=== PATIENT | male | born 1970 | race African-American/Black ===

== ENCOUNTER 2023-08-12 11:30 | Inpatient (IN) | payer OTHER, SELFPAY ==
[2023-08-12] VITALS (11 sets, daily range): BP systolic 123–162; BP diastolic 72–94; BMI 29.3; BMI 28.7
[2023-08-12] MEDS: TYLENOL 1000 MG PO (05:54)
[2023-08-12 06:21] LABS: % Basophils 0.3 % (0-2); % Immature Granulocytes 0.6 % (0-0.5); % Lymphocytes 13.3 % (20.5-51.1); % Monocytes 12.2 % (1.7-9.3); % Neutrophils 72.6 % (42.2-75.2); Absolute Eosinophils 0.1 10^3/uL (0-0.7); Absolute Immature Granulocytes 0.1 10^3/uL (0-0.05); Absolute Lymphocytes 1.6 10^3/uL (1.2-3.4); Absolute Monocytes 1.4 10^3/uL (0.1-0.6); Absolute Neutrophils 8.6 10^3/uL (1.4-6.5); Hematocrit 29.9 % (39.0-52.0); Hemoglobin 10.3 g/dL (13.0-18.0); Mean Corp Hgb Conc. 34.4 g/dL (33.0-37.0); Mean Corpuscular Hgb 31.3 pg (27.0-31.0); Mean Corpuscular Volume 90.9 fL (80.0-94.0); Mean Platelet Volume 8.6 fL (7.4-10.4); Nucleated Red Blood Cells % 0 % (-); Platelet Count 284 10^3/uL (130-400); Red Blood Cell Count 3.29 10^6/uL (4.70-6.10); Red Cell Dist. Width 12.9 % (11.5-14.5); White Blood Cell Count 11.8 10^3/uL (4.8-10.8)
--- NOTE | 2023-08-12 06:31 | ED.GENMED ---
History of Present Illness
General
Chief Complaint: Breathing Problem
Source: patient
Time Seen by Provider: 08/12/23 06:16
Travel History
Have you had any contact with someone who has COVID-19?: No
Do you have any symptoms of coronavirus? Fever > 100 degrees, chills, cough, shortness of breath, sore throat, loss of taste or smell, muscle aches, or headache?: Yes
Symptoms:: fever
History of Present Illness
History of Present Illness:
52-year-old male presents emergency room complaining of sore throat, body aches, fever, chills, cough. Patient has felt this way for the past week. Came to the emergency room today because he is not getting any better. Patient has a history of
lung cancer for which she did receive treatment and states that 'it is in the past'. No nausea or vomiting.
Past History
Past History
ED Past Medical History: Cancer (Lung), HTN and Hypercholesterolemia
ED Past Surgical History: None
Social History
Tobacco: Former smoker
Alcohol: None
Drug: None
Personal:
Living: with family
Employment: Disabled
Family History
Family History: Other (non contributory)
Phy Exam
Physical Exam
Physical Exam:
General: Awake, Alert, Oriented X3. Appears somewhat ill
Vitals: Febrile, tachycardic
Head: Atraumatic
Eyes: Pupils equal, EOMI
Throat: Airway intact, no exudates
Neck: Trachea midline
Lungs: Rhonchi right lower lung
Heart: Regular rate, no murmurs
Abd: Soft, Nontender, No pulsatile mass
Neuro: Nonfocal
Skin: Warm, dry, no rash
Extremities: pulses equal b/l, no edema
Scores
Heart Failure Risk
Heart Failure Risk Score: Not Applicable
Course
Orders/Labs/Results
Orders:
Orders
06/09/24 05:44
Electrocardiogram (*1) Urgent
Reason for Study: Other
Other Reason for Exam: Possible Sepsis
Cardiac Monitoring- Treatment ONCE
EKG- Treatment ONCE
IV Insert/Care/Rem.- Treatment PRN
CR Chest - 2 Views Urgent
Comment:
Reason For Exam: suspected infection
O2 Therapy [RESP] Urgent
Titrate/Wean O2 to maintain O2 sat greater than (%): 93
Special Instructions: TO MAINTAIN CONTINUOUS O2 SATS > OR = 93%
Pulse Ox/cont/shift [RESP] Urgent
Quantity: 1
Special Instructions: CONTINUOUS
08/12/23 05:51
Acetaminophen [Tylenol] 1,000 mg .ROUTE .STK-MED ONE
08/12/23 05:53
Acetaminophen [Tylenol] 1,000 mg PO NOW STA
08/12/23 Breakfast
Cholesterol Lowering
At Your Request: Full Participation
Cholesterol Lowering: Sodium, 2 Gram
08/12/23 06:08
COVID-19 Antigen Urgent
Source: Nasal Swab
Complete Blood Count/With Diff Urgent
Lactic Acid Q4H
Comment: ON ICE, CANCEL 2ND ORDER IF FIRST LACTIC ACID LEVEL <2
Troponin I Urgent
Influenza A+B Rapid Molecular Urgent
MASHA Source: Nasal Swab
Specimen Description:
08/12/23 06:09
Comprehensive Metabolic Panel Urgent
Blood Culture Q30M
MASHA Source: Blood/Venous
Specimen Description:
Comment: FROM 2 SEPARATE SITES
Blood Culture Q30M
MASHA Source: Blood/Venous
Specimen Description:
Comment: FROM 2 SEPARATE SITES
08/12/23 06:27
0.9% Sodium Chloride 1000 ml [Nss] 1,000 ml IV BOLUS
08/12/23 06:33
Ipratropium/Albuterol Sulfate [Duoneb] 3 ml INH R NOW STA
08/12/23 08:03
Ketorolac [Toradol] 15 mg IV NOW STA
08/12/23 08:17
CT Chest Pe Study Urgent
Comment:
Reason For Exam: pleuritic pain, sob
08/12/23 09:22
Azithromycin 500 mg/250 ml [Zithromax Infusion] 500 mg in 250 ml IV NOW
CefTRIAXone [Rocephin] 1,000 mg IV NOW STA
08/12/23 11:05
Admit/Transfer Patient As Directed
Co-Sign Provider:
Level of Care: Inpatient admission
Assign to:: Telemetry
Physician / Group: sebas connor
Diagnosis: Suspect pneumonia,CT chest with malignancy
Reason for Telemetry: Arrhythmia
Date to Stop Telemetry: 08/15/23
Time to Stop Telemetry: 11:00
Reason for Hospitalization: Suspect pneumonia,CT chest with malignancy
Expected length of stay greater than two midnights?: Yes
ELOS- Estimated Length of Stay in days: 3
I certify the patient meets the requirements for IP care: Yes
08/12/23 11:07
Code Status As Directed
Resuscitation Status: Full Code
08/12/23 11:13
Legionella Urinary Antigen Urgent
MASHA Source: Urine
Specimen Description:
Strep pneumoniae Antigen Urgent
MASHA Source: Urine
Specimen Description:
08/12/23 11:16
ONCOLOGY CONSULT Routine
Consulting Provider: Russell Morgan
Was physician already notified: Yes
08/12/23 11:18
PULMONARY CONSULT Routine
Consulting Provider: Juan Juárez
Was physician already notified: Yes
08/12/23 11:[address] Non Medication Order As Directed
Physician Order: Notify MD when med rec done
08/12/23 12:00
Guaifenesin [Mucinex] 1,200 mg PO Q12
08/12/23 13:10
Acetaminophen [Tylenol] 650 mg PO Q4HPRN PRN
Bisacodyl [Dulcolax] 10 mg RECTAL J55OTST PRN
Docusate W/Senna [Senokot-S] 1 tablet PO BIDPRN PRN
Polyethylene Glycol Powder [Miralax] 17 grams PO DAILYPRN PRN
08/12/23 13:10
Activity As Directed
Activity Level: As Tolerated
Intake/ Output As Directed
Frequency: Per unit guidelines
Vital Signs As Directed
Frequency: Per unit guidelines
Weight As Directed
Frequency: Daily
Pulse Ox/spot Check [RESP] Routine
Quantity: 1
DX Deep Vein Thrombosis Video Routine
08/12/23 13:55
Procalcitonin Urgent
PCT Algorithmm Indication: Respiratory
08/12/23 18:00
Enoxaparin Sodium [Lovenox] 40 mg SC QPM
08/13/23 06:00
Complete Blood Count/With Diff IN AM
Comprehensive Metabolic Panel IN AM
08/13/23 09:00
Azithromycin 500 mg/250 ml [Zithromax Infusion] 500 mg in 250 ml IV Q24H
CefTRIAXone [Rocephin] 1,000 mg IV Q24H
08/14/23 06:00
Complete Blood Count/With Diff IN AM
Comprehensive Metabolic Panel IN AM
08/15/23 06:00
Complete Blood Count/With Diff IN AM
Comprehensive Metabolic Panel IN AM
08/15/23 11:00
DC Protocol for Telemetry ONCE
Abnormal Lab Results
08/12/23 08/12/23
06:08 06:09
WBC 11.8 H 10^3/uL
(4.8-10.8)
RBC 3.29 L 10^6/uL
(4.70-6.10)
Hgb 10.3 L g/dL
(13.0-18.0)
Hct 29.9 L %
(39.0-52.0)
MCH 31.3 H pg
(27.0-31.0)
Abs Immat Gran (auto) 0.1 H 10^3/uL
(0-0.05)
Absolute Neuts (auto) 8.6 H 10^3/uL
(1.4-6.5)
Absolute Monos (auto) 1.4 H 10^3/uL
(0.1-0.6)
Immature Gran % 0.6 H %
(0-0.5)
Lymphocytes % 13.3 L %
(20.5-51.1)
Monocytes % 12.2 H %
(1.7-9.3)
Glucose 155 H mg/dl
(70-99)
ALT 55 H U/L
(0-50)
08/12/23 06:08
08/12/23 06:09
Vital Signs
Initial and Last Documented VS:
Initial Vital Signs
Temp Pulse Resp BP Pulse Ox
101.7 F H 128 22 162/90 94
08/12/23 05:36 08/12/23 05:36 08/12/23 05:36 08/12/23 05:36 08/12/23 05:36
Last Documented Vital Signs
Temp Pulse Resp BP Pulse Ox
99 F 108 18 144/85 96
08/12/23 13:09 08/12/23 13:09 08/12/23 13:08/12/23 13:08/12/23 13:09
MDM/Problems Addressed
Differential Diagnosis Includes:
Pneumonia, pulmonary embolism, viral illness, pneumonitis, progression of lung cancer
MDM/Problems Addressed:
Patient presents with fever, chills, malaise. Chest x-ray shows increased density in the area of his previous lung cancer. CT angiogram was performed to exclude PE or other sources of pain. CT shows changes suggestive of pneumonia versus
recurrence of the lung cancer. Patient's been ill for a week, is lethargic and looks unwell. Will start IV antibiotics for community-acquired pneumonia and hospitalize for further evaluation
*Radiology
Radiology exam reviewed: radiology read reviewed
*Pulse Oximetry
Patient hypoxic: no
*Critical Care Note
Total Time (30-74mins, 75-104mins- exclusive of procedures): Not Applicable
ED Attending Note
-
Portions of this chart may have been created with voice recognition software.� Occasional wrong word or��sound alike� substitutions may have occurred due to the inherent limitations of voice recognition software.
Discharge Plan
Departure
Patient Disposition: Admit
Date of Disposition: 08/12/23
Time of Disposition: 09:32
Admit to: Med/Surg
Presentation/result/management discussed w/ accepting MD/DO: Hospitalist
Condition: Fair
Discharge Problem:
Fever, Pneumonia
Interventions
Interventions:
*Risk Screen - Suicide Last Done: 08/12/23 08:25
*General Assessment Last Done: 08/12/23 12:45
*Neglect/Abuse Screening Last Done: 08/12/23 08:25
ED- Fall Risk Assessment Last Done: 08/12/23 12:45
*ED COVID-19 Vaccine History Last Done: 08/12/23 08:25
*Nursing Disposition Last Done: 08/12/23 12:45
ED- Cardiac Assessment Last Done: 08/12/23 06:26
ED- Pulmonary Assessment Last Done: 08/12/23 06:26
Discharge Date and Time
Discharge Date/Time: 08/12/23 12:45
[2023-08-12 06:37] LABS: ALT (SGPT) 55 U/L (0-50); AST (SGOT) 50 U/L (17-59); Albumin 3.9 g/dl (3.5-5.0); Alkaline Phosphatase 122 U/L (38-126); Blood Urea Nitrogen 20 mg/dl (9-20); Calcium 9.7 mg/dl (8.4-10.2); Carbon Dioxide 23 mmol/L (22-30); Chloride 103 mmol/L (98-107); Estimated Creatinine Clearance 107 ml/min; Glucose 155 mg/dl (70-99); Potassium 4.4 mmol/L (3.5-5.1); Sodium 136 mmol/L (135-145); Total Bilirubin 1.1 mg/dl (0.2-1.3); eGFR > 60.00
[2023-08-12 06:37] LABS: Lactic Acid 0.8 mmol/L (0.7-2.0)
[2023-08-12] MEDS: DUONEB 3 ML INH ×2 (06:43→19:46)
[2023-08-12] MEDS: NSS 1000 IV (06:44)
[2023-08-12 06:48] LABS: Troponin I < 0.012 ng/ml
[2023-08-12 06:49] LABS: COVID-19 Antigen Negative (Negative)
[2023-08-12] MEDS: TORADOL 15 MG IV (08:06)
[2023-08-12] MEDS: ZITHROMAX INFUSION 250 IV (09:32)
[2023-08-12] MEDS: ROCEPHIN 1000 MG IV (09:32)
--- NOTE | 2023-08-12 11:17 | HPS.HSE ---
Family Physician
-
Family Physician: Alexys Philippe MD
Chief Complaint
-
Fever
History of Present Illness
52-year-old male with past medical history of squamous cell carcinoma of the lung, hypertension, hyperlipidemia came to the hospital with fever, chills, cough and sore throat. Patient is has been going on for about past week. He has fever in the
ED. Currently denies any chest pain, shortness of breath. Denies any abdominal pain. Denies any sick contacts. Denies any recent travel. Denies any nausea, vomiting, diarrhea, constipation.
Medical History
Past Medical History
Past Medical History: Reports Cancer (Lung), HTN and Hypercholesterolemia
Past Surgical History: Reports None
Social History
Tobacco: Former Smoker
Alcohol: None
Drug: Marijuana
Family History
Family History: Not pertinent
Allergies / Home Medications
Allergies reflects when Allergies were last updated in [facility].
Home Medications with original date entered in [facility]
Allergy/Medication List:
Allergies
Allergy/AdvReac Type Severity Reaction Status Date / Time
No Known Allergies Allergy Verified 08/12/23 05:34
Home Medications
atorvastatin 40 mg tablet (Lipitor) 40 mg PO DAILY 08/12/23
diphenhydramine 25 mg-acetaminophen 500 mg tablet (Tylenol PM Extra Strength) 1 tab PO HSPRN PRN sleep 08/12/23
ferrous sulfate 325 mg (65 mg iron) tablet 325 mg PO DAILY 08/12/23
hydrochlorothiazide 12.5 mg tablet 12.5 mg PO DAILY 08/12/23
losartan 50 mg tablet 50 mg PO DAILY 08/12/23
oxycodone-acetaminophen 10 mg-325 mg tablet 1 tab PO Q4HPRN PRN severe pain 08/12/23
tizanidine 2 mg tablet 2 mg PO HSPRN PRN spasms 08/12/23
Review of Systems
-
History Source: Patient
A 12 point ROS was completed and negative except as noted: Yes
Respiratory: Reports Cough
Physical Exam
Vital Signs
Vital Signs
Temp Pulse Resp BP Pulse Ox
98.7 F 98 34 128/86 98
08/12/23 08:18 08/12/23 11:01 08/12/23 11:01 08/12/23 11:01 08/12/23 11:01
Physical Exam
General: Well Nourished and No Apparent Distress
Respiratory: Clear and Non Labored Respirations; No Wheezes
Cardiac: S1/S2 and Regular Rhythm
GI: Soft, Non Tender and Non Distended
Genito-urinary: Deferred by me
Musculoskeletal: No Edema
Neuro: Awake, Alert and Oriented
Psych: Calm and Intact Judgment/Insight
Laboratory Results
-
08/12/23 06:08
08/12/23 06:09
Laboratory Results
Lactic Acid Cancelled 08/12/23 09:45
Total Bilirubin 1.1 mg/dl (0.2-1.3) 08/12/23 06:09
AST 50 U/L (17-59) 08/12/23 06:09
ALT 55 U/L (0-50) H 08/12/23 06:09
Alkaline Phosphatase 122 U/L (38-126) 08/12/23 06:09
Troponin I < 0.012 ng/ml 08/12/23 06:08
Data Reviewed
-
Diagnostic Radiology: Report Reviewed by me, Discussed with Patient and Discussed with Family
CT Scan: Report Reviewed by me, Discussed with Patient and Discussed with Family
Lab Data: Labs Reviewed by me, Discussed with Patient and Discussed with Family
Impression/Plan
-
Sepsis (fever, tachycardia,tachypnea) suspect secondary to pneumonia
Check Pro-Ike
Continue with rocephin,azithromycin
CT chest with large recurrent lung cancer and perihilar right lung involving the right upper, middle and lower lobe with encasement of the proximal bronchi and pulmonary arteries. Oncology consulted. Patient follows up with Dr. Morrow.
Per patient and family he has come pleated his cancer treatment twice around 6 years ago. Appears to have gotten radiation and chemo
Consult pulmonary
duonebs prn
Currently not on any treatment.
History of hypertension
Continue HCTZ, losartan
Hyperlipidemia
DVT prophylaxis
Lovenox
Full code
I spent a total of 77 minutes with the patient or on the floor. More than 50% of this time involved counseling and coordination of care.
[2023-08-12] MEDS: TYLENOL 325 MG PO ×2 (13:41→17:47)
[2023-08-12] MEDS: MUCINEX 1200 MG PO (13:41)
[2023-08-12] MEDS: ROXICODONE 10 MG PO ×3 (13:42→21:53)
[2023-08-12 14:38] LABS: Procalcitonin 0.51 ng/ml (0.0-0.25)
--- NOTE | 2023-08-12 15:33 | PTCARENOTE ---
Received pt from ED.Pt awake, alert and oriented x3. Pt c/o pain in back ( chronic) and headache medicated per orders. Pt VSS, 96% on RA. Pt Sinus Tach on tele. Pt oriented to room, call duvall within reach, plan of care ongoing.
--- NOTE | 2023-08-12 15:41 | CON.PUL ---
Consultation
Consultation Request
Date/Time Consultation Requested: 08/12/20231117
Date/Time Consultation Performed: 08/12/2023 - 1520
Requesting Provider: Dr. Acosta
Performing Provider: Dr. Juárez
Reason for Consultation: Abnormal chest CT
Medical History
-
Chief Complaint: Fever
History of Present Illness:
52-year-old male with a past medical history of right-sided small cell lung cancer (managed by [facility]) s/p chemo-XRT (completed in 2018) who presents with coughing and chills. Patient had a fever of 101.7 �F in triage, with BP 162/90, saturating
94% on room air, tachypneic to 22 breaths/min and tachycardic to 128 bpm. Labs showed leukocytosis to 11.8, anemia to 10.3, slightly elevated ALT of 55, negative troponin of <0.012, slightly elevated procalcitonin of 0.51 and a negative COVID
antigen. Blood cultures were collected. CXR obtained showing a large dense spiculated opacity in the right hilum similar in size but increased in density since August 2021. CTA of the chest was done showing a right perihilar dense consolidation
encasing the pulmonary artery as well as encasing/narrowing the proximal right middle lobe bronchus and right lower lobe bronchus. There are linear bands of scarring seen extending peripherally from the consolidation towards the pleural surface.
There is also been interval enlargement of a 6 mm right lower lobe pulmonary nodule (previously measured 4mm on CTA chest from 2017). Pulmonary service now consulted for additional management/recommendations.
I saw the patient this afternoon with at bedside, Radha. He was resting comfortably on room air. He still has a cough and is receiving a nebulizer treatment when I was interviewing him. He says that he has a history of right-sided lung cancer
and finished his chemo and radiation therapy in 2018. Of note, he had radiation of both his lung and his brain. He has a documented history of small cell lung cancer as per prior documentation here in [facility] from 2017. He says that he gets CT
scans annually but usually gets them done at [facility] or [facility]. He believes his last CT chest was a few months ago. He has albuterol at home but he rarely uses it. She does not carry diagnosis of asthma
or COPD. He says that his cough when he first came in was initially yellow, but then it turned green. He does not have any bloody phlegm. No recent travel, no recent sick contacts that he can identify and no recent antibiotics taken. He
currently denies chest pain, headache, abdominal pain, fevers or chills.
PMHx: Hx of R-perihilar SCLC, hypertension, hypercholesterolemia and former tobacco use disorder, history of pulmonary embolism
PSHx: Left rotator cuff surgery, Chemo-Port
Past Medical History
Past Medical History: Other (Above as per HPI)
Past Surgical History: Other (Above as per HPI)
Social History
Tobacco: Former Smoker
Alcohol: None
Drug: Marijuana
Family History
Family History: Hypertension
Allergies / Home Medications
Allergies
Allergy/AdvReac Type Severity Reaction Status Date / Time
No Known Allergies Allergy Verified 08/12/23 05:34
Home Medications
�Medication �Instructions �Recorded �Confirmed �Last Taken �Type
atorvastatin 40 mg tablet (Lipitor) 40 mg PO DAILY 08/12/23 08/12/23 08/11/23 History
diphenhydramine 25 1 tab PO HSPRN PRN sleep 08/12/23 08/12/23 Unknown History
mg-acetaminophen 500 mg tablet
(Tylenol PM Extra Strength)
ferrous sulfate 325 mg (65 mg 325 mg PO DAILY 08/12/23 08/12/23 Unknown History
iron) tablet
hydrochlorothiazide 12.5 mg tablet 12.5 mg PO DAILY 08/12/23 08/12/23 08/11/23 History
losartan 50 mg tablet 50 mg PO DAILY 08/12/23 08/12/23 08/11/23 History
oxycodone-acetaminophen 10 mg-325 1 tab PO Q4HPRN PRN severe pain 08/12/23 08/12/23 Unknown History
mg tablet
tizanidine 2 mg tablet 2 mg PO HSPRN PRN spasms 08/12/23 08/12/23 Unknown History
Review of Systems
-
History Source: Patient
All other systems: Negative unless noted
Vitals / Labs / Diagnostic Testing
Vital Signs
Temp Pulse Resp BP Pulse Ox
98.7 F 95 22 136/81 97
08/12/23 15:54 08/12/23 15:54 08/12/23 15:54 08/12/23 15:54 08/12/23 15:54
Lab Data
08/12/23 06:08
08/12/23 06:09
Microbiology
08/12/23 15:07 Urine Legionella Urinary Antigen - Final
Negative for Legionella pneumophila Serogroup 1 antigen.
A negative result does not rule out the possiblity of
Legionella infection due to other serogroups or species of
Legionella. Clinical correlation is recommended.
08/12/23 15:07 Urine Streptococcus pneumoniae Antigen (M - Final
Negative for Streptococcus pneumoniae antigen.
A negative result does not exclude infection with
Streptococcus pneumoniae. Clinical correlation is
recommended.
08/12/23 06:08 Nasal Swab Influenza Types A & B (BRINDA) - Final
Negative for Influenza A & B, NAAT
Negative results must be combined with clinical observations
and patient history.
Nucleic Acid Amplification test (NAAT)performed on the
[employer] platform.
Diagnostic Testing:
Physical Exam
-
HEENT: Normocephalic and Anicteric
Cardiovascular: Peripheral Edema (negative)
Respiratory: Wheeze (Bilaterally upon expiration), Rales (Right hemithorax), Rhonchi (negative) and Accessory Resp Muscle Use (negative)
GI: Soft, Non Distended, Non Tender and Normal Bowel Sounds
Neurology: AO x 3 and Tremors (negative)
Skin: Warm and Dry
General: Comfortable, Fever (negative) and Chills (negative)
Assessment
-
Assessment: 52-year-old male with a past medical history of lung cancer (managed by [facility]) who presents with coughing and chills. Patient had a fever of 101.7 �F in triage, with BP 162/90, saturating 94% on room air, tachypneic to 22 breaths/min
and tachycardic to 128 bpm. Labs showed leukocytosis to 11.8, anemia to 10.3, slightly elevated ALT of 55, negative troponin of <0.012, slightly elevated procalcitonin of 0.51 and a negative COVID antigen. Blood cultures were collected. CXR
obtained showing a large dense spiculated opacity in the right hilum similar in size but increased in density since August 2021. CTA of the chest was done showing a right perihilar dense consolidation encasing the pulmonary artery as well as
encasing/narrowing the proximal right middle lobe bronchus and right lower lobe bronchus. There are linear bands of scarring seen extending peripherally from the consolidation towards the pleural surface. There is also been interval enlargement of
a 6 mm right lower lobe pulmonary nodule (previously measured 4mm on CTA chest from 2017). Pulmonary service now consulted for additional management/recommendations.
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
Impression:
#Right perihilar mass measuring 14.2 x 7.2 x 7.2 cm suspicious for recurrent lung cancer, however he says he has had multiple CT chest imaging done either at [facility] or [facility]
-This right perihilar mass is encasing the proximal right middle lobe bronchus/right lower lobe bronchus as well as the right main pulmonary artery
#History of right-sided perihilar small cell lung cancer s/p chemo/radiation (completed in 2017) with postradiation changes seen on CT chest from January 27, 2017; Hx of whole brain radiation
#Leukocytosis
#Anemia
#Former tobacco use disorder
# History of eosinophilia (seen on prior CBC from 10/2016) - perhaps this is due to undiagnosed asthma as he has albuterol at home that he sometimes needs to use several times a year when ill
Plan:
- This right-sided perihilar consolidation is highly concerning for recurrent lung cancer, however need to compare to recent imaging that he has had - need to obtain medical records of recent CT chest imaging done both at [facility] and
[facility].
- Once Oncology sees the patient, they will also be able to compare this current CT chest to their priro CT chest imaging, and we will see if there is any acute changes
- The patient clinically has signs and symptoms of pneumonia with SOB, purulent sputum production, weakness, fever and consolidation on CT chest
- If this is a recurrent lung cancer, then there could be a large component of postobstructive pneumonia as well; low likelihood this is solely a pneumonia
- Recommend to continue with antibiotics and give 7 days of beta-lactam and 5 days of azithromycin
- If this R-hilar consolidative mass is acutely different and concerning when compared to former chest imaging done at outside hospitals, then there are two options that we can do:
- We can give antibiotics and repeat CT chest without contrast in about 4-6 weeks, and if right-sided mass persists then he should obtain bronchoscopy with biopsy.
- Other option is to assume that his right perihilar mass is likely due to recurrent malignancy, and we can set up a bronchoscopy for this patient while he is inpatient
- I do not see any mediastinal LN for biopsy; difficult to assess if he has a right hilar LN, but I am sure there is right hilar lymphadenopathy considering the size of this lesion - this can be assessed during EBUS
- Pulmonary services available if bronchoscopy with biopsy is recommended by oncology
- Considering the patient is diffusely wheezing in both lung sauer with a history of eosinophilia (albeit back in 2017), I will start him on standing DuoNebs QID and give short course of prednisone x 5 days. He has albuterol at home, and I
questions if he has a history of asthma, perhaps undiagnosed as the pt denies having ever been told he has lung disease besides lung cancer. He should obtain full PFTs as an outpatient.
- Maintain SpO2 >90-94% with supplemental O2 as needed
- Incentive spirometer encouraged
- Replete electrolytes with K>4, Mg>2
- Maintain euglycemia with goal BG >100 and <180
- prn nebulized bronchodilators
- DVT ppx
Pulmonary service will continue to follow along.
Total time spent today was 55 minutes for this encounter. Time includes reviewing laboratory test/imaging results, reviewing pertinent medical records, obtaining and reviewing medical history, performing an appropriate exam, ordering medications,
tests and procedures. Time also includes documentation of this encounter, coordinating patient care and communicating with other healthcare professionals. Total time does not include separately billed tests performed on this date of service.
Data:
CTA Chest 08-12-2023:
1. LARGE 14 cm RECURRENT LUNG CANCER in the PERIHILAR RIGHT LUNG involving the right upper, middle, and lower lobes with encasement of the proximal bronchi and pulmonary arteries. Progressive radiation pneumonitis or pneumonia are considered much
less likely etiologies for the extensive perihilar consolidation.
2. Small pulmonary metastases in the right lower lobe which have increased in size.
3. Mild scarring throughout the peripheral right lung.
4. Severe scarring in the upper pole of the left kidney.
[2023-08-12] MEDS: LOVENOX 40 MG SC (17:49)
[2023-08-12] MEDS: DELTASONE 50 MG PO (21:53)
[2023-08-12] MEDS: BENADRYL 25 MG PO (22:15)
[2023-08-12] MEDS: TYLENOL 500 MG PO (22:15)
[2023-08-13] VITALS (7 sets, daily range): BP systolic 122–151; BP diastolic 81–104; BMI 28.7
[2023-08-13] MEDS: MUCINEX 1200 MG PO ×3 (00:15→19:53)
[2023-08-13] MEDS: TYLENOL 325 MG PO ×3 (05:23→18:35)
[2023-08-13] MEDS: ROXICODONE 10 MG PO ×4 (05:23→22:57)
[2023-08-13 06:35] LABS: % Basophils 0.1 % (0-2); % Eosinophils 0.1 % (0-6); % Immature Granulocytes 0.9 % (0-0.5); % Lymphocytes 10.5 % (20.5-51.1); % Monocytes 2.1 % (1.7-9.3); % Neutrophils 86.3 % (42.2-75.2); Absolute Immature Granulocytes 0.1 10^3/uL (0-0.05); Absolute Monocytes 0.2 10^3/uL (0.1-0.6); Absolute Neutrophils 7.9 10^3/uL (1.4-6.5); Hematocrit 32.2 % (39.0-52.0); Hemoglobin 10.5 g/dL (13.0-18.0); Mean Corp Hgb Conc. 32.6 g/dL (33.0-37.0); Mean Corpuscular Hgb 30.8 pg (27.0-31.0); Mean Corpuscular Volume 94.4 fL (80.0-94.0); Mean Platelet Volume 9.4 fL (7.4-10.4); Nucleated Red Blood Cells % 0 % (-); Platelet Count 315 10^3/uL (130-400); Red Blood Cell Count 3.41 10^6/uL (4.70-6.10); Red Cell Dist. Width 12.7 % (11.5-14.5); White Blood Cell Count 9.1 10^3/uL (4.8-10.8)
[2023-08-13 06:46] LABS: ALT (SGPT) 53 U/L (0-50); AST (SGOT) 41 U/L (17-59); Alkaline Phosphatase 128 U/L (38-126); Blood Urea Nitrogen 17 mg/dl (9-20); Calcium 10.3 mg/dl (8.4-10.2); Carbon Dioxide 22 mmol/L (22-30); Chloride 105 mmol/L (98-107); Estimated Creatinine Clearance 120 ml/min; Glucose 162 mg/dl (70-99); Potassium 5.2 mmol/L (3.5-5.1); Sodium 138 mmol/L (135-145); Total Bilirubin 0.9 mg/dl (0.2-1.3); Total Protein 7.2 g/dl (6.3-8.2); eGFR > 60.00
[2023-08-13] MEDS: DUONEB 3 ML INH ×4 (07:34→19:33)
[2023-08-13] MEDS: STERILE WATER FOR INJECTION 10 ML IV (08:56)
[2023-08-13] MEDS: DELTASONE 50 MG PO (08:56)
[2023-08-13] MEDS: ORETIC 12.5 MG PO (08:56)
[2023-08-13] MEDS: LIPITOR 40 MG PO (08:56)
[2023-08-13] MEDS: COZAAR 50 MG PO (08:56)
[2023-08-13] MEDS: FEOSOL 325 MG PO (08:56)
[2023-08-13] MEDS: ZITHROMAX INFUSION 250 IV (08:57)
[2023-08-13] MEDS: ROCEPHIN 1000 MG IV (08:57)
--- NOTE | 2023-08-13 09:51 | W.PN.PUL.V3 ---
Today's Communication / Plan
-
Finite course of antibiotics.
Close outpatient follow-up with CT chest in for-6 weeks and consideration towards biopsy at that time
Assessment
-
Assessment: 52-year-old male with a past medical history of lung cancer (managed by [facility]) who presents with coughing and chills. Patient had a fever of 101.7 �F in triage, with BP 162/90, saturating 94% on room air, tachypneic to 22 breaths/min
and tachycardic to 128 bpm. Labs showed leukocytosis to 11.8, anemia to 10.3, slightly elevated ALT of 55, negative troponin of <0.012, slightly elevated procalcitonin of 0.51 and a negative COVID antigen. Blood cultures were collected. CXR
obtained showing a large dense spiculated opacity in the right hilum similar in size but increased in density since August 2021. CTA of the chest was done showing a right perihilar dense consolidation encasing the pulmonary artery as well as
encasing/narrowing the proximal right middle lobe bronchus and right lower lobe bronchus. There are linear bands of scarring seen extending peripherally from the consolidation towards the pleural surface. There is also been interval enlargement of
a 6 mm right lower lobe pulmonary nodule (previously measured 4mm on CTA chest from 2017). Pulmonary service now consulted for additional management/recommendations.
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
Impression:
#Right perihilar mass measuring 14.2 x 7.2 x 7.2 cm suspicious for recurrent lung cancer, however he says he has had multiple CT chest imaging done either at [facility] or [facility]
-This right perihilar mass is encasing the proximal right middle lobe bronchus/right lower lobe bronchus as well as the right main pulmonary artery
#History of right-sided perihilar small cell lung cancer s/p chemo/radiation (completed in 2017) with postradiation changes seen on CT chest from January 27, 2017; Hx of whole brain radiation
#Leukocytosis
#Anemia
#Former tobacco use disorder
# History of eosinophilia (seen on prior CBC from 10/2016) - perhaps this is due to undiagnosed asthma as he has albuterol at home that he sometimes needs to use several times a year when ill
Plan:
Respiratory status relatively stable.
Reviewed oxygen.
Increase activity.
Nebulizers if needed-currently not bronchospastic.
Mucolytic's as needed.
Steroid taper
Radiographs reviewed..
Oncology evaluation noted-right hilar abnormalities likely new and patient might require biopsy.
Check cultures.
Treat for pneumonia.
Close outpatient follow-up with CT chest/eye on in for-6 weeks with consideration towards bronchoscopy at that time if clinically indicated.
DVT prophylaxis.
Nutrition
Early mobilization.
Outpatient pulmonary follow-up
Data:
CTA Chest 08-12-2023:
1. LARGE 14 cm RECURRENT LUNG CANCER in the PERIHILAR RIGHT LUNG involving the right upper, middle, and lower lobes with encasement of the proximal bronchi and pulmonary arteries. Progressive radiation pneumonitis or pneumonia are considered much
less likely etiologies for the extensive perihilar consolidation.
2. Small pulmonary metastases in the right lower lobe which have increased in size.
3. Mild scarring throughout the peripheral right lung.
4. Severe scarring in the upper pole of the left kidney.
Subjective Data
-
Date of Service:
Date of Service: August 13, 2023
Chief Complaint: Pulmonary Follow Up and Dyspnea Follow Up
Subjective:
Minimal nonproductive cough, no chest pain, abdominal pain
Review of Systems
General: Other ( per HPI)
Objective Data
Data Reviewed
Vital Signs / I&O:
Vital Signs
Temp Pulse Resp BP Pulse Ox
98.4 F 83 16 142/87 95
08/13/23 07:00 08/13/23 07:35 08/13/23 07:35 08/13/23 07:00 08/13/23 07:35
Intake and Output
08/12/23 08/13/23 08/14/23
06:59 06:59 06:59
Intake Total 480 / 480
Balance 480 / 480
SaO2: 95
Physical Exam
General: Respiratory Distress (n) and Comfortable
HEENT: Normocephalic, Anicteric and Moist Mucous Membranes
Cardiovascular: Regular Rhythm and Murmur (n)
Respiratory: Wheeze (n), Crackles (n), Rhonchi (n), Non-Labored Respirations and Accessory Resp Muscle Use (n)
GI: Soft, Non Distended and Non Tender
Neurology: Awake and No Motor Deficits
Skin: Warm, Good Color, Cyanosis (n) and Jaundice (n)
Labs/Micro/Reports
Lab Data
08/13/23 05:22
08/13/23 05:22
Microbiology
08/12/23 06:09 Blood/Venous Blood Culture - Preliminary
No Growth in 24 hours- Final report to follow
08/12/23 06:09 Blood/Venous Blood Culture - Preliminary
No Growth in 24 hours- Final report to follow
08/12/23 15:07 Urine Legionella Urinary Antigen - Final
Negative for Legionella pneumophila Serogroup 1 antigen.
A negative result does not rule out the possiblity of
Legionella infection due to other serogroups or species of
Legionella. Clinical correlation is recommended.
08/12/23 15:07 Urine Streptococcus pneumoniae Antigen (M - Final
Negative for Streptococcus pneumoniae antigen.
A negative result does not exclude infection with
Streptococcus pneumoniae. Clinical correlation is
recommended.
08/12/23 06:08 Nasal Swab Influenza Types A & B (BRINDA) - Final
Negative for Influenza A & B, NAAT
Negative results must be combined with clinical observations
and patient history.
Nucleic Acid Amplification test (NAAT)performed on the
[employer] platform.
[2023-08-13] MEDS: LOKELMA 10 GRAM PO (10:59)
--- NOTE | 2023-08-13 11:11 | W.PN.HOSP.TC ---
Today's Communication/Plan
-
monitor vitals
see plan
cw abx
onc to see
pulm following
cw steroids,nebs
Assessment / Plan
Assessment / Plan
General: Well Nourished and No Apparent Distress
Respiratory: Clear and Non Labored Respirations
Cardiac: S1/S2 and Regular Rhythm
GI: Soft, Non Tender and Non Distended
Musculoskeletal: No Edema
Neuro: Awake, Alert and Oriented
Psych: Calm and Intact Judgment/Insight
Sepsis (fever, tachycardia,tachypnea) suspect secondary to pneumonia
Pro-Ike elevated
Continue with rocephin,azithromycin
CT chest with large recurrent lung cancer and perihilar right lung involving the right upper, middle and lower lobe with encasement of the proximal bronchi and pulmonary arteries. Oncology consulted. Patient follows up with Dr. Morrow.
Per patient and family he has come pleated his cancer treatment twice around 6 years ago. Appears to have gotten radiation and chemo
pulmonary following
given wheezing and sob,pulmonary started IV steroids. does have hx of eosinophilia
duonebs prn
Currently not on any treatment.
mild hyperkalmeia
lokelma,monitor
History of hypertension
Continue HCTZ, losartan
mild hypercalcemia
monitor
Hyperlipidemia
DVT prophylaxis
Lovenox
Full code
I spent a total of 52 minutes with the patient or on the floor. More than 50% of this time involved counseling and coordination of care.
Anticipated Discharge: 24 - 48 hours
Subjective/Interval History
-
Date of Service: August 13, 2023
denies pain
Objective Data
-
Labs:
Laboratory Results
08/13/23
05:22
WBC 9.1
Hgb 10.5 L
Hct 32.2 L
Plt Count 315
Sodium 138
Potassium 5.2 H
Chloride 105
Carbon Dioxide 22
BUN 17
Creatinine 0.8
Glucose 162 H
Calcium 10.3 H
Total Bilirubin 0.9
AST 41
ALT 53 H
Alkaline Phosphatase 128 H
Vital Signs:
Vital Signs
Temp Pulse Resp BP Pulse Ox
98.4 F 83 16 142/87 95
08/13/23 07:00 08/13/23 07:35 08/13/23 07:35 08/13/23 07:00 08/13/23 09:51
I&O
08/12/23 08/13/23 08/14/23
06:59 06:59 06:59
Intake Total 480 / 480
Balance 480 / 480
--- NOTE | 2023-08-13 11:58 | CON.ONC ---
Impression
Impression
Abnormal CT scan, suggestive of recurrent/new bronchogenic carcinoma
History of limited stage small cell lung cancer, status posttreatment with cisplatin and SUBWAY GUARD-16, affected area radiation therapy, and prophylactic cranial irradiation
Known radiation fibrosis of the right lung
Plan
Plan
It is difficult to precisely gauge what is going on just on the basis of the written reports, but from what I see, the CT done here is quite different from 1 done 1 year ago at [facility]. I suppose some of this could be infection/inflammation.
However, I am quite concerned that this is carcinoma. It would be very unusual for small cell carcinoma to recur this late, but he is obviously at risk for development of a new cancer as well. I will defer to pulmonary on this. We could consider
bronchoscopy now, or give him 4 to 6 weeks for any acute changes from presumed infection to resolve, and then make a decision about bronchoscopy.
Patient History
History of Present Illness
Consult from Dr. Acosta regarding lung cancer
This 52-year-old man came to the emergency room with fever and cough. He ultimately underwent a CT scan which showed a 14 x 7 x 7 consolidation in the right lung suggestive of malignancy. He did have a CT of the chest in June 2022 which is
reported to have shown a similar abnormality, but only 3.7 x 2.0 cm. He does have a history of small cell lung cancer that was treated with chemotherapy as well as radiation therapy to the right lung. He did have some form of persistent
abnormality consistent with scar tissue and radiation fibrosis. He was actually discharged from our office last year, as he had reached his 5-year gab. He states he has not been smoking cigarettes, but does occasionally smoke some medical
marijuana. He had been heavy smoker prior to this.
Past-Medical/Surgical History
He has otherwise been in good health.
Social history: He does not smoke tobacco at present. 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
Family history is noncontributory.
Patient Medication
�Medication �Instructions �Recorded �Confirmed �Last Taken �Type
atorvastatin 40 mg tablet (Lipitor) 40 mg PO DAILY High Cholesterol 08/12/23 08/12/23 08/11/23 History
diphenhydramine 25 1 tab PO HSPRN PRN sleep 08/12/23 08/12/23 Unknown History
mg-acetaminophen 500 mg tablet
(Tylenol PM Extra Strength)
ferrous sulfate 325 mg (65 mg 325 mg PO DAILY Supplement 08/12/23 08/12/23 Unknown History
iron) tablet
hydrochlorothiazide 12.5 mg tablet 12.5 mg PO DAILY Blood 08/12/23 08/12/23 08/11/23 History
Pressure/edema
losartan 50 mg tablet 50 mg PO DAILY Blood Pressure 08/12/23 08/12/23 08/11/23 History
oxycodone-acetaminophen 10 mg-325 1 tab PO Q4HPRN PRN severe pain 08/12/23 08/12/23 Unknown History
mg tablet
tizanidine 2 mg tablet 2 mg PO HSPRN PRN spasms 08/12/23 08/12/23 Unknown History
Active Medications
Generic Name Dose Route Start Last Admin
Trade Name Freq PRN Reason Stop Dose Admin
Acetaminophen 650 mg 08/12/23 13:10
Acetaminophen 325 Mg Tablet PO 09/09/23 13:09
Q4HPRN PRN
mild pain/SHARMA/temp> 100.4F
Acetaminophen 325 mg 08/12/23 13:33 08/13/23 11:20
Acetaminophen 325 Mg Tablet PO 09/09/23 13:32 325 mg
Q4HPRN PRN Administration
severe pain
Acetaminophen 500 mg 08/12/23 22:00 08/12/23 22:15
Acetaminophen 500 Mg Tablet PO 09/09/23 21:59 500 mg
HSPRN PRN Administration
sleep
Albuterol/Ipratropium 3 ml 08/12/23 13:27 08/12/23 19:46
Ipratropium 0.5/Albuterol 3 Mg (3 Ml Ampul) INH 3 ml
R Q4HPRN PRN Administration
sob or wheezing
Protocol
Albuterol/Ipratropium 3 ml 08/13/23 08:00 08/13/23 11:39
Ipratropium 0.5/Albuterol 3 Mg (3 Ml Ampul) INH 3 ml
R QID WILLIE Administration
Protocol
Atorvastatin Calcium 40 mg 08/13/23 08:00 08/13/23 08:56
Atorvastatin (Lipitor) 40 Mg Tablet PO 09/10/23 07:59 40 mg
DAILY WILLIE Administration
Bisacodyl 10 mg 08/12/23 13:10
Bisacodyl 10 Mg Rectal Suppository RECTAL 09/09/23 13:09
[id number] PRN
constipation
Ceftriaxone Sodium 1,000 mg 08/13/23 09:00 08/13/23 08:57
Ceftriaxone 1000 Mg / 10 Ml Vial IV 1,000 mg
Q24H WILLIE Administration
Diphenhydramine HCl 25 mg 08/12/23 22:00 08/12/23 22:15
Diphenhydramine 25 Mg Capsule PO 09/09/23 21:59 25 mg
HSPRN PRN Administration
sleep
Enoxaparin Sodium 40 mg 08/12/23 18:00 08/12/23 17:49
Enoxaparin Sodium 40 Mg/0.4 Ml Syringe SC 09/09/23 17:59 40 mg
QPM WILLIE Administration
Ferrous Sulfate 325 mg 08/13/23 08:00 08/13/23 08:56
Ferrous Sulfate 325 Mg Tablet PO 09/10/23 07:59 325 mg
DAILY WILLIE Administration
Guaifenesin 1,200 mg 08/12/23 12:00 08/13/23 08:56
Guaifenesin 600 Mg Extended Release Tablet PO 09/09/23 11:59 1,200 mg
Q12 WILLIE Administration
Hydrochlorothiazide 12.5 mg 08/13/23 08:00 08/13/23 08:56
Hydrochlorothiazide 12.5 Mg Tablet PO 09/10/23 07:59 12.5 mg
DAILY WILLIE Administration
Azithromycin 500 mg in 250 mls @ 250 mls/hr 08/13/23 09:00 08/13/23 08:57
Zithromax Infusion IV 250 mls
Q24H WILLIE Administration
Losartan Potassium 50 mg 08/13/23 08:00 08/13/23 08:56
Losartan 50 Mg Tablet PO 09/10/23 07:59 50 mg
DAILY WILLIE Administration
Oxycodone HCl 10 mg 08/12/23 13:32 08/13/23 11:21
Oxycodone 10 Mg Regular Release Tablet PO 08/26/23 13:31 10 mg
Q4HPRN PRN Administration
severe pain
Polyethylene Glycol 17 grams 08/12/23 13:10
Polyethylene Glycol Powder 17 Grams Packet PO 09/09/23 13:09
DAILYPRN PRN
constipation
Prednisone 50 mg 08/13/23 08:00 08/13/23 08:56
Prednisone 50 Mg Tablet PO 08/17/23 07:59 50 mg
DAILY WILLIE Administration
Senna/Docusate Sodium 1 tablet 08/12/23 13:10
Docusate W/Senna (Yaritza-Colace) Tablet PO 09/09/23 13:09
BIDPRN PRN
constipation
Sodium Chloride 0 flush 08/12/23 14:00
Sodium Chloride 0.9% (Flush) Syringe IV 09/09/23 13:59
PER PROTOCOL WILLIE
Sterile Water 10 ml 08/13/23 09:00 08/13/23 08:56
Sterile Water For Injection 10 Ml Vial IV 09/10/23 08:59 10 ml
Q24H WILLIE Administration
Tizanidine HCl 2 mg 08/12/23 13:03
Tizanidine 2 Mg Tablet PO 09/09/23 13:02
HSPRN PRN
spasms
Review of Systems
-
All Other Systems: Reviewed and Negative
Physical Exam
-
Physical examination shows the patient to be in no acute distress.
HEENT exam is unremarkable.
There are no palpable nodes.
Chest reveals scattered wheezes.
The heart is regular with no murmur or gallop.
The abdomen is soft and nontender with no organomegaly or masses.
Extremities are unremarkable.
Neurologic is grossly intact.
Labs
Lab Results
WBC 9.1 10^3/uL (4.8-10.8) 08/13/23 05:22
RBC 3.41 10^6/uL (4.70-6.10) L 08/13/23 05:22
Hgb 10.5 g/dL (13.0-18.0) L 08/13/23 05:22
Hct 32.2 % (39.0-52.0) L 08/13/23 05:22
MCV 94.4 fL (80.0-94.0) H 08/13/23 05:22
MCH 30.8 pg (27.0-31.0) 08/13/23 05:22
MCHC 32.6 g/dL (33.0-37.0) L 08/13/23 05:22
RDW 12.7 % (11.5-14.5) 08/13/23 05:22
Plt Count 315 10^3/uL (130-400) 08/13/23 05:22
MPV 9.4 fL (7.4-10.4) 08/13/23 05:22
Abs Immat Gran (auto) 0.1 10^3/uL (0-0.05) H 08/13/23 05:22
Absolute Neuts (auto) 7.9 10^3/uL (1.4-6.5) H 08/13/23 05:22
Absolute Lymphs (auto) 1.0 10^3/uL (1.2-3.4) L 08/13/23 05:22
Absolute Monos (auto) 0.2 10^3/uL (0.1-0.6) 08/13/23 05:22
Absolute Eos (auto) 0.0 10^3/uL (0-0.7) 08/13/23 05:22
Absolute Basos (auto) 0.0 10^3/uL (0-0.2) 08/13/23 05:22
Immature Gran % 0.9 % (0-0.5) H 08/13/23 05:22
Neutrophils % 86.3 % (42.2-75.2) H 08/13/23 05:22
Lymphocytes % 10.5 % (20.5-51.1) L 08/13/23 05:22
Monocytes % 2.1 % (1.7-9.3) 08/13/23 05:22
Eosinophils % 0.1 % (0-6) 08/13/23 05:22
Basophils % 0.1 % (0-2) 08/13/23 05:22
Creatinine 0.8 mg/dL (0.7-1.3) 08/13/23 05:22
Vital Signs
Vital Signs
Temp Pulse Resp BP Pulse Ox
98.1 F 113 16 140/104 100
08/13/23 11:00 08/13/23 11:00 08/13/23 11:00 08/13/23 11:00 08/13/23 11:00
--- NOTE | 2023-08-13 15:46 | CM ---
Alert awake oriented patient who lives with his Marline who lives in a 2 story home with 1 step to enter and 10 steps to bed and bathroom. He is independent in all activities of daily living.No adaptive devices.
No VN hx /No SNF hx
Pharmacy [facility]
PCP DR Alexys Philippe
PLAN Home no anticipated needs
[2023-08-13] MEDS: LOVENOX 40 MG SC (18:35)
[2023-08-13] MEDS: BENADRYL 25 MG PO (22:57)
[2023-08-14 03:26] VITALS: BP 136/81
[2023-08-14 05:36] LABS: % Basophils 0.2 % (0-2); % Eosinophils 0.2 % (0-6); % Lymphocytes 19.5 % (20.5-51.1); % Monocytes 8.8 % (1.7-9.3); % Neutrophils 70.3 % (42.2-75.2); Absolute Immature Granulocytes 0.1 10^3/uL (0-0.05); Absolute Lymphocytes 2.5 10^3/uL (1.2-3.4); Absolute Monocytes 1.1 10^3/uL (0.1-0.6); Hematocrit 29.5 % (39.0-52.0); Hemoglobin 9.8 g/dL (13.0-18.0); Mean Corp Hgb Conc. 33.2 g/dL (33.0-37.0); Mean Corpuscular Hgb 30.7 pg (27.0-31.0); Mean Corpuscular Volume 92.5 fL (80.0-94.0); Mean Platelet Volume 8.9 fL (7.4-10.4); Nucleated Red Blood Cells % 0 % (-); Platelet Count 402 10^3/uL (130-400); Red Blood Cell Count 3.19 10^6/uL (4.70-6.10); Red Cell Dist. Width 13.1 % (11.5-14.5); White Blood Cell Count 12.7 10^3/uL (4.8-10.8)
[2023-08-14 06:00] VITALS: BMI 28.4
[2023-08-14 06:06] LABS: ALT (SGPT) 52 U/L (0-50); AST (SGOT) 35 U/L (17-59); Albumin 3.6 g/dl (3.5-5.0); Alkaline Phosphatase 100 U/L (38-126); Blood Urea Nitrogen 18 mg/dl (9-20); Calcium 10.2 mg/dl (8.4-10.2); Carbon Dioxide 26 mmol/L (22-30); Chloride 105 mmol/L (98-107); Estimated Creatinine Clearance 120 ml/min; Glucose 111 mg/dl (70-99); Potassium 4.8 mmol/L (3.5-5.1); Sodium 139 mmol/L (135-145); Total Bilirubin 0.8 mg/dl (0.2-1.3); Total Protein 6.6 g/dl (6.3-8.2); eGFR > 60.00
[2023-08-14 07:35] VITALS: BP 119/72
[2023-08-14] MEDS: DUONEB 3 ML INH ×2 (08:17→15:27)
[2023-08-14] MEDS: LIPITOR 40 MG PO (08:27)
[2023-08-14] MEDS: COZAAR 50 MG PO (08:27)
[2023-08-14] MEDS: ORETIC 12.5 MG PO (08:27)
[2023-08-14] MEDS: DELTASONE 50 MG PO (08:27)
[2023-08-14] MEDS: MUCINEX 1200 MG PO ×2 (08:27→19:39)
[2023-08-14] MEDS: FEOSOL 325 MG PO (08:28)
[2023-08-14] MEDS: ZITHROMAX INFUSION 250 IV (08:28)
[2023-08-14] MEDS: STERILE WATER FOR INJECTION 10 ML IV (08:31)
[2023-08-14] MEDS: ROCEPHIN 1000 MG IV (08:31)
[2023-08-14] MEDS: ROXICODONE 10 MG PO ×4 (08:41→22:09)
--- NOTE | 2023-08-14 10:19 | W.PN.HOSP.TC ---
Today's Communication/Plan
-
Monitor vital signs and see plan
Continue with antibiotics
On prednisone, nebs
Oncology and pulmonary following
Assessment / Plan
Assessment / Plan
General: Well Nourished and No Apparent Distress
Respiratory: Clear and Non Labored Respirations
Cardiac: S1/S2 and Regular Rhythm
GI: Soft, Non Tender and Non Distended
Musculoskeletal: No Edema
Neuro: Awake, Alert and Oriented
Psych: Calm and Intact Judgment/Insight
Sepsis (fever, tachycardia,tachypnea) suspect secondary to pneumonia
Pro-Ike elevated
Continue with rocephin,azithromycin
CT chest with large recurrent lung cancer and perihilar right lung involving the right upper, middle and lower lobe with encasement of the proximal bronchi and pulmonary arteries. Oncology following. Patient follows up with Dr. Morrow.
Per patient and family he has come pleated his cancer treatment twice around 6 years ago. Appears to have gotten radiation and chemo
pulmonary following; spoke with Dr Ceballos. Will need bronch or EBUS but likely will schedule it in coming weeks outpatient
given wheezing and sob,pulmonary started steroids. does have hx of eosinophilia
duonebs prn
mild hyperkalmeia
Subdural, 08/12, resolved
History of hypertension
Continue HCTZ, losartan
mild hypercalcemia
monitor
Hyperlipidemia
DVT prophylaxis
Lovenox
Full code
Anticipated Discharge: 24 - 48 hours
Subjective/Interval History
-
Date of Service: August 14, 2023
Denies chest pain
Objective Data
-
Labs:
Laboratory Results
08/14/23
04:48
WBC 12.7 H
Hgb 9.8 L
Hct 29.5 L
Plt Count 402 H D
Sodium 139
Potassium 4.8
Chloride 105
Carbon Dioxide 26
BUN 18
Creatinine 0.8
Glucose 111 H
Calcium 10.2
Total Bilirubin 0.8
AST 35
ALT 52 H
Alkaline Phosphatase 100
Vital Signs:
Vital Signs
Temp Pulse Resp BP Pulse Ox
98.5 F 77 16 119/72 96
08/14/23 07:35 08/14/23 08:18 08/14/23 08:18 08/14/23 07:35 08/14/23 08:45
I&O
08/13/23 08/14/23 08/15/23
06:59 06:59 06:59
Intake Total 480 / 480 480 / 480
Balance 480 / 480 480 / 480
--- NOTE | 2023-08-14 10:20 | W.PN.PUL.V3 ---
Today's Communication / Plan
-
Wean oxygen
Decrease steroids
Continue nebulizers
Continue antibiotics
Reviewed observational approach versus more aggressive early biopsy with patient-he would prefer the latter-will try to arrange in the next couple weeks once medically stabilized
Assessment
-
Assessment: 52-year-old male with a past medical history of lung cancer (managed by [facility]) who presents with coughing and chills. Patient had a fever of 101.7 �F in triage, with BP 162/90, saturating 94% on room air, tachypneic to 22 breaths/min
and tachycardic to 128 bpm. Labs showed leukocytosis to 11.8, anemia to 10.3, slightly elevated ALT of 55, negative troponin of <0.012, slightly elevated procalcitonin of 0.51 and a negative COVID antigen. Blood cultures were collected. CXR
obtained showing a large dense spiculated opacity in the right hilum similar in size but increased in density since August 2021. CTA of the chest was done showing a right perihilar dense consolidation encasing the pulmonary artery as well as
encasing/narrowing the proximal right middle lobe bronchus and right lower lobe bronchus. There are linear bands of scarring seen extending peripherally from the consolidation towards the pleural surface. There is also been interval enlargement of
a 6 mm right lower lobe pulmonary nodule (previously measured 4mm on CTA chest from 2017). Pulmonary service now consulted for additional management/recommendations.
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
Impression:
#Right perihilar mass measuring 14.2 x 7.2 x 7.2 cm suspicious for recurrent lung cancer, however he says he has had multiple CT chest imaging done either at [facility] or [facility]
-This right perihilar mass is encasing the proximal right middle lobe bronchus/right lower lobe bronchus as well as the right main pulmonary artery
#History of right-sided perihilar small cell lung cancer s/p chemo/radiation (completed in 2018) with postradiation changes seen on CT chest from January 27, 2017; Hx of whole brain radiation
#Leukocytosis
#Anemia
#Former tobacco use disorder
# History of eosinophilia (seen on prior CBC from 10/2016) - perhaps this is due to undiagnosed asthma as he has albuterol at home that he sometimes needs to use several times a year when ill
Plan:
Pulmonary status slowly improving
Continue supplemental oxygen as needed-attempt to wean to room air
Increase activity.
Nebulizers if needed-currently not bronchospastic.
Mucolytic's as needed.
Steroid taper-currently on prednisone 50 mg-can reduce to 40 mg with slow taper
Radiographs reviewed-significant increase in right hilar abnormalities
Discs from [facility] for direct comparison pending-by report hilar mass significantly increased in size
Reviewed with Dr. Avery from oncology-observational approach versus more aggressive biopsy
Reviewed at length with patient-told enlarging hilar abnormality could be malignancy or infection related and reviewed 2 options-observational approach with reevaluation in 4-6 weeks or more aggressive biopsy in the next couple weeks-he would
strongly prefer the latter
I will reach out to Dr. Méndez from our group to see if biopsy feasible and when
Cultures reviewed-unrevealing
Continue treatment for bacterial pneumonia-ceftriaxone and azithromycin
DVT prophylaxis-on Lovenox
Nutrition
Increase activity.
Outpatient pulmonary follow-up
Data:
CTA Chest 08-12-2023:
1. LARGE 14 cm RECURRENT LUNG CANCER in the PERIHILAR RIGHT LUNG involving the right upper, middle, and lower lobes with encasement of the proximal bronchi and pulmonary arteries. Progressive radiation pneumonitis or pneumonia are considered much
less likely etiologies for the extensive perihilar consolidation.
2. Small pulmonary metastases in the right lower lobe which have increased in size.
3. Mild scarring throughout the peripheral right lung.
4. Severe scarring in the upper pole of the left kidney.
Subjective Data
-
Date of Service:
Date of Service: August 14, 2023
Chief Complaint: Pulmonary Follow Up and Dyspnea Follow Up
Subjective:
Feels a little better, mild cough, nonproductive, no chest pain, abdominal pain, and mild dyspnea on exertion
Review of Systems
General: Other (Per HPI)
Objective Data
Data Reviewed
Vital Signs / I&O:
Vital Signs
Temp Pulse Resp BP Pulse Ox
98.5 F 77 16 119/72 96
08/14/23 07:35 08/14/23 08:18 08/14/23 08:18 08/14/23 07:35 08/14/23 08:45
Intake and Output
08/13/23 08/14/23 08/15/23
06:59 06:59 06:59
Intake Total 480 / 480 480 / 480
Balance 480 / 480 480 / 480
SaO2: 96
Physical Exam
General: Respiratory Distress (n) and Comfortable
HEENT: Normocephalic, Anicteric and Moist Mucous Membranes
Cardiovascular: Regular Rhythm and Murmur (n)
Respiratory: Wheeze (n), Crackles (n), Rhonchi (n), Non-Labored Respirations and Accessory Resp Muscle Use (n)
GI: Soft, Non Distended and Non Tender
Neurology: Awake and No Motor Deficits
Skin: Warm, Good Color, Cyanosis (n) and Jaundice (n)
Labs/Micro/Reports
Lab Data
08/14/23 04:48
08/14/23 04:48
Microbiology
08/13/23 09:25 Sputum Respiratory Culture - Preliminary
Usual Respiratory Kirstin
08/13/23 09:25 Sputum Gram Stain - Preliminary
08/12/23 06:09 Blood/Venous Blood Culture - Preliminary
No Growth in 48 hours- Final report to follow
08/12/23 06:09 Blood/Venous Blood Culture - Preliminary
No Growth in 48 hours- Final report to follow
08/12/23 15:07 Urine Legionella Urinary Antigen - Final
Negative for Legionella pneumophila Serogroup 1 antigen.
A negative result does not rule out the possiblity of
Legionella infection due to other serogroups or species of
Legionella. Clinical correlation is recommended.
08/12/23 15:07 Urine Streptococcus pneumoniae Antigen (M - Final
Negative for Streptococcus pneumoniae antigen.
A negative result does not exclude infection with
Streptococcus pneumoniae. Clinical correlation is
recommended.
08/12/23 06:08 Nasal Swab Influenza Types A & B (BRINDA) - Final
Negative for Influenza A & B, NAAT
Negative results must be combined with clinical observations
and patient history.
Nucleic Acid Amplification test (NAAT)performed on the
[employer] platform.
[2023-08-14 11:06] VITALS: BP 135/82
[2023-08-14] MEDS: DUONEB INH (11:26)
--- NOTE | 2023-08-14 11:32 | W.PN.UPDATE ---
Update Note
Progress Note Update
I have reviewed the case with Dr Méndez-bronchoscopic biopsy is tentatively scheduled for 08/23/2023
I have asked the office to contact him for appointment next week-Sunday through Sunday with breathing tests prior to bronchoscopy
[2023-08-14 15:01] VITALS: BP 114/70
[2023-08-14] MEDS: LOVENOX 40 MG SC (18:10)
[2023-08-14 19:58] VITALS: BP 111/79
[2023-08-14] MEDS: BENADRYL 25 MG PO (22:57)
[2023-08-14 23:40] VITALS: BP 132/81
[2023-08-15 03:01] VITALS: BP 129/78
[2023-08-15] MEDS: ROXICODONE 10 MG PO ×2 (05:21→10:42)
[2023-08-15 05:38] LABS: % Basophils 0.2 % (0-2); % Eosinophils 0.5 % (0-6); % Immature Granulocytes 1.9 % (0-0.5); % Lymphocytes 24.3 % (20.5-51.1); % Monocytes 8.4 % (1.7-9.3); % Neutrophils 64.7 % (42.2-75.2); Absolute Eosinophils 0.1 10^3/uL (0-0.7); Absolute Immature Granulocytes 0.2 10^3/uL (0-0.05); Hematocrit 31.6 % (39.0-52.0); Hemoglobin 10.4 g/dL (13.0-18.0); Mean Corp Hgb Conc. 32.9 g/dL (33.0-37.0); Mean Platelet Volume 8.6 fL (7.4-10.4); Nucleated Red Blood Cells % 0 % (-); Platelet Count 469 10^3/uL (130-400); Red Blood Cell Count 3.36 10^6/uL (4.70-6.10); White Blood Cell Count 12.3 10^3/uL (4.8-10.8)
[2023-08-15 06:00] VITALS: BMI 28.3
[2023-08-15 06:03] LABS: ALT (SGPT) 62 U/L (0-50); AST (SGOT) 41 U/L (17-59); Albumin 3.6 g/dl (3.5-5.0); Alkaline Phosphatase 100 U/L (38-126); Blood Urea Nitrogen 23 mg/dl (9-20); Calcium 10.6 mg/dl (8.4-10.2); Carbon Dioxide 24 mmol/L (22-30); Chloride 104 mmol/L (98-107); Estimated Creatinine Clearance 96 ml/min; Glucose 107 mg/dl (70-99); Potassium 4.9 mmol/L (3.5-5.1); Sodium 137 mmol/L (135-145); Total Bilirubin 0.6 mg/dl (0.2-1.3); Total Protein 6.6 g/dl (6.3-8.2); eGFR > 60.00
--- NOTE | 2023-08-15 07:02 | W.PN.ONC2 ---
Today's Communication / Plan
-
Await Bronch and pulm w/u. Will stand by. Follow up with oncology if new (or recurrent) lung ca confirmed.
Impression
Impression
Right perihilar mass measuring 14.2 x 7.2 x 7.2 cm suspicious for primary lung cancer
History of limited stage small cell lung cancer (also right nestor-hilar), status post chemoXRT (cisplatin and PIPE COREMAKER-16) followed by prophylactic cranial irradiation (2018)
Known radiation fibrosis of the right lung
Plan
Plan
Possible new primary bronchogenic malignancy as the new CT done here is quite different from the one done 1 year ago at [facility].
Diff Dx new maligancy vs. infection/inflammation. It would be very unusual for small cell carcinoma to recur this late.
Pulmonary is planning on getting an outpatient bronchoscopy 08/22 per notes/discussion with patient.
Oncology will stand by as right now no definitive evidence of active malignancy.
Outpt PET scan could be a useful tool as well either for staging (if bronch biopsy +) or for evaluation of the mass if the bronch non-diagnostic.
Will stand by.
Subjective/Objective
Chief Complaint
ACS Heme Onc
Subjective
No complaints.
Vital Signs:
Vital Signs
Temp Pulse Resp BP Pulse Ox
98.7 F 85 20 129/78 99
08/15/23 03:01 08/15/23 03:01 08/15/23 03:01 08/15/23 03:01 08/15/23 03:01
Lab Results:
Laboratory Data
WBC 12.3 10^3/uL (4.8-10.8) H 08/15/23 04:58
Hgb 10.4 g/dL (13.0-18.0) L 08/15/23 04:58
Plt Count 469 10^3/uL (130-400) H 08/15/23 04:58
eGFR > 60.00 08/15/23 04:58
Physical Exam
HEENT: No Jaundice
Cardiology: S1 and S2
Pulmonary: Clear
GI: Soft
Extremities: No C/C/E
[2023-08-15] MEDS: MUCINEX 1200 MG PO (07:24)
[2023-08-15] MEDS: LIPITOR 40 MG PO (07:24)
[2023-08-15] MEDS: COZAAR 50 MG PO (07:24)
[2023-08-15] MEDS: ORETIC 12.5 MG PO (07:24)
[2023-08-15] MEDS: FEOSOL 325 MG PO (07:24)
[2023-08-15] MEDS: DELTASONE 40 MG PO (07:25)
[2023-08-15 07:35] VITALS: BP 131/85
--- NOTE | 2023-08-15 09:24 | W.PN.PUL.V3 ---
Today's Communication / Plan
-
Wean oxygen
Increase activity
Prednisone taper
Nebulizers
Outpatient pulmonary follow-up including bronchoscopy
Assessment
-
Assessment: 52-year-old male with a past medical history of lung cancer (managed by [facility]) who presents with coughing and chills. Patient had a fever of 101.7 �F in triage, with BP 162/90, saturating 94% on room air, tachypneic to 22 breaths/min
and tachycardic to 128 bpm. Labs showed leukocytosis to 11.8, anemia to 10.3, slightly elevated ALT of 55, negative troponin of <0.012, slightly elevated procalcitonin of 0.51 and a negative COVID antigen. Blood cultures were collected. CXR
obtained showing a large dense spiculated opacity in the right hilum similar in size but increased in density since August 2021. CTA of the chest was done showing a right perihilar dense consolidation encasing the pulmonary artery as well as
encasing/narrowing the proximal right middle lobe bronchus and right lower lobe bronchus. There are linear bands of scarring seen extending peripherally from the consolidation towards the pleural surface. There is also been interval enlargement of
a 6 mm right lower lobe pulmonary nodule (previously measured 4mm on CTA chest from 2017). Pulmonary service now consulted for additional management/recommendations.
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
Impression:
#Right perihilar mass measuring 14.2 x 7.2 x 7.2 cm suspicious for recurrent lung cancer, however he says he has had multiple CT chest imaging done either at [facility] or [facility]
-This right perihilar mass is encasing the proximal right middle lobe bronchus/right lower lobe bronchus as well as the right main pulmonary artery
#History of right-sided perihilar small cell lung cancer s/p chemo/radiation (completed in 2017) with postradiation changes seen on CT chest from January 27, 2017; Hx of whole brain radiation
#Leukocytosis
#Anemia
#Former tobacco use disorder
# History of eosinophilia (seen on prior CBC from 10/2016) - perhaps this is due to undiagnosed asthma as he has albuterol at home that he sometimes needs to use several times a year when ill
Plan:
Pulmonary status improving
Continue supplemental oxygen as needed-attempt to wean to room air
Increase activity.
Nebulizers if needed-currently not bronchospastic.
Mucolytic's as needed.
Steroid taper-currently on prednisone 50 mg-can reduce to 40 mg with slow taper
Radiographs reviewed-significant increase in right hilar abnormalities
Discs from [facility] for direct comparison pending-by report hilar mass significantly increased in size
Reviewed with Dr. Avery from oncology-observational approach versus more aggressive biopsy
Reviewed at length with patient-told enlarging hilar abnormality could be malignancy or infection related and reviewed 2 options-observational approach with reevaluation in 4-6 weeks or more aggressive biopsy in the next couple weeks-he would
strongly prefer the latter
Outpatient bronchoscopy-robotic recommended-tentatively set up for 08/23/[address] Méndez
Will need to be seen in the outpatient office next week including breathing tests
Cultures reviewed-unrevealing
Continue treatment for bacterial pneumonia-ceftriaxone and azithromycin
DVT prophylaxis-on Lovenox
Nutrition
Increase activity.
Outpatient pulmonary follow-up
Data:
CTA Chest 08-12-2023:
1. LARGE 14 cm RECURRENT LUNG CANCER in the PERIHILAR RIGHT LUNG involving the right upper, middle, and lower lobes with encasement of the proximal bronchi and pulmonary arteries. Progressive radiation pneumonitis or pneumonia are considered much
less likely etiologies for the extensive perihilar consolidation.
2. Small pulmonary metastases in the right lower lobe which have increased in size.
3. Mild scarring throughout the peripheral right lung.
4. Severe scarring in the upper pole of the left kidney.
Subjective Data
-
Date of Service:
Date of Service: August 15, 2023
Chief Complaint: Pulmonary Follow Up and Dyspnea Follow Up
Subjective:
Feels better, less short of breath, has some mild dyspnea on exertion, no chest pain or productive cough or abdominal pain
Review of Systems
General: Other (Per HPI)
Objective Data
Data Reviewed
Vital Signs / I&O:
Vital Signs
Temp Pulse Resp BP Pulse Ox
98.6 F 86 18 131/85 100
08/15/23 07:35 08/15/23 07:35 08/15/23 07:35 08/15/23 07:35 08/15/23 07:35
Intake and Output
08/14/23 08/15/23 08/16/23
06:59 06:59 06:59
Intake Total 480 / 480 1620 / 1620
Balance 480 / 480 1620 / 1620
SaO2: 100
Physical Exam
General: Respiratory Distress (n) and Comfortable
HEENT: Normocephalic, Anicteric and Moist Mucous Membranes
Cardiovascular: Regular Rhythm and Murmur (n)
Respiratory: Wheeze (n), Crackles (n), Rhonchi (n), Non-Labored Respirations and Accessory Resp Muscle Use (n)
GI: Soft, Non Distended and Non Tender
Neurology: Awake and No Motor Deficits
Skin: Warm, Good Color, Cyanosis (n) and Jaundice (n)
Labs/Micro/Reports
Lab Data
08/15/23 04:58
08/15/23 04:58
Microbiology
08/12/23 06:09 Blood/Venous Blood Culture - Preliminary
No Growth in 72 hours- Final report to follow
08/12/23 06:09 Blood/Venous Blood Culture - Preliminary
No Growth in 72 hours- Final report to follow
08/13/23 09:25 Sputum Respiratory Culture - Preliminary
Usual Respiratory Kirstin
08/13/23 09:25 Sputum Gram Stain - Preliminary
08/12/23 15:07 Urine Legionella Urinary Antigen - Final
Negative for Legionella pneumophila Serogroup 1 antigen.
A negative result does not rule out the possiblity of
Legionella infection due to other serogroups or species of
Legionella. Clinical correlation is recommended.
08/12/23 15:07 Urine Streptococcus pneumoniae Antigen (M - Final
Negative for Streptococcus pneumoniae antigen.
A negative result does not exclude infection with
Streptococcus pneumoniae. Clinical correlation is
recommended.
08/12/23 06:08 Nasal Swab Influenza Types A & B (BRINDA) - Final
Negative for Influenza A & B, NAAT
Negative results must be combined with clinical observations
and patient history.
Nucleic Acid Amplification test (NAAT)performed on the
[employer] platform.
[2023-08-15] MEDS: ZITHROMAX INFUSION 250 IV (10:05)
[2023-08-15] MEDS: STERILE WATER FOR INJECTION 10 ML IV (10:05)
[2023-08-15] MEDS: ROCEPHIN 1000 MG IV (10:06)
[2023-08-15] MEDS: TYLENOL 325 MG PO (10:42)
[2023-08-15 11:02] VITALS: BP 140/78
[2023-08-15 11:50] VITALS: BP 140/78
--- NOTE | 2023-08-15 11:59 | W.PN.HOSP.TC ---
Addendum entered and electronically signed by Marin Humphrey MD 08/15/23 13:27:
Discharge on 1 further day of azithromycin, 6 further days of cefdinir, and a prednisone taper with close outpatient follow-up.
Total time spent on d/c = 34 min. This included today's physical exam, progress note, review of laboratory and diagnostic data, preparation of discharge documents and prescriptions, and discussions about the pt's hospital course and discharge plan
with the patient and other faculty i on call medical assistant involved in the patient's care.
Original Note:
Today's Communication/Plan
-
Hopefully d/c later today after ID eval.
Assessment / Plan
Assessment / Plan
Gen: NAD, AAOx3.
Eyes: EOMI, PERRLA, no scleral icterus.
Neck: supple.
CV: RRR, +S1/S2, no m/r/g.
Resp: CTAB, no rales, wheezes, or rhonchi.
Abd: +BS, soft, NT, ND
Skin: No rashes.
Neuro: CN 2-12 intact, non-focal.
Psych: Normal mood and affect.
CT chest 08/12/23:
1. LARGE 14 cm RECURRENT LUNG CANCER in the PERIHILAR RIGHT LUNG involving the right upper, middle, and lower lobes with encasement of the proximal bronchi and pulmonary arteries. Progressive radiation pneumonitis or pneumonia are considered much
less likely etiologies for the extensive perihilar consolidation.
2. Small pulmonary metastases in the right lower lobe which have increased in size.
3. Mild scarring throughout the peripheral right lung.
4. Severe scarring in the upper pole of the left kidney.
Sepsis due to pneumonia:
-CT chest above
-Procalcitonin noted but unreliable in the setting of malignancy
-Strep and Legionella antigens negative, respiratory culture with usual respiratory bam, Flu/COVID NEG. BCxs NGTD.
-currently on Rocephin/Azithro
-pulm/ONC following, will need bronch or EBUS after d/c (scheduled 08/23/23)
-saturating well on RA
-c/s ID for opinion on abx
Other problems:
Mild hyperkalemia, resolved
Essential hypertension: Continue HCTZ, losartan
Mild hypercalcemia
Hyperlipidemia
FULL/Lovenox
Anticipated Discharge: Within 24 hours
Subjective/Interval History
-
Date of Service: August 15, 2023
Denies CP/SOB.
Objective Data
-
Labs:
Laboratory Results
08/15/23
04:58
WBC 12.3 H
Hgb 10.4 L
Hct 31.6 L
Plt Count 469 H
Sodium 137
Potassium 4.9
Chloride 104
Carbon Dioxide 24
BUN 23 H
Creatinine 1.0
Glucose 107 H
Calcium 10.6 H
Total Bilirubin 0.6
AST 41
ALT 62 H
Alkaline Phosphatase 100
Vital Signs:
Vital Signs
Temp Pulse Resp BP Pulse Ox
98.9 F 89 18 140/78 99
08/15/23 11:02 08/15/23 11:02 08/15/23 11:02 08/15/23 11:02 08/15/23 11:02
I&O
08/14/23 08/15/23 08/16/23
06:59 06:59 06:59
Intake Total 480 / 480 1620 / 1620
Balance 480 / 480 1620 / 1620
--- NOTE | 2023-08-15 13:27 | W.DCSUMMARY ---
Discharge Summary
Discharge Data
Date of Admission: 08/12/23
Date of Discharge: 08/15/23
-
Pending Results: No
Hospital Course
Primary diagnoses:
Sepsis due to pneumonia
Recurrent right-sided lung cancer
Secondary diagnoses:
Mild hyperkalemia
Essential hypertension
Mild hypercalcemia
Hyperlipidemia
Consultants:
Pulmonary
Imaging:
CT chest 08/12/23:
1. LARGE 14 cm RECURRENT LUNG CANCER in the PERIHILAR RIGHT LUNG involving the right upper, middle, and lower lobes with encasement of the proximal bronchi and pulmonary arteries. Progressive radiation pneumonitis or pneumonia are considered much
less likely etiologies for the extensive perihilar consolidation.
2. Small pulmonary metastases in the right lower lobe which have increased in size.
3. Mild scarring throughout the peripheral right lung.
4. Severe scarring in the upper pole of the left kidney.
Hospital course: 52-year-old male who presented with a chief complaint of fevers outlined in the H&P done on admission. He was admitted for sepsis due to pneumonia. Imaging above. He had an elevated procalcitonin but this is unreliable in the
setting of malignancy. Patient was treated with IV Rocephin and azithromycin. He was seen by pulmonary and started on prednisone. He was seen by oncology. Strep and Legionella antigens negative, respiratory culture with usual respiratory bam,
Flu/COVID NEG. BCxs NGTD. After discharge the patient will need bronchoscopy or EBUS after (scheduled 08/23/23). He was saturating well on room air throughout hospitalization. He was discharged on 1 further day of azithromycin, 6 further days of
cefdinir, and a prednisone taper. This was discussed with pulmonary on the day of discharge.
Discharge Plan
-
Patient Disposition: Home (Routine Discharge)
Discharge Diagnosis/Procedures: Sepsis due to pneumonia
Condition: Good
Diet: As tolerated
Activity: No restrictions
Driving Restrictions: As prior to admission
Blood Work: BMP and CBC in 1 week, prescription from PCP
Referrals:
Juan Juárez MD [Active] - in one week
(Pulmonary follow up:
Obtain full PFTs given Hx of eosinophilia with concern for undiagnosed asthma; may have COPD as well given Hx of tobacco use
Outpatient bronchoscopy/robotic with Dr. Méndez Tentatively scheduled for 08/23/2023)
Alexys Philippe MD [Family Provider] - in less than 1 week
Prescriptions:
New
azithromycin 500 mg tablet
500 mg PO DAILY Qty: 1 0RF
cefdinir 300 mg capsule
300 mg PO BID Qty: 12 0RF
prednisone 10 mg tablet
10 mg PO DIRECTED Qty: 30 0RF
Rx Instructions:
Taper: 40mg daily x 3 days, 30mg daily x 3 days, 20mg daily x 3 days, 10mg daily x 3 days
Continued
losartan 50 mg Tablet
50 mg PO DAILY
atorvastatin [Lipitor] 40 mg Tablet
40 mg PO DAILY
tizanidine 2 mg Tablet
2 mg PO HSPRN PRN (Reason: spasms)
oxycodone-acetaminophen 10-325 mg Tablet
1 tab PO Q4HPRN PRN (Reason: severe pain)
ferrous sulfate 325 mg (65 mg iron) Tablet
325 mg PO DAILY
Tylenol PM Extra Strength 25-500 mg Tablet
1 tab PO HSPRN PRN (Reason: sleep)
hydrochlorothiazide 12.5 mg Tablet
12.5 mg PO DAILY
Discharge Orders:
Discharge Patient (As Directed); Ordered 08/15/23
Ordered By: Marin Humphrey
Discharge Date and Time
Print Language: SLOVAK
--- NOTE | 2023-08-15 13:41 | CM ---
MD entered order for discharge .
Pt is in agreement with dc.
Radha here to drive him home.
Offered Vn he declined need .
PLAN: Home with no needs
== END 2023-08-15 15:05 | disposition home or self-care (01) | DRG 871 ==
LOC: 4 EAST ACU 11:30
PROVIDERS: Emergency Medicine; ADMITTING PHYSICIAN Internal Medicine; ATTENDING PHYSICIAN Internal Medicine; EMERGENCY PHYSICIAN Emergency Medicine; FAMILY PHYSICIAN Family Medicine; OTHER PHYSICIAN Internal Medicine Critical Care Medicine; OTHER PHYSICIAN Internal Medicine Hematology & Oncology
DX: A41.9 Sepsis, unspecified organism (principal); J18.9 Pneumonia, unspecified organism; C34.81 Malignant neoplasm of overlapping sites of right bronchus and lung; D64.9 Anemia, unspecified; I10 Essential (primary) hypertension; E83.52 Hypercalcemia; E87.5 Hyperkalemia; E78.5 Hyperlipidemia, unspecified; R06.2 Wheezing; R06.82 Tachypnea, not elsewhere classified; R74.01 Elevation of levels of liver transaminase levels; R79.89 Other specified abnormal findings of blood chemistry; Z79.899 Other long term (current) drug therapy; Z87.891 Personal history of nicotine dependence; Z86.711 Personal history of pulmonary embolism; Z92.3 Personal history of irradiation; Z92.21 Personal history of antineoplastic chemotherapy; Z85.118 Personal history of other malignant neoplasm of bronchus and lung; Z11.52 Encounter for screening for COVID-19
CPT/HCPCS: 71046; 71275; 80053; 83605; 84145; 84484; 85025; 87040; 87070; 87205; 87449; 87502; 87811; 87899; 93005; 94640; 96361; 96365; 96375; 99285; Q9967

== ENCOUNTER 2023-09-03 17:00 | Inpatient (IN) | payer MEDICAID, SELFPAY ==
[2023-08-24 13:27] VITALS: BMI 29.8
[2023-08-24 14:24] LABS: APTT 24.9 Sec (23.4-35.0); INR 0.93; PT 12.2 Sec (11.4-14.6)
[2023-09-03] VITALS (23 sets, daily range): BP systolic 102–160; BP diastolic 74–99; BMI 30.8
--- NOTE | 2023-09-03 10:38 | W.PN.UPDATE ---
Update Note
Progress Note Update
Called by radiology regarding small right apical PTX s/p bronchoscopy this AM. Went to see pt immediately who was in NAD. He was breathing comfortably on room air. Decision made to place onto NRB O2 therapy at 15L/min to help resorb PTX with
nitrogen washout. I explained this to the bedside RN, to the patient as well as his . All questions were answered.
If repeat CXR in 2 hours is stable then he can be discharged with repeat CXR as an outpatient in 1-2 days to assure PTX is stable and hopefully is resolved. I will continue to closely monitor the situation.
--- NOTE | 2023-09-03 12:48 | HPS.HSE ---
Addendum entered and electronically signed by Liam Hayes MD 09/03/23 14:41:
52-year-old male with a past medical history of hypertension, hyperlipidemia, obstructive sleep apnea, former smoker, lung radiation fibrosis, and limited stage small cell lung cancer s/p XRT/chemotherapy was found to have a right-sided iatrogenic
pneumothorax status post robotic bronchoscopy with biopsy today for his new right perihilar lung mass. Patient denies chest pain, shortness of breath. He complains of being hungry. He will be seen in conjunction with pulmonology and
interventional radiology for chest tube management of his right-sided pneumothorax.
He states he has not taken any of his medications today. Will order his blood pressure and other home medications.
I have personally seen and examined the patient, and agree with the plan of care as documented by MORA Harrington.
Advance care planning discussed, patient is a full code.
All other issues as outlined by the advanced care practitioner.
Original Note:
Family Physician
-
Family Physician: rTu Ngo
Chief Complaint
-
pneumothorax
History of Present Illness
52 year old with PMH for lung ca, htn, hld getting admitted with pneumothorax s/p bronchoscopy. patient was admitted her with pneumonia in August. patient was scheduled to get bronchoscopy today due to Right perihilar mass measuring 14.2 x 7.2 x 7.2
cm suspicious for recurrent lung cancer. at present patient denied chest pain, short of breath, shoulder pain. Patient denied any headache, dizziness, syncopal episode. Patient denied fever, chills. Patient denied abdominal pain, nausea,
vomiting, diarrhea. Patient denied dysuria hematuria
Medical History
Past Medical History
Past Medical History: Reports Other
Additional Past Medical History:
Lung cancer
hypertension
Hyperlipidemia
Past Surgical History: Reports Other
Additional Past Surgical History:
Rotator cuff repair
Right chest report
Social History
Tobacco: Smoker (Marijuana daily)
Alcohol: None
Drug: None
Living: With Family
Family History
Family History: Not pertinent
Allergies / Home Medications
Allergies reflects when Allergies were last updated in [facility].
Home Medications with original date entered in [facility]
Allergy/Medication List:
Allergies
Allergy/AdvReac Type Severity Reaction Status Date / Time
No Known Allergies Allergy Verified 09/03/23 06:53
Home Medications
atorvastatin 40 mg tablet (Lipitor) 40 mg PO DAILY High Cholesterol 08/12/23
diphenhydramine 25 mg-acetaminophen 500 mg tablet (Tylenol PM Extra Strength) 1 tab PO HSPRN PRN sleep 08/12/23
ferrous sulfate 325 mg (65 mg iron) tablet 325 mg PO DAILY Supplement 08/12/23
hydrochlorothiazide 12.5 mg tablet 12.5 mg PO DAILY Blood Pressure/edema 08/12/23
losartan 50 mg tablet 50 mg PO DAILY Blood Pressure 08/12/23
oxycodone-acetaminophen 10 mg-325 mg tablet 1 tab PO Q4HPRN PRN severe pain 08/12/23
tizanidine 2 mg tablet 2 mg PO HSPRN PRN spasms 08/12/23
Medical Cannibus 1 dose PO PRN PRN sleep, anxiety, pain 08/29/23
Review of Systems
-
Constitutional: Reports No Symptoms
EENT: Reports No Symptoms
Respiratory: Reports No Symptoms
Cardiac: Reports No Symptoms
Abdomen/GI: Reports No Symptoms
: Reports No Symptoms
Musculoskeletal: Reports No Symptoms
Skin: Reports No Symptoms
Neurological: Reports No Symptoms
Endocrine: Reports No Symptoms
Hematologic/Lymphatic: Reports No Symptoms
Psych: Reports No Symptoms
Physical Exam
Vital Signs
Vital Signs
Temp Pulse Resp BP Pulse Ox
98.0 F 90 16 123/90 100
09/03/23 12:00 09/03/23 12:00 09/03/23 12:00 09/03/23 12:00 09/03/23 12:00
Physical Exam
General: Well Developed, Well Nourished and No Apparent Distress
HEENT: NormoCephalic, Moist mucous membranes and Atraumatic
Respiratory: Clear
Cardiac: S1/S2 and Regular Rhythm; No Murmur or Rub
GI: Soft, Non Tender, Non Distended and Normal Bowel Sounds; No Organomegaly
Rectal: Deferred by Provider
Musculoskeletal: No Clubbing, No Cyanosis and No Edema
Skin: No Rash
Neuro: AO x 3 and Nonfocal/grossly intact
Psych: Calm
Laboratory Results
-
Laboratory Results
PT 12.2 Sec (11.4-14.6) 08/24/23 13:03
INR 0.93 08/24/23 13:03
APTT 24.9 Sec (23.4-35.0) 08/24/23 13:03
Impression/Plan
-
#right sided pneumothorax s/p bronchoscopy
-IR to place chest tube
-pulmonology following patient
-Dilaudid prn for pain
-consider supplemental oxygen to keep sat >92
-wean as tolerated
-encourage incentive spirometer
#hxt of lung ca
-last chemo/radiation 5-6 years ago
-follow[facility]
#iron deficiency anemia
-ferrous sulfate continued
#Essential hypertension: Continue HCTZ, losartan
#HLD
-statin
#DVT prophylaxis
-scd
#CODE status
-full code
--- NOTE | 2023-09-03 13:07 | CON.PUL ---
Consultation
Consultation Request
Date/Time Consultation Requested: 09/03/2023 - 125
Date/Time Consultation Performed: 09/03/2023 - 1303
Requesting Provider: Dr. Juárez
Performing Provider: Dr. Juárez
Reason for Consultation: Right sided PTX post-op
Medical History
-
Chief Complaint: PTX s/p robotic bronchoscopy
History of Present Illness:
52-year-old male with a past medical history of limited stage small cell lung cancer s/p XRT/chemotherapy, history of right lung radiation fibrosis, history of KENYATTA, former tobacco use disorder (26-[id number]-kbjr history), and recent hospitalization from
08/1108/15/2023 due to pneumonia treated with antibiotics as well as prednisone taper due to wheezing on exam during that time, who now presents for elective outpatient robotic bronchoscopy which was complicated by right-sided pneumothorax. Patient
had a 14. 2 x 7.2 x 7.2 cm right perihilar mass seen on CTA chest from 08/12/2023 and was seen in our office on 08/21/2023 Dr. Wallace. Patient continued with a subacute cough although his symptoms had markedly improved. PFTs at that time showed mild as
moderate restriction with TLC 67%, FVC: 79%. Patient presented today for robotic bronchoscopy where he underwent RML�medial segmental bronchus brushing, TBNA, TBBx with BAL, as well as brushing in the RUL�posterior segmental bronchus + BAL.
Cultures + cytology sent from BAL. There were no immediate complications and postoperatively while in PACU CXR showed a small right-sided pneumothorax that enlarged despite being on NRB at 15 L/min. Patient denies any chest pain, shortness of
breath, headache, abdominal pain, fevers or chills. , Radha, at bedside and I answered all of her and the patient's questions.
PMHx: Hx of R-perihilar SCLC s/p XRT/chemo followed by prophylactic cranial irradiation (2018), history of radiation fibrosis of right lung, hypertension, hypercholesterolemia and former tobacco use disorder, history of pulmonary embolism, abnormal
PFTs with mild restrictive lung disease (performed 08/21/2023)
PSHx: Left rotator cuff surgery, Chemo-Port
Past Medical History
Past Medical History: Other (Above as per HPI)
Past Surgical History: Other (Above as per HPI)
Social History
Tobacco: Former Smoker (Prior heavy smoker with 46-ifno-vykg history)
Alcohol: None
Drug: Marijuana (Medical marijuana)
Personal:
Living: With Family
Family History
Family History: Hypertension
Allergies / Home Medications
Allergies
Allergy/AdvReac Type Severity Reaction Status Date / Time
No Known Allergies Allergy Verified 09/03/23 06:53
Home Medications
�Medication �Instructions �Recorded �Confirmed �Last Taken �Type
atorvastatin 40 mg tablet (Lipitor) 40 mg PO DAILY High Cholesterol 08/12/23 09/03/23 09/02/23 History
diphenhydramine 25 1 tab PO HSPRN PRN sleep 08/12/23 09/03/23 08/31/23 History
mg-acetaminophen 500 mg tablet
(Tylenol PM Extra Strength)
ferrous sulfate 325 mg (65 mg 325 mg PO DAILY Supplement 08/12/23 08/29/23 09/02/23 History
iron) tablet
hydrochlorothiazide 12.5 mg tablet 12.5 mg PO DAILY Blood 08/12/23 08/29/23 09/02/23 History
Pressure/edema
losartan 50 mg tablet 50 mg PO DAILY Blood Pressure 08/12/23 08/29/23 09/02/23 History
oxycodone-acetaminophen 10 mg-325 1 tab PO Q4HPRN PRN severe pain 08/12/23 09/03/23 09/02/23 20:00 History
mg tablet
tizanidine 2 mg tablet 2 mg PO HSPRN PRN spasms 08/12/23 09/03/23 08/31/23 History
Medical Cannibus 1 dose PO PRN PRN sleep, anxiety, 08/29/23 09/03/23 09/02/23 History
pain
Review of Systems
-
History Source: Patient
All other systems: Negative unless noted (12 point ROS performed and is negative unless mentioned above.)
Vitals / Labs / Diagnostic Testing
Vital Signs
Temp Pulse Resp BP Pulse Ox
98.0 F 90 16 123/90 100
09/03/23 12:00 09/03/23 12:00 09/03/23 12:00 09/03/23 12:00 09/03/23 12:00
Microbiology
09/03/23 09:54 Bronchoalveolar Lavage Fungal Culture - Preliminary
Culture in progress.
Positive cultures are reported as soon as detected.
Final report to follow in four to five weeks.
09/03/23 09:54 Bronchoalveolar Lavage Fungal Culture - Preliminary
Culture in progress.
Positive cultures are reported as soon as detected.
Final report to follow in four to five weeks.
Diagnostic Testing:
Physical Exam
-
HEENT: Normocephalic, Anicteric and Moist Mucous Membranes
Cardiovascular: S1/S2 and Peripheral Edema (n)
Respiratory: Wheeze (Negative), Rales (n), Rhonchi (n) and Accessory Resp Muscle Use (n)
GI: Soft, Non Distended, Non Tender and Normal Bowel Sounds
Neurology: Awake and Alert
Skin: Warm and Dry
General: Comfortable, Fever (n) and Chills (n)
Assessment
-
Assessment: 52-year-old male with a past medical history of limited stage small cell lung cancer s/p XRT/chemotherapy, history of right lung radiation fibrosis, history of KENYATTA, former tobacco use disorder (36-vzpv-gpno history), and recent
hospitalization from 08/1108/15/2023 due to pneumonia treated with antibiotics as well as prednisone taper due to wheezing on exam during that time, who now presents for elective outpatient robotic bronchoscopy which was complicated by right-sided
pneumothorax. Patient had a 14. 2 x 7.2 x 7.2 cm right perihilar mass seen on CTA chest from 08/12/2023 and was seen in our office on 08/21/2023 Dr. Wallace. Patient continued with a subacute cough although his symptoms had markedly improved. PFTs at
that time showed mild as moderate restriction with TLC 67%, FVC: 79%. Patient presented today for robotic bronchoscopy where he underwent RML�medial segmental bronchus brushing, TBNA, TBBx with BAL, as well as brushing in the RUL�posterior
segmental bronchus + BAL. Cultures + cytology sent from BAL. There were no immediate complications and postoperatively while in PACU CXR showed a small right-sided pneumothorax that enlarged despite being on NRB at 15 L/min. Patient denies any
chest pain, shortness of breath, headache, abdominal pain, fevers or chills. , Radha, at bedside and I answered all of her and the patient's questions.
Chronic conditions [employer]: Hx of R-perihilar SCLC s/p XRT/chemo followed by prophylactic cranial irradiation (2018), history of radiation fibrosis of right lung, hypertension, hypercholesterolemia and former tobacco use disorder, history of pulmonary
embolism, abnormal PFTs with mild restrictive lung disease (performed 08/21/2023)
Impression:
#Secondary pneumothorax due to robotic bronchoscopy with brushing, transbronchial needle aspiration + transbronchial biopsy on right perihilar mass seen on 08/12/2023
#Recently diagnosed pneumonia on 08/12/2023 s/p antibiotics + prednisone taper due to wheezing
#History of eosinophilia (seen on prior CBC from 10/2016) � suspect undiagnosed asthma
#History of right-sided perihilar small cell lung cancer s/p chemo/radiation (completed in 2018) with postradiation changes seen on CT chest from January 27, 2017; Hx of whole brain radiation
#Former tobacco use disorder
#Anemia
Plan:
- Considering patient's right-sided apical pneumothorax is enlarging, favor insertion of chest tube
- IR consult placed --> patient being prepared for chest tube to be placed by IR
- Check blood work now that he is being admitted, including CBC, BMP, Mg, PO4 and coags
- Once pneumothorax has resolved then I will repeat CT chest considering that the last CT chest was performed on 08/12/2023 when patient was diagnosed with pneumonia
- Maintain SpO2 >90-94% with supplemental O2 to help resorb his pneumothorax with nitrogen washout � place onto 6 L/min nasal cannula and keep this at this rate regardless of SpO2
- Avoid incentive spirometer or any other positive airway pressure devices (CPAP, BiPAP) as this will worsen his pneumothorax spirometer
- Follow-up pathology and microbiology from today's robotic bronchoscopy procedure
- I will let oncology (Dr. Morrow) know that the patient is being hospitalized and they will at least see him following discharge
- Of note, during the bronchoscopy today there was an equipment malfunction with the radial/linear EBUS, hence this greatly impacted my ability to get an accurate diagnosis on him, although fluoroscopy was used as
well as the boundaries were utilized using the [employer] software, hence the procedure was still done safely to minimize harm. MARJORIE via pathology saw atypical cells from the TBNA, otherewise it was non-diagnostic thus far
from brushing and TBBx
- Replete electrolytes with K>4, Mg>2
- Maintain euglycemia with goal BG >100 and <180
- prn nebulized bronchodilators
- Anti-tussants as needed
- DVT ppx
Pulmonary service will continue to follow along.
Total time spent today was 55 minutes for this encounter. Time includes reviewing laboratory test/imaging results, reviewing pertinent medical records, obtaining and reviewing medical history, performing an appropriate exam, ordering medications,
tests and procedures. Time also includes documentation of this encounter, coordinating patient care and communicating with other healthcare professionals. Total time does not include separately billed tests performed on this date of service.
Data:
CXR 09-03-2023: Small right apical pneumothorax, slightly increased in size compared to prior chest x-ray.
CTA Chest 08-12-2023:
1. LARGE 14 cm RECURRENT LUNG CANCER in the PERIHILAR RIGHT LUNG involving the right upper, middle, and lower lobes with encasement of the proximal bronchi and pulmonary arteries. Progressive radiation pneumonitis or pneumonia are considered much
less likely etiologies for the extensive perihilar consolidation.
2. Small pulmonary metastases in the right lower lobe which have increased in size.
3. Mild scarring throughout the peripheral right lung.
4. Severe scarring in the upper pole of the left kidney.
[2023-09-03] MEDS: DILAUDID 0.5 MG IV (13:50)
[2023-09-03 14:01] LABS: Hemoglobin 10.9 g/dL (13.0-18.0); Mean Corpuscular Hgb 31.3 pg (27.0-31.0); Mean Corpuscular Volume 94.8 fL (80.0-94.0); Mean Platelet Volume 9.8 fL (7.4-10.4); Platelet Count 170 10^3/uL (130-400); Red Blood Cell Count 3.48 10^6/uL (4.70-6.10); Red Cell Dist. Width 13.3 % (11.5-14.5); White Blood Cell Count 8.9 10^3/uL (4.8-10.8)
[2023-09-03] MEDS: DILAUDID 1 MG IV ×2 (16:25→19:29)
[2023-09-03] MEDS: LIPITOR 40 MG PO (16:28)
[2023-09-03] MEDS: ORETIC 12.5 MG PO (16:28)
[2023-09-03] MEDS: COZAAR 50 MG PO (16:28)
[2023-09-03] MEDS: FEOSOL 325 MG PO (16:28)
--- NOTE | 2023-09-03 16:43 | PTCARENOTE ---
Patient received from Interventional Radiology in [facility]; Patient transferred to bed; Right side chest tube site C/D/I, gauze with tape intact; Chest tube to -20 suction, tidaling present, no air leak present, no crepitus at site; Patient on 6L
NC per Dr. Juárez; Patient states pain in right side of chest/upper abdomen severe and worse with inspiration; See MAR; Patient awake and alert to self, place and time; Assessment ongoing
--- NOTE | 2023-09-03 18:34 | W.PN.UPDATE ---
Update Note
Progress Note Update
Patient seen after chest tube was inserted. Level 1 air-leak seen while on -20 cmH2O suction. With suction-tubing clamped there is no air leak even with forced expiration (i.e., cough). Patient has pain on the right side of his chest when he
takes of breath or when he is exerting himself, otherwise he denies any discomfort or shortness of breath. Will get repeat x-ray tonight and again in the morning. Pulmonary service will continue to follow along.
[2023-09-03] MEDS: ZANAFLEX 2 MG PO (21:09)
[2023-09-04] VITALS (8 sets, daily range): BP systolic 91–149; BP diastolic 58–93
[2023-09-04] MEDS: DILAUDID 1 MG IV ×6 (00:17→21:33)
[2023-09-04 06:18] LABS: Hematocrit 34.3 % (39.0-52.0); Hemoglobin 10.8 g/dL (13.0-18.0); Mean Corp Hgb Conc. 31.5 g/dL (33.0-37.0); Mean Corpuscular Volume 98.6 fL (80.0-94.0); Mean Platelet Volume 9.1 fL (7.4-10.4); Platelet Count 184 10^3/uL (130-400); Red Blood Cell Count 3.48 10^6/uL (4.70-6.10); White Blood Cell Count 13.4 10^3/uL (4.8-10.8)
[2023-09-04 06:56] LABS: Blood Urea Nitrogen 16 mg/dl (9-20); Carbon Dioxide 25 mmol/L (22-30); Chloride 101 mmol/L (98-107); Estimated Creatinine Clearance > 125 ml/min; Glucose 152 mg/dl (70-99); Potassium 4.6 mmol/L (3.5-5.1); Sodium 135 mmol/L (135-145); eGFR > 60.00
--- NOTE | 2023-09-04 08:57 | W.PN.HOSP.TC ---
Today's Communication/Plan
-
see bold
Assessment / Plan
Assessment / Plan
HPI: 52-year-old male with a past medical history of hypertension, hyperlipidemia, obstructive sleep apnea, former smoker, lung radiation fibrosis, and limited stage small cell lung cancer s/p XRT/chemotherapy was found to have a right-sided
iatrogenic pneumothorax status post robotic bronchoscopy with biopsy today for his new right perihilar lung mass. Patient denies chest pain, shortness of breath. He complains of being hungry. He will be seen in conjunction with pulmonology and
interventional radiology for chest tube management of his right-sided pneumothorax.
#Right-sided iatrogenic pneumothorax status post bronchoscopy
Status post chest tube insertion 09/02
Appreciate pulmonology and IR input, continue chest tube management as per pulmonology and IR
Pain control
#Right-sided lung mass
Status post bronchoscopy with biopsy 09/02
Follow-up biopsy results
#History of lung cancer
Status post chemo and radiation 5-6 years ago
[facility]
#Iron deficiency anemia
Continue ferrous sulfate
#Benign essential hypertension
Continue hydrochlorothiazide, losartan
#Hyperlipidemia
Continue statin
DVT prophylaxis�SCDs
Full code
Updated at bedside 09/03
Total time spent to see the patient on the floor, examine the patient, review data and lab results, discuss treatment plan with patient, nursing staff around 36 minutes.
Physical Exam
General: No acute distress
HEENT: Normocephalic, Atraumatic, EOMI, MMM
Respiratory: Clear to Auscultation bilaterally
Cardiac: Normal S1/S2, Regular Rate and Rhythm
Chest wall: R chest tube in place
GI: Soft, Nontender, Nondistended, Normal Bowel Sounds
Extremities: No Clubbing, Cyanosis, or Edema
Neuro: Nonfocal/Grossly Intact
Psych: Calm, Cooperative
Derm: No Visible lesions
Anticipated Discharge: 24 - 48 hours
Subjective/Interval History
-
Date of Service: September 04, 2023
Patient reports right-sided chest pain at the chest tube site. No shortness of breath, no fever, no vomiting.
Objective Data
-
Labs:
Laboratory Results
09/04/23
05:31
WBC 13.4 H
Hgb 10.8 L
Hct 34.3 L
Plt Count 184
Sodium 135
Potassium 4.6
Chloride 101
Carbon Dioxide 25
BUN 16
Creatinine 0.8
Glucose 152 H
Calcium 10.0
Vital Signs:
Vital Signs
Temp Pulse Resp BP Pulse Ox
97.6 F 91 18 149/93 99
09/04/23 08:05 09/04/23 08:35 09/04/23 08:35 09/04/23 08:35 09/04/23 08:05
I&O
09/03/23 09/04/23 09/05/23
06:59 06:59 06:59
Intake Total 1810 / 1810
Output Total 2708 / 2708
Balance -898 / -898
[2023-09-04] MEDS: ORETIC 12.5 MG PO (09:42)
[2023-09-04] MEDS: COZAAR 50 MG PO (09:42)
[2023-09-04] MEDS: LIPITOR 40 MG PO (09:42)
[2023-09-04] MEDS: FEOSOL 325 MG PO (09:42)
--- NOTE | 2023-09-04 10:47 | W.PN.PUL3 ---
Today's Communication / Plan
-
repeat CXR tomorrow AM
Keep chest tube to -[id number] suction unless told otherwise by provider
Continue supplemental O2 to help resorb PTX
Avoid incentive spirometer as this can worsen his PTX
Once PTX is resolved then will reduce negative pressure to -[id number] and eventually to CWS before doing clamp trial
Hopefully can be discharged over next 1-2 days
Assessment
-
Assessment: 52-year-old male with a past medical history of limited stage small cell lung cancer s/p XRT/chemotherapy, history of right lung radiation fibrosis, history of KENYATTA, former tobacco use disorder (22-[id number]-awvg history), and recent
hospitalization from 08/1108/15/2023 due to pneumonia treated with antibiotics as well as prednisone taper due to wheezing on exam during that time, who now presents for elective outpatient robotic bronchoscopy which was complicated by right-sided
pneumothorax. Patient had a 14. 2 x 7.2 x 7.2 cm right perihilar mass seen on CTA chest from 08/12/2023 and was seen in our office on 08/21/2023 Dr. Wallace. Patient continued with a subacute cough although his symptoms had markedly improved. PFTs at
that time showed mild as moderate restriction with TLC 67%, FVC: 79%. Patient presented today for robotic bronchoscopy where he underwent RML�medial segmental bronchus brushing, TBNA, TBBx with BAL, as well as brushing in the RUL�posterior
segmental bronchus + BAL. Cultures + cytology sent from BAL. There were no immediate complications and postoperatively while in PACU CXR showed a small right-sided pneumothorax that enlarged despite being on NRB at 15 L/min. Patient denies any
chest pain, shortness of breath, headache, abdominal pain, fevers or chills. , Radha, at bedside and I answered all of her and the patient's questions.
Chronic conditions [employer]: Hx of R-perihilar SCLC s/p XRT/chemo followed by prophylactic cranial irradiation (2018), history of radiation fibrosis of right lung, hypertension, hypercholesterolemia and former tobacco use disorder, history of pulmonary
embolism, abnormal PFTs with mild restrictive lung disease (performed 08/21/2023)
Impression:
#Secondary pneumothorax due to robotic bronchoscopy with brushing, transbronchial needle aspiration + transbronchial biopsy on right perihilar mass seen on 08/12/2023
#Recently diagnosed pneumonia on 08/12/2023 s/p antibiotics + prednisone taper due to wheezing
#History of eosinophilia (seen on prior CBC from 10/2016) � suspect undiagnosed asthma
#History of right-sided perihilar small cell lung cancer s/p chemo/radiation (completed in 2018) with postradiation changes seen on CT chest from January 27, 2017; Hx of whole brain radiation
#Former tobacco use disorder
#Anemia
Plan:
- Considering patient's right-sided apical pneumothorax is enlarging, chest tube inserted on 09/03/2023 by IR
- Right-sided pneumothorax unfortunately continued to enlarge and this morning pre-existing indwelling right-sided chest tube was found to have retracted and coiled and then was replaced with a new 14 Fr Thalquick chest tube
- Keep on negative suction at -[id number]
- Once pneumothorax has resolved then I will repeat CT chest considering that the last CT chest was performed on 08/12/2023 when patient was diagnosed with pneumonia
- Maintain SpO2 >90-94% with supplemental O2 to help resorb his pneumothorax with nitrogen washout � place onto 6 L/min nasal cannula and keep this at this rate regardless of SpO2
- Avoid incentive spirometer or any other positive airway pressure devices (CPAP, BiPAP) as this will worsen his pneumothorax spirometer
- Follow-up pathology and microbiology from today's robotic bronchoscopy procedure
- I messaged oncology (Dr. Morrow) to let him know that the patient is hospitalized and they will at least see him following discharge
- Of note, during the bronchoscopy on 09/02 there was an equipment malfunction with the radial/linear EBUS, hence this impacted my ability to get an accurate diagnosis on him, although fluoroscopy was used as
well as the boundaries were utilized using the [employer] software, hence the procedure was still done safely to minimize harm. MARJORIE via pathology saw atypical cells from the TBNA, otherwise it was non-diagnostic thus far
from brushing and TBBx
- Replete electrolytes with K>4, Mg>2
- Maintain euglycemia with goal BG >100 and <180
- prn nebulized bronchodilators
- Anti-tussants as needed
- DVT ppx
Pulmonary service will continue to follow along.
Total time spent today was 35 minutes for this encounter. Time includes reviewing laboratory test/imaging results, reviewing pertinent medical records, obtaining and reviewing medical history, performing an appropriate exam, ordering medications,
tests and procedures. Time also includes documentation of this encounter, coordinating patient care and communicating with other healthcare professionals. Total time does not include separately billed tests performed on this date of service.
Data:
CXR 09-04-2023: Repositioning of right chest tube in the interval since study earlier in the same day with significantly decreased right pneumothorax.
CXR 09-03-2023: Small right apical pneumothorax, slightly increased in size compared to prior chest x-ray.
CTA Chest 08-12-2023:
1. LARGE 14 cm RECURRENT LUNG CANCER in the PERIHILAR RIGHT LUNG involving the right upper, middle, and lower lobes with encasement of the proximal bronchi and pulmonary arteries. Progressive radiation pneumonitis or pneumonia are considered much
less likely etiologies for the extensive perihilar consolidation.
2. Small pulmonary metastases in the right lower lobe which have increased in size.
3. Mild scarring throughout the peripheral right lung.
4. Severe scarring in the upper pole of the left kidney.
Subjective Data
-
Date of Service:
Date of Service: September 04, 2023
Chief Complaint: Pulmonary Follow Up
Subjective:
Patient seen and evaluated this morning. Afebrile overnight. Still having some chest pain on the right side when he takes a deep breath otherwise feels well. CXR overnight and this morning showed persistently large right-sided pneumothorax and
patient underwent replacement of right-sided CT via IR this morning. Patient denies headache, abdominal pain, back pain, fevers or chills.
Review of Systems
General: Other (Negative unless mentioned above)
Objective Data
Data Reviewed
Vital Signs / I&O / Oxygen:
Vital Signs
Temp Pulse Resp BP Pulse Ox
97.6 F 91 18 149/93 99
09/04/23 08:05 09/04/23 08:35 09/04/23 08:35 09/04/23 08:35 09/04/23 08:05
Intake and Output
09/03/23 09/04/23 09/05/23
06:59 06:59 06:59
Intake Total 1810 / 1810
Output Total 2708 / 2708
Balance -898 / -898
SaO2 99
Nasal Cannula flow liters per 6
minute
Physical Exam
HEENT: Normocephalic and Anicteric
Cardiovascular: S1-S2 and Peripheral Edema (Negative)
Respiratory: Wheeze (Negative), Crackles (Right posterior hemithorax in upper lobe), Rhonchi (Negative), Accessory Resp Muscle Use (Negative) and Chest Tube (Right hemithorax)
GI: Soft, Non Distended, Non Tender and Normal Bowel Sounds
Neurology: AO x 3
Skin: Warm, Dry and Cyanosis (Negative)
Labs/Micro/Reports
Lab Data
09/04/23 05:31
09/04/23 05:31
Microbiology
09/03/23 09:54 Bronch Right Upper Lobe Gram Stain - Preliminary
09/03/23 09:54 Bronch Right Middle Lobe Gram Stain - Preliminary
09/03/23 09:54 Bronchoalveolar Lavage Fungal Culture - Preliminary
Culture in progress.
Positive cultures are reported as soon as detected.
Final report to follow in four to five weeks.
09/03/23 09:54 Bronchoalveolar Lavage Fungal Culture - Preliminary
Culture in progress.
Positive cultures are reported as soon as detected.
Final report to follow in four to five weeks.
--- NOTE | 2023-09-04 15:44 | CM ---
Reviewed the chart notes and spoke with the patient at the bedside. The patient resides with his spouse in a two story home with a one step to enter. The patient reports no DME/VN/SNF in the past. [facility] CM continues to be available to patient/family and is monitoring medical plan for needs at discharge.
Plan: Discharge to home when medically stable.
[2023-09-04] MEDS: ZANAFLEX 2 MG PO (22:34)
[2023-09-04] MEDS: BENADRYL 25 MG PO (22:34)
[2023-09-05 04:01] VITALS: BP 120/71
[2023-09-05] MEDS: DILAUDID 1 MG IV (05:01)
[2023-09-05 07:30] VITALS: BP 118/73
--- NOTE | 2023-09-05 08:24 | W.PN.HOSP.TC ---
Today's Communication/Plan
-
see bold
Assessment / Plan
Assessment / Plan
HPI: 52-year-old male with a past medical history of hypertension, hyperlipidemia, obstructive sleep apnea, former smoker, lung radiation fibrosis, and limited stage small cell lung cancer s/p XRT/chemotherapy was found to have a right-sided
iatrogenic pneumothorax status post robotic bronchoscopy with biopsy today for his new right perihilar lung mass. Patient denies chest pain, shortness of breath. He complains of being hungry. He will be seen in conjunction with pulmonology and
interventional radiology for chest tube management of his right-sided pneumothorax.
#Right-sided iatrogenic pneumothorax status post bronchoscopy
Status post chest tube insertion 09/02
Appreciate pulmonology and IR input, continue chest tube management as per pulmonology and IR
Pain control, discharge when cleared by pulmonology
#Right-sided lung mass
Status post bronchoscopy with biopsy 09/02
Follow-up biopsy results
#History of lung cancer
Status post chemo and radiation 5-6 years ago
[facility]
#Iron deficiency anemia
Continue ferrous sulfate
#Benign essential hypertension
Continue hydrochlorothiazide, losartan
#Hyperlipidemia
Continue statin
DVT prophylaxis�SCDs
Full code
Updated at bedside 09/03
Total time spent to see the patient on the floor, examine the patient, review data and lab results, discuss treatment plan with patient, nursing staff around 35 minutes.
Physical Exam
General: No acute distress
HEENT: Normocephalic, Atraumatic, EOMI, MMM
Respiratory: Clear to Auscultation bilaterally
Cardiac: Normal S1/S2, Regular Rate and Rhythm
Chest wall: R chest tube in place
GI: Soft, Nontender, Nondistended, Normal Bowel Sounds
Extremities: No Clubbing, Cyanosis, or Edema
Neuro: Nonfocal/Grossly Intact
Psych: Calm, Cooperative
Derm: No Visible lesions
Anticipated Discharge: 24 - 48 hours
Subjective/Interval History
-
Date of Service: September 05, 2023
Patient complains of chest pain at the chest tube site. No fever, no vomiting. No shortness of breath.
Objective Data
-
Vital Signs:
Vital Signs
Temp Pulse Resp BP Pulse Ox
98.3 F 88 16 118/73 100
09/05/23 07:30 09/05/23 07:30 09/05/23 07:30 09/05/23 07:30 09/05/23 07:30
I&O
09/04/23 09/05/23 09/06/23
06:59 06:59 06:59
Intake Total 1810 / 1810 1919 / 1919
Output Total 2708 / 2708 1890 / 189
Balance -898 / -898
[2023-09-05] MEDS: ROXICODONE 10 MG PO ×4 (08:42→21:36)
[2023-09-05] MEDS: FEOSOL 325 MG PO (08:45)
[2023-09-05] MEDS: ORETIC 12.5 MG PO (08:45)
[2023-09-05] MEDS: LIPITOR 40 MG PO (08:45)
[2023-09-05] MEDS: COZAAR PO (08:51)
--- NOTE | 2023-09-05 09:46 | CM ---
Reviewed the chart notes. Patient continues with chest tube to low suction. CM continues to be available to patient/family and is monitoring medical plan for needs at discharge.
Plan: Discharge to home when medically stable.
--- NOTE | 2023-09-05 11:09 | W.PN.PUL3 ---
Today's Communication / Plan
-
Incentive CXR tomorrow morning, check CT chest to assess for any loculated pneumothorax
Reduce chest tube suction to -[id number] from -[id number]
If there is any sudden shortness of breath, hypoxia or chest pain, obtain stat CXR and contact pulmonary physician on-call immediately
Continue supplemental O2 to help resorb PTX
Avoid incentive spirometer as this can worsen his PTX
Once PTX is resolved then will remove chest tube from suction and TRX to CWS before doing clamp trial
Hopefully can be discharged over next 1-2 days
Assessment
-
Assessment: 52-year-old male with a past medical history of limited stage small cell lung cancer s/p XRT/chemotherapy, history of right lung radiation fibrosis, history of KENYATTA, former tobacco use disorder ([id number] history), and recent
hospitalization from 08/1108/15/2023 due to pneumonia treated with antibiotics as well as prednisone taper due to wheezing on exam during that time, who now presents for elective outpatient robotic bronchoscopy which was complicated by right-sided
pneumothorax. Patient had a 14. 2 x 7.2 x 7.2 cm right perihilar mass seen on CTA chest from 08/12/2023 and was seen in our office on 08/21/2023 Dr. Wallace. Patient continued with a subacute cough although his symptoms had markedly improved. PFTs at
that time showed mild as moderate restriction with TLC 67%, FVC: 79%. Patient presented today for robotic bronchoscopy where he underwent RML�medial segmental bronchus brushing, TBNA, TBBx with BAL, as well as brushing in the RUL�posterior
segmental bronchus + BAL. Cultures + cytology sent from BAL. There were no immediate complications and postoperatively while in PACU CXR showed a small right-sided pneumothorax that enlarged despite being on NRB at 15 L/min. Patient denies any
chest pain, shortness of breath, headache, abdominal pain, fevers or chills. , Radha, at bedside and I answered all of her and the patient's questions.
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
embolism, abnormal PFTs with mild restrictive lung disease (performed 08/21/2023)
Impression:
#Secondary pneumothorax due to robotic bronchoscopy with brushing, transbronchial needle aspiration + transbronchial biopsy on right perihilar mass seen on 08/12/2023
#Recently diagnosed pneumonia on 08/12/2023 s/p antibiotics + prednisone taper due to wheezing
#History of eosinophilia (seen on prior CBC from 10/2016) � suspect undiagnosed asthma
#History of right-sided perihilar small cell lung cancer s/p chemo/radiation (completed in 2018) with postradiation changes seen on CT chest from January 27, 2017; Hx of whole brain radiation
#Former tobacco use disorder
#Anemia
Plan:
- Considering patient's right-sided apical pneumothorax is enlarging, chest tube inserted on 09/03/2023 by IR
- Right-sided pneumothorax unfortunately continued to enlarge on 09/03 as pre-existing indwelling right-sided chest tube was found to have retracted and coiled --> IR replaced with a new 14 Fr Thalquick chest tube
- Keep on negative suction at -[id number]
- Daily CXR
- Check CT chest in AM considering that the last CT chest was performed on 08/12/2023 when patient was diagnosed with pneumonia
- Maintain SpO2 >90-94% with supplemental O2 to help resorb his pneumothorax with nitrogen washout � placed onto 6 L/min nasal cannula and keep this at this rate regardless of SpO2
- Avoid incentive spirometer or any other positive airway pressure devices (CPAP, BiPAP) as this will worsen his pneumothorax spirometer
- Follow-up pathology and microbiology from robotic bronchoscopy procedure --> pathology from brushing, TBNA, TBBx and BAL all negative for malignancy --> pt made aware of these results
- BAL cultures also show NGTD
- I messaged oncology (Dr. Morrow) to let him know that the patient is hospitalized and they will at least see him following discharge - he has not gotten back to me yet
- Of note, during the bronchoscopy on 09/02 there was an equipment malfunction with the radial/linear EBUS, hence this impacted my ability to get an accurate diagnosis on him, although fluoroscopy was used as
well as the boundaries were utilized using the [employer] software, hence the procedure was still done safely to minimize harm. MARJORIE via pathology saw atypical cells from the TBNA, otherwise it was non-diagnostic thus far
from brushing and TBBx
- Replete electrolytes with K>4, Mg>2
- Maintain euglycemia with goal BG >100 and <180
- prn nebulized bronchodilators
- Anti-tussants as needed
- DVT ppx
Pulmonary service will continue to follow along.
Total time spent today was 35 minutes for this encounter. Time includes reviewing laboratory test/imaging results, reviewing pertinent medical records, obtaining and reviewing medical history, performing an appropriate exam, ordering medications,
tests and procedures. Time also includes documentation of this encounter, coordinating patient care and communicating with other healthcare professionals. Total time does not include separately billed tests performed on this date of service.
Data:
CVXR 09-05-2023: Small right apical pneumothorax, slightly improved compared to prior chest x-ray; Scalloping of the pleural margin, suggestive of pleural effusions.
CXR 09-04-2023: Repositioning of right chest tube in the interval since study earlier in the same day with significantly decreased right pneumothorax.
CXR 09-03-2023: Small right apical pneumothorax, slightly increased in size compared to prior chest x-ray.
CTA Chest 08-12-2023:
1. LARGE 14 cm RECURRENT LUNG CANCER in the PERIHILAR RIGHT LUNG involving the right upper, middle, and lower lobes with encasement of the proximal bronchi and pulmonary arteries. Progressive radiation pneumonitis or pneumonia are considered much
less likely etiologies for the extensive perihilar consolidation.
2. Small pulmonary metastases in the right lower lobe which have increased in size.
3. Mild scarring throughout the peripheral right lung.
4. Severe scarring in the upper pole of the left kidney.
Subjective Data
-
Date of Service:
Date of Service: September 05, 2023
Chief Complaint: Pulmonary Follow Up
Subjective:
Patient seen and evaluated today at bedside. at bedside. He feels similar to yesterday. Still having pain on his right side where the chest tube is located. CXR today shows small right apical pneumothorax improved compared to prior study.
He has a level 1 airleak on chest tube at -20 cm of suction, with no airleak when suction is clamped. He denies headache, back pain, nausea, vomiting, fevers or chills.
Review of Systems
General: Other (Negative unless mentioned above)
Objective Data
Data Reviewed
Vital Signs / I&O / Oxygen:
Vital Signs
Temp Pulse Resp BP Pulse Ox
98.3 F 94 16 99/56 100
09/05/23 07:30 09/05/23 08:51 09/05/23 07:30 09/05/23 08:51 09/05/23 07:30
Intake and Output
09/04/23 09/05/23 09/06/23
06:59 06:59 06:59
Intake Total 1810 / 1810 1920 / 1920
Output Total 2708 / 2708 1891 / 1891
Balance -898 / -898
SaO2 100
Nasal Cannula flow liters per 4
minute
Physical Exam
General: Respiratory Distress (Negative) and Comfortable
HEENT: Normocephalic and Anicteric
Cardiovascular: S1-S2 and Peripheral Edema (Negative)
Respiratory: Wheeze (Negative), Crackles (Right posterior hemithorax in upper lobe), Rhonchi (Negative), Accessory Resp Muscle Use (Negative) and Chest Tube (Right hemithorax)
GI: Soft, Non Distended, Non Tender and Normal Bowel Sounds
Neurology: AO x 3 and Tremors (n)
Skin: Warm, Dry and Cyanosis (Negative)
Labs/Micro/Reports
Lab Data
09/04/23 05:31
09/04/23 05:31
Microbiology
09/03/23 09:54 Bronch Right Middle Lobe Respiratory Culture - Final
NO GROWTH
09/03/23 09:54 Bronch Right Middle Lobe Gram Stain - Final
09/03/23 09:54 Bronch Right Upper Lobe Respiratory Culture - Final
NO GROWTH
09/03/23 09:54 Bronch Right Upper Lobe Gram Stain - Final
09/03/23 09:54 Bronchoalveolar Lavage Fungal Culture - Preliminary
Culture in progress.
Positive cultures are reported as soon as detected.
Final report to follow in four to five weeks.
09/03/23 09:54 Bronchoalveolar Lavage Fungal Culture - Preliminary
Culture in progress.
Positive cultures are reported as soon as detected.
Final report to follow in four to five weeks.
[2023-09-05 11:24] VITALS: BP 134/80
[2023-09-05 12:29] LABS: Glycohemoglobin (HgbA1c) 6.3 % (4.0-5.6)
[2023-09-05 15:25] VITALS: BP 120/77
[2023-09-05 19:35] VITALS: BP 141/68
[2023-09-05] MEDS: ZANAFLEX 2 MG PO (22:40)
[2023-09-05] MEDS: BENADRYL 25 MG PO (22:41)
[2023-09-05 23:12] VITALS: BP 121/81
[2023-09-06] MEDS: ROXICODONE 10 MG PO ×3 (03:31→20:16)
[2023-09-06 03:35] VITALS: BP 156/96
[2023-09-06] MEDS: DILAUDID 1 MG IV ×2 (07:44→15:40)
[2023-09-06 07:45] VITALS: BP 120/82
--- NOTE | 2023-09-06 08:31 | W.PN.HOSP.TC ---
Today's Communication/Plan
-
see bold
Assessment / Plan
Assessment / Plan
HPI: 52-year-old male with a past medical history of hypertension, hyperlipidemia, obstructive sleep apnea, former smoker, lung radiation fibrosis, and limited stage small cell lung cancer s/p XRT/chemotherapy was found to have a right-sided
iatrogenic pneumothorax status post robotic bronchoscopy with biopsy today for his new right perihilar lung mass. Patient denies chest pain, shortness of breath. He complains of being hungry. He will be seen in conjunction with pulmonology and
interventional radiology for chest tube management of his right-sided pneumothorax.
#Right-sided iatrogenic pneumothorax status post bronchoscopy
Status post chest tube insertion 09/02
Appreciate pulmonology and IR input, continue chest tube management as per pulmonology and IR
Pain control, discharge when cleared by pulmonology
#Right-sided lung mass
Status post bronchoscopy with biopsy 09/02
Follow-up biopsy results
#History of lung cancer
Status post chemo and radiation 5-6 years ago
[facility]
#Iron deficiency anemia
Continue ferrous sulfate
#Benign essential hypertension
Continue hydrochlorothiazide, losartan
#Hyperlipidemia
Continue statin
DVT prophylaxis�SCDs
Full code
Updated at bedside 09/05
Total time spent to see the patient on the floor, examine the patient, review data and lab results, discuss treatment plan with patient, nursing staff around 36 minutes.
Physical Exam
General: No acute distress
HEENT: Normocephalic, Atraumatic, EOMI, MMM
Respiratory: Clear to Auscultation bilaterally
Cardiac: Normal S1/S2, Regular Rate and Rhythm
Chest wall: R chest tube in place
GI: Soft, Nontender, Nondistended, Normal Bowel Sounds
Extremities: No Clubbing, Cyanosis, or Edema
Neuro: Nonfocal/Grossly Intact
Psych: Calm, Cooperative
Derm: No Visible lesions
Anticipated Discharge: Within 24 hours
Subjective/Interval History
-
Date of Service: September 06, 2023
No acute events. No shortness of breath. He continues to have right-sided chest pain at the chest tube site.
Objective Data
-
Vital Signs:
Vital Signs
Temp Pulse Resp BP Pulse Ox
98.5 F 95 18 120/82 100
09/06/23 07:45 09/06/23 07:45 09/06/23 07:45 09/06/23 07:45 09/06/23 07:45
I&O
09/05/23 09/06/23 09/07/23
06:59 06:59 06:59
Intake Total 0 / 1919 2880 / 2880
Output Total 1890 / 1890 609 / 609
Balance 2271 / 2271
[2023-09-06] MEDS: LIPITOR 40 MG PO (09:04)
[2023-09-06] MEDS: FEOSOL 325 MG PO (09:04)
[2023-09-06] MEDS: COZAAR 50 MG PO (09:04)
[2023-09-06] MEDS: ORETIC 12.5 MG PO (09:04)
[2023-09-06 11:30] VITALS: BP 118/81
--- NOTE | 2023-09-06 14:26 | W.PN.PUL3 ---
Today's Communication / Plan
-
Return to -20 suction
Chest x-ray in a.m.
Add mechanical and chemical DVT prophylaxis
Pain control
Assessment
-
Assessment: 52-year-old male with a past medical history of limited stage small cell lung cancer s/p XRT/chemotherapy, history of right lung radiation fibrosis, history of KENYATTA, former tobacco use disorder ([id number] history), and recent
hospitalization from 08/1108/15/2023 due to pneumonia treated with antibiotics as well as prednisone taper due to wheezing on exam during that time, who now presents for elective outpatient robotic bronchoscopy which was complicated by right-sided
pneumothorax. Patient had a 14. 2 x 7.2 x 7.2 cm right perihilar mass seen on CTA chest from 08/12/2023 and was seen in our office on 08/21/2023 Dr. Wallace. Patient continued with a subacute cough although his symptoms had markedly improved. PFTs at
that time showed mild as moderate restriction with TLC 67%, FVC: 79%. Patient presented today for robotic bronchoscopy where he underwent RML�medial segmental bronchus brushing, TBNA, TBBx with BAL, as well as brushing in the RUL�posterior
segmental bronchus + BAL. Cultures + cytology sent from BAL. There were no immediate complications and postoperatively while in PACU CXR showed a small right-sided pneumothorax that enlarged despite being on NRB at 15 L/min. Patient denies any
chest pain, shortness of breath, headache, abdominal pain, fevers or chills. , Radha, at bedside and I answered all of her and the patient's questions.
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
embolism, abnormal PFTs with mild restrictive lung disease (performed 08/21/2023)
Impression:
#Secondary pneumothorax due to robotic bronchoscopy with brushing, transbronchial needle aspiration + transbronchial biopsy on right perihilar mass seen on 08/12/2023
#Recently diagnosed pneumonia on 08/12/2023 s/p antibiotics + prednisone taper due to wheezing
#History of eosinophilia (seen on prior CBC from 10/2016) � suspect undiagnosed asthma
#History of right-sided perihilar small cell lung cancer s/p chemo/radiation (completed in 2018) with postradiation changes seen on CT chest from January 27, 2017; Hx of whole brain radiation
#Former tobacco use disorder
#Anemia
Plan:
Chest x-ray this morning stable, no worsening
Intermittent airleak noted, was -10 cm H2O
Patient without complaints, mild cough
Moving forward
Continue with chest tube to suction, returned back to -20 cm water
Lets see how he does with consistent negative suction for few days
Repeat x-ray in a.m.
Depending on how it looks, will consider CT chest
Discussed options with patient
1) continue with -20 suction through the weekend and hope for some improvement
2) CT chest and consider second chest tube for loculated area of pneumothorax
3) eventual transition to Heimlich chest tube if able
Patient is in favor of option #1
He wants to avoid second tube at all cost. Did review the potential where this may be required depending on clinical course
Continue with supplemental oxygen therapy
Currently on 4 L.
Maintain at 6 L regardless of saturation, see Dr. Phoenix recommendation
Avoid incentive spirometer, positive pressure
Await pathology
Recommend DVT prophylaxis: Both mechanical and pharmacological. This was added
Discussion per Dr. Juárez:
- Follow-up pathology and microbiology from robotic bronchoscopy procedure --> pathology from brushing, TBNA, TBBx and BAL all negative for malignancy --> pt made aware of these results
- BAL cultures also show NGTD
- I messaged oncology (Dr. Morrow) to let him know that the patient is hospitalized and they will at least see him following discharge - he has not gotten back to me yet
- Of note, during the bronchoscopy on 09/02 there was an equipment malfunction with the radial/linear EBUS, hence this impacted my ability to get an accurate diagnosis on him, although fluoroscopy was used as
well as the boundaries were utilized using the [employer] software, hence the procedure was still done safely to minimize harm. MARJORIE via pathology saw atypical cells from the TBNA, otherwise it was non-diagnostic thus far
from brushing and TBBx
Pulmonary service will continue to follow along.
Reviewed above plan at length with patient and at bedside
Reviewed with primary service
Data:
CVXR 09-05-2023: Small right apical pneumothorax, slightly improved compared to prior chest x-ray; Scalloping of the pleural margin, suggestive of pleural effusions.
CXR 09-04-2023: Repositioning of right chest tube in the interval since study earlier in the same day with significantly decreased right pneumothorax.
CXR 09-03-2023: Small right apical pneumothorax, slightly increased in size compared to prior chest x-ray.
CTA Chest 08-12-2023:
1. LARGE 14 cm RECURRENT LUNG CANCER in the PERIHILAR RIGHT LUNG involving the right upper, middle, and lower lobes with encasement of the proximal bronchi and pulmonary arteries. Progressive radiation pneumonitis or pneumonia are considered much
less likely etiologies for the extensive perihilar consolidation.
2. Small pulmonary metastases in the right lower lobe which have increased in size.
3. Mild scarring throughout the peripheral right lung.
4. Severe scarring in the upper pole of the left kidney.
Subjective Data
-
Date of Service:
Date of Service: September 06, 2023
Chief Complaint: Pulmonary Follow Up
Subjective:
Patient evaluated earlier this morning and again in the afternoon. He is feeling well. Chest tube site intact, mild pain. Denies shortness of breath, nausea. Has mild dry cough but no hemoptysis. at bedside. Patient in good spirits
Objective Data
Data Reviewed
Vital Signs / I&O / Oxygen:
Vital Signs
Temp Pulse Resp BP Pulse Ox
98 F 116 17 118/81 95
09/06/23 11:30 09/06/23 11:30 09/06/23 11:30 09/06/23 11:30 09/06/23 11:30
Intake and Output
09/05/23 09/06/23 09/07/23
06:59 06:59 06:59
Intake Total 1920 / 1920 2880 / 2880
Output Total 189 / 189 609 / 609
Balance 2271 / 1
SaO2 95
Nasal Cannula flow liters per 4
minute
Physical Exam
General: Comfortable
HEENT: Normocephalic and Anicteric
Cardiovascular: S1-S2, Regular Rhythm, Murmur (n), Peripheral Edema (Negative) and Calf Tenderness (n)
Respiratory: Wheeze (Negative), Crackles (Right posterior hemithorax in upper lobe), Rhonchi (Negative), Non-Labored Respirations, Stridor (n) and Chest Tube (Intermittent airleak, right chest tube)
GI: Soft, Non Distended and Non Tender
Neurology: Awake, Alert and No Motor Deficits (Moves all extremities)
Skin: Cyanosis (Negative) and Rash
Labs/Micro/Reports
Lab Data
09/04/23 05:31
09/04/23 05:31
Microbiology
09/03/23 09:54 Bronchoalveolar Lavage Acid Fast Bacilli Smear - Preliminary
09/03/23 09:54 Bronchoalveolar Lavage Acid Fast Bacilli Culture - Preliminary
09/03/23 09:54 Bronchoalveolar Lavage Acid Fast Bacilli Smear - Preliminary
09/03/23 09:54 Bronchoalveolar Lavage Acid Fast Bacilli Culture - Preliminary
09/03/23 09:54 Bronch Right Middle Lobe Respiratory Culture - Final
NO GROWTH
09/03/23 09:54 Bronch Right Middle Lobe Gram Stain - Final
09/03/23 09:54 Bronch Right Upper Lobe Respiratory Culture - Final
NO GROWTH
09/03/23 09:54 Bronch Right Upper Lobe Gram Stain - Final
09/03/23 09:54 Bronchoalveolar Lavage Fungal Culture - Preliminary
Culture in progress.
Positive cultures are reported as soon as detected.
Final report to follow in four to five weeks.
09/03/23 09:54 Bronchoalveolar Lavage Fungal Culture - Preliminary
Culture in progress.
Positive cultures are reported as soon as detected.
Final report to follow in four to five weeks.
[2023-09-06 15:17] VITALS: BP 113/83
--- NOTE | 2023-09-06 15:30 | PTCARENOTE ---
Addendum entered by Qing Williamson RN 09/06/23 15:42:
Patient amiable to 6L NC without humidification.
Original Note:
Spoke with patient about pulmonary's orders to change 4L NC to 6L NC. Explained rationale behind the order.
Patient expressed frustration with this, stated 'I've been here for days and no one has said anything to me about this. Why would I need to be on a higher level of oxygen if my oxygen level is perfect? The oxygen is giving me a headache and I feel
like my head is going to explode.'
Tried to re-educate on how higher NC can help with his pneumothorax however he wanted further explanation by an MD before accepting the change.
Titrated back down to 4L NC, spoke with corn husk baler Dr. Méndez via [employer]. Okay to leave on 4L NC for now. For re-education by pulmonary tomorrow.
[2023-09-06] MEDS: TYLENOL 650 MG PO (15:40)
[2023-09-06] MEDS: LOVENOX 40 MG SC (17:00)
[2023-09-06 19:00] VITALS: BP 108/70
[2023-09-06] MEDS: BENADRYL 25 MG PO (22:41)
[2023-09-06] MEDS: ZANAFLEX 2 MG PO (22:41)
[2023-09-06 23:00] VITALS: BP 113/74
[2023-09-07] MEDS: DILAUDID 1 MG IV ×4 (02:25→16:55)
[2023-09-07 03:00] VITALS: BP 128/75
[2023-09-07 07:34] VITALS: BP 120/84
[2023-09-07] MEDS: COZAAR 50 MG PO (08:08)
[2023-09-07] MEDS: LIPITOR 40 MG PO (08:08)
[2023-09-07] MEDS: ORETIC 12.5 MG PO (08:08)
[2023-09-07] MEDS: FEOSOL 325 MG PO (08:08)
--- NOTE | 2023-09-07 08:32 | W.PN.HOSP.TC ---
Today's Communication/Plan
-
see bold
Assessment / Plan
Assessment / Plan
HPI: 52-year-old male with a past medical history of hypertension, hyperlipidemia, obstructive sleep apnea, former smoker, lung radiation fibrosis, and limited stage small cell lung cancer s/p XRT/chemotherapy was found to have a right-sided
iatrogenic pneumothorax status post robotic bronchoscopy with biopsy today for his new right perihilar lung mass. Patient denies chest pain, shortness of breath. He complains of being hungry. He will be seen in conjunction with pulmonology and
interventional radiology for chest tube management of his right-sided pneumothorax.
#Right-sided iatrogenic pneumothorax status post bronchoscopy
Status post chest tube insertion 09/02
09/[address] shows moderate right-sided pneumothorax
Appreciate pulmonology and IR input, continue chest tube management as per pulmonology and IR
Pain control, discharge when cleared by pulmonology
#Right-sided lung mass
Status post bronchoscopy with biopsy 09/02
Follow-up biopsy results
#History of lung cancer
Status post chemo and radiation 5-6 years ago
[facility]
#Iron deficiency anemia
Continue ferrous sulfate
#Benign essential hypertension
Continue hydrochlorothiazide, losartan
#Hyperlipidemia
Continue statin
DVT prophylaxis�SCDs
Full code
Updated at bedside 09/06
Total time spent to see the patient on the floor, examine the patient, review data and lab results, discuss treatment plan with patient, nursing staff around 35 minutes.
Physical Exam
General: No acute distress
HEENT: Normocephalic, Atraumatic, EOMI, MMM
Respiratory: Clear to Auscultation bilaterally
Cardiac: Normal S1/S2, Regular Rate and Rhythm
Chest wall: R chest tube in place
GI: Soft, Nontender, Nondistended, Normal Bowel Sounds
Extremities: No Clubbing, Cyanosis, or Edema
Neuro: Nonfocal/Grossly Intact
Psych: Calm, Cooperative
Derm: No Visible lesions
Anticipated Discharge: 24 - 48 hours
Subjective/Interval History
-
Date of Service: September 07, 2023
No acute events. His chest pain is controlled with his pain medications. No shortness of breath, no fever, no vomiting.
Objective Data
-
Vital Signs:
Vital Signs
Temp Pulse Resp BP Pulse Ox
98.4 F 97 17 120/84 100
09/07/23 07:34 09/07/23 07:34 09/07/23 07:34 09/07/23 07:34 09/07/23 07:34
I&O
09/06/23 09/07/23 09/08/23
06:59 06:59 06:59
Intake Total 2880 / 2880 3840 / 3840
Output Total 609 / 609 2319 / 2319
Balance 2271 / 2271 1521 / 1521
--- NOTE | 2023-09-07 10:32 | W.PN.PUL3 ---
Today's Communication / Plan
-
Suspected right-sided pneumothorax is trapped lung with pneumothorax ex vacuo
Place chest tube to waterseal tonight and if x-ray in a.m. shows no difference then we potentially could remove chest tube and have serial CXR after that with outpatient follow-up
Continue mechanical and chemical DVT prophylaxis
Pain control
Assessment
-
Assessment: 52-year-old male with a past medical history of limited stage small cell lung cancer s/p XRT/chemotherapy, history of right lung radiation fibrosis, history of KENYATTA, former tobacco use disorder ([id number] history), and recent
hospitalization from 08/1108/15/2023 due to pneumonia treated with antibiotics as well as prednisone taper due to wheezing on exam during that time, who now presents for elective outpatient robotic bronchoscopy which was complicated by right-sided
pneumothorax. Patient had a 14. 2 x 7.2 x 7.2 cm right perihilar mass seen on CTA chest from 08/12/2023 and was seen in our office on 08/21/2023 Dr. Wallace. Patient continued with a subacute cough although his symptoms had markedly improved. PFTs at
that time showed mild as moderate restriction with TLC 67%, FVC: 79%. Patient presented today for robotic bronchoscopy where he underwent RML�medial segmental bronchus brushing, TBNA, TBBx with BAL, as well as brushing in the RUL�posterior
segmental bronchus + BAL. Cultures + cytology sent from BAL. There were no immediate complications and postoperatively while in PACU CXR showed a small right-sided pneumothorax that enlarged despite being on NRB at 15 L/min. Patient denies any
chest pain, shortness of breath, headache, abdominal pain, fevers or chills. , Radha, at bedside and I answered all of her and the patient's questions.
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
embolism, abnormal PFTs with mild restrictive lung disease (performed 08/21/2023)
Impression:
#Secondary pneumothorax due to robotic bronchoscopy with brushing, transbronchial needle aspiration + transbronchial biopsy on right perihilar mass seen on 08/12/2023
#Recently diagnosed pneumonia on 08/12/2023 s/p antibiotics + prednisone taper due to wheezing
#History of eosinophilia (seen on prior CBC from 10/2016) � suspect undiagnosed asthma
#History of right-sided perihilar small cell lung cancer s/p chemo/radiation (completed in 2018) with postradiation changes seen on CT chest from January 27, 2017; Hx of whole brain radiation
#Former tobacco use disorder
#Anemia
Plan:
Chest x-ray this morning stable, no worsening with stable right apical pneumothorax
Intermittent airleak noted on suction at -20 cmH2O
Patient without complaints, mild cough
Moving forward:
Chest tube moved to -10 [address] today [address] chest done this afternoon - shows persistent right-sided pneumothorax with central right lung airspace consolidation suspicious for recurrent tumor versus radiation fibrosis.
I discussed case with IR to see recommendations, and given there is only a level 1 airleak on suction and when suction is held, there is no air leak at all, this is doubtful for BPF. More likely right-sided pneumothorax is trapped lung with
pneumothorax ex vacuo
Place chest tube to waterseal tonight and if x-ray in a.m. shows no difference then we potentially could remove chest tube and have serial CXR after that with outpatient follow-up
Continue with supplemental oxygen therapy
Maintain at 6 L regardless of saturation, see Dr. Juárez's recommendation
Avoid incentive spirometer, positive pressure
Recommend DVT prophylaxis: Both mechanical and pharmacological. This was added
Discussion per Dr. Juárez:
- Follow-up pathology and microbiology from robotic bronchoscopy procedure --> pathology from brushing, TBNA, TBBx and BAL all negative for malignancy --> pt made aware of these results
- BAL cultures also show NGTD
- I messaged oncology (Dr. Morrow) to let him know that the patient is hospitalized and they will at least see him following discharge - he has not gotten back to me yet
- Of note, during the bronchoscopy on 09/02 there was an equipment malfunction with the radial/linear EBUS, hence this impacted my ability to get an accurate diagnosis on him, although fluoroscopy was used as
well as the boundaries were utilized using the [employer] software, hence the procedure was still done safely to minimize harm. MARJORIE via pathology saw atypical cells from the TBNA, otherwise it was non-diagnostic thus far
from brushing and TBBx
Pulmonary service will continue to follow along.
Reviewed above plan at length with patient and at bedside
Reviewed with primary service
Total time spent today was 35 minutes for this encounter. Time includes reviewing laboratory test/imaging results, reviewing pertinent medical records, obtaining and reviewing medical history, performing an appropriate exam, ordering medications,
tests and procedures. Time also includes documentation of this encounter, coordinating patient care and communicating with other healthcare professionals. Total time does not include separately billed tests performed on this date of service.
Data:
CXR 09-05-2023: Small right apical pneumothorax, slightly improved compared to prior chest x-ray; Scalloping of the pleural margin, suggestive of pleural effusions.
CXR 09-04-2023: Repositioning of right chest tube in the interval since study earlier in the same day with significantly decreased right pneumothorax.
CXR 09-03-2023: Small right apical pneumothorax, slightly increased in size compared to prior chest x-ray.
CT Chest w/o Contrast 09-07-2023:
1. Moderate RIGHT-sided pneumothorax despite adequate positioning of lateral right chest tube. Within the anterior medial segment of the right upper lobe, there is irregular appearance of the peripheral parenchyma which may be due to underlying
paraseptal emphysema with discontinuous appearance of the visceral pleura, suspicious for the source of patient's air leak.
2. Redemonstration of irregular airspace consolidation within the central right lung with associated air bronchograms, suspicious for recurrent tumor superimposed upon radiation fibrosis. Several small nodules within both lungs redemonstrated.
3. Small amount of subcutaneous emphysema within the lateral right chest wall.
CTA Chest 08-12-2023:
1. LARGE 14 cm RECURRENT LUNG CANCER in the PERIHILAR RIGHT LUNG involving the right upper, middle, and lower lobes with encasement of the proximal bronchi and pulmonary arteries. Progressive radiation pneumonitis or pneumonia are considered much
less likely etiologies for the extensive perihilar consolidation.
2. Small pulmonary metastases in the right lower lobe which have increased in size.
3. Mild scarring throughout the peripheral right lung.
4. Severe scarring in the upper pole of the left kidney.
Subjective Data
-
Date of Service:
Date of Service: September 07, 2023
Chief Complaint: Pulmonary Follow Up
Subjective:
Patient seen and evaluated today at bedside. He has pain on the right side where the chest tube is located, otherwise denies SOB, headache, abdominal pain, fevers or chills. Chest tube was at -20 cm of water this morning with no airleak when
suction is removed and level 1 airleak when suction is reapplied.
Review of Systems
General: Other (Negative unless mentioned above)
Objective Data
Data Reviewed
Vital Signs / I&O / Oxygen:
Vital Signs
Temp Pulse Resp BP Pulse Ox
98.4 F 97 17 120/84 100
09/07/23 07:34 09/07/23 07:34 09/07/23 07:34 09/07/23 07:34 09/07/23 07:34
Intake and Output
09/06/23 09/07/23 09/08/23
06:59 06:59 06:59
Intake Total 2880 / 2880 3840 / 3840
Output Total 609 / 609 2319 / 2319
Balance 2271 / 2271 1521 / 1521
SaO2 100
Nasal Cannula flow liters per 6
minute
Physical Exam
General: Comfortable
HEENT: Normocephalic and Anicteric
Cardiovascular: S1-S2, Murmur (n), Peripheral Edema (Negative) and Calf Tenderness (n)
Respiratory: Wheeze (Negative), Crackles (Right posterior hemithorax in upper lobe), Rhonchi (Negative), Non-Labored Respirations, Stridor (n) and Chest Tube (Intermittent airleak while on suction, no airleak when suction turned off, right chest
tube)
GI: Soft, Non Distended and Non Tender
Neurology: Awake, Alert and No Motor Deficits (Moves all extremities)
Skin: Cyanosis (Negative) and Rash
Labs/Micro/Reports
Lab Data
09/04/23 05:31
09/04/23 05:31
Microbiology
09/03/23 09:54 Bronchoalveolar Lavage Acid Fast Bacilli Smear - Preliminary
09/03/23 09:54 Bronchoalveolar Lavage Acid Fast Bacilli Culture - Preliminary
09/03/23 09:54 Bronchoalveolar Lavage Acid Fast Bacilli Smear - Preliminary
09/03/23 09:54 Bronchoalveolar Lavage Acid Fast Bacilli Culture - Preliminary
09/03/23 09:54 Bronch Right Middle Lobe Respiratory Culture - Final
NO GROWTH
09/03/23 09:54 Bronch Right Middle Lobe Gram Stain - Final
09/03/23 09:54 Bronch Right Upper Lobe Respiratory Culture - Final
NO GROWTH
09/03/23 09:54 Bronch Right Upper Lobe Gram Stain - Final
[2023-09-07 11:29] VITALS: BP 122/78
[2023-09-07] MEDS: ROXICODONE 10 MG PO ×2 (13:20→20:52)
[2023-09-07 15:33] VITALS: BP 118/70
[2023-09-07] MEDS: LOVENOX 40 MG SC (17:00)
--- NOTE | 2023-09-07 17:41 | CM ---
Patient seen at bedside. Patient states that he plans to go home but still has chest tube. Patient plan is to go home with no needs. CM will continue to follow for discharge planning needs.
Plan; home with no needs vs home with VN
[2023-09-07 19:00] VITALS: BP 122/69
[2023-09-07] MEDS: BENADRYL 25 MG PO (22:49)
[2023-09-07] MEDS: ZANAFLEX 2 MG PO (22:49)
[2023-09-07 23:03] VITALS: BP 119/68
[2023-09-08 03:00] VITALS: BP 104/66
[2023-09-08] MEDS: DILAUDID 1 MG IV ×4 (03:17→21:50)
[2023-09-08 07:33] VITALS: BP 112/80
--- NOTE | 2023-09-08 08:03 | W.PN.HOSP.TC ---
Today's Communication/Plan
-
Chest tube to be clamped today
Assessment / Plan
Assessment / Plan
HPI: 52-year-old male with a past medical history of hypertension, hyperlipidemia, obstructive sleep apnea, former smoker, lung radiation fibrosis, and limited stage small cell lung cancer s/p XRT/chemotherapy was found to have a right-sided
iatrogenic pneumothorax status post robotic bronchoscopy with biopsy today for his new right perihilar lung mass. Patient denies chest pain, shortness of breath. He complains of being hungry. He will be seen in conjunction with pulmonology and
interventional radiology for chest tube management of his right-sided pneumothorax.
#Right-sided iatrogenic pneumothorax status post bronchoscopy
Status post chest tube insertion 09/02
09/[address] shows moderate right-sided pneumothorax
Appreciate pulmonology and IR input, continue chest tube management as per pulmonology and IR
Chest tube to be clamped today
Pain control, discharge when cleared by pulmonology
#Right-sided lung mass
Status post bronchoscopy with biopsy 09/02
Follow-up biopsy results
#History of lung cancer
Status post chemo and radiation 5-6 years ago
[facility]
#Iron deficiency anemia
Continue ferrous sulfate
#Benign essential hypertension
Continue hydrochlorothiazide, losartan
#Hyperlipidemia
Continue statin
DVT prophylaxis�SCDs
Full code
Updated at bedside 09/07
Total time spent to see the patient on the floor, examine the patient, review data and lab results, discuss treatment plan with patient, nursing staff around 36 minutes.
Physical Exam
General: No acute distress
HEENT: Normocephalic, Atraumatic, EOMI, MMM
Respiratory: Clear to Auscultation bilaterally
Cardiac: Normal S1/S2, Regular Rate and Rhythm
Chest wall: R chest tube in place
GI: Soft, Nontender, Nondistended, Normal Bowel Sounds
Extremities: No Clubbing, Cyanosis, or Edema
Neuro: Nonfocal/Grossly Intact
Psych: Calm, Cooperative
Derm: No Visible lesions
Anticipated Discharge: Within 24 hours
Subjective/Interval History
-
Date of Service: September 08, 2023
Patient denies shortness of breath. Has musculoskeletal chest pain. No fever, no vomiting.
Objective Data
-
Vital Signs:
Vital Signs
Temp Pulse Resp BP Pulse Ox
98.2 F 98 19 112/80 100
09/08/23 07:33 09/08/23 07:33 09/08/23 07:33 09/08/23 07:33 09/08/23 07:33
I&O
09/07/23 09/08/23 09/09/23
06:59 06:59 06:59
Intake Total 3840 / 3840 1440 / 1440
Output Total 2319 / 2319 1560 / 1560
Balance 1521 / 1521 -120 / -120
[2023-09-08] MEDS: LIPITOR 40 MG PO (08:12)
[2023-09-08] MEDS: ROXICODONE 10 MG PO ×3 (08:12→17:40)
[2023-09-08] MEDS: ORETIC 12.5 MG PO (08:13)
[2023-09-08] MEDS: FEOSOL 325 MG PO (08:13)
[2023-09-08] MEDS: COZAAR 50 MG PO (08:13)
[2023-09-08 11:27] VITALS: BP 104/68
--- NOTE | 2023-09-08 11:52 | W.PN.PUL3 ---
Today's Communication / Plan
-
Clamp chest tube
Check chest x-ray at 1 PM
If stable, maintain clamp chest tube till tomorrow a.m. with chest x-ray
Hope for chest tube discontinuation 09/08 if remains stable radiographically and clinically
Reviewed with interventional radiology
Assessment
-
Assessment: 52-year-old male with a past medical history of limited stage small cell lung cancer s/p XRT/chemotherapy, history of right lung radiation fibrosis, history of KENYATTA, former tobacco use disorder (28-kchn-cjjp history), and recent
hospitalization from 08/1108/15/2023 due to pneumonia treated with antibiotics as well as prednisone taper due to wheezing on exam during that time, who now presents for elective outpatient robotic bronchoscopy which was complicated by right-sided
pneumothorax. Patient had a 14. 2 x 7.2 x 7.2 cm right perihilar mass seen on CTA chest from 08/12/2023 and was seen in our office on 08/21/2023 Dr. Wallace. Patient continued with a subacute cough although his symptoms had markedly improved. PFTs at
that time showed mild as moderate restriction with TLC 67%, FVC: 79%. Patient presented today for robotic bronchoscopy where he underwent RML�medial segmental bronchus brushing, TBNA, TBBx with BAL, as well as brushing in the RUL�posterior
segmental bronchus + BAL. Cultures + cytology sent from BAL. There were no immediate complications and postoperatively while in PACU CXR showed a small right-sided pneumothorax that enlarged despite being on NRB at 15 L/min. Patient denies any
chest pain, shortness of breath, headache, abdominal pain, fevers or chills. , Radha, at bedside and I answered all of her and the patient's questions.
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
embolism, abnormal PFTs with mild restrictive lung disease (performed 08/21/2023)
Impression:
#Secondary pneumothorax due to robotic bronchoscopy with brushing, transbronchial needle aspiration + transbronchial biopsy on right perihilar mass seen on 08/12/2023
#Recently diagnosed pneumonia on 08/12/2023 s/p antibiotics + prednisone taper due to wheezing
#History of eosinophilia (seen on prior CBC from 10/2016) � suspect undiagnosed asthma
#History of right-sided perihilar small cell lung cancer s/p chemo/radiation (completed in 2017) with postradiation changes seen on CT chest from January 27, 2017; Hx of whole brain radiation
#Former tobacco use disorder
#Anemia
Plan:
Chest x-ray this morning stable, no worsening with stable right apical pneumothorax
Chest tube to waterseal since yesterday p.m.
Patient without complaints, mild cough
Moving forward:
There is a concern regarding possible trapped lung physiology
Less likely BPF due to lack of significant leak
I discussed case with IR to see recommendations, and given there is only a level 1 airleak on suction and when suction is held, there is no air leak at all, this is doubtful for BPF. More likely right-sided pneumothorax is trapped lung with
pneumothorax ex vacuo
Will clamp chest tube, repeat chest x-ray this afternoon. If stable, will maintain clamped and repeat x-ray in the morning and then consider discontinuing of chest tube 09/08
This was reviewed with interventional radiology
Continue with supplemental oxygen therapy
Avoid incentive spirometer, positive pressure
Continue DVT prophylaxis: Both mechanical and pharmacological. This was added
Discussion per Dr. Juárez:
- Follow-up pathology and microbiology from robotic bronchoscopy procedure --> pathology from brushing, TBNA, TBBx and BAL all negative for malignancy --> pt made aware of these results
- BAL cultures also show NGTD
- I messaged oncology (Dr. Morrow) to let him know that the patient is hospitalized and they will at least see him following discharge - he has not gotten back to me yet
- Of note, during the bronchoscopy on 09/02 there was an equipment malfunction with the radial/linear EBUS, hence this impacted my ability to get an accurate diagnosis on him, although fluoroscopy was used as
well as the boundaries were utilized using the [employer] software, hence the procedure was still done safely to minimize harm. MARJORIE via pathology saw atypical cells from the TBNA, otherwise it was non-diagnostic thus far
from brushing and TBBx
Pulmonary service will continue to follow along.
Reviewed above plan at length with patient and at bedside
Reviewed with primary service
Data:
CXR 09-05-2023: Small right apical pneumothorax, slightly improved compared to prior chest x-ray; Scalloping of the pleural margin, suggestive of pleural effusions.
CXR 09-04-2023: Repositioning of right chest tube in the interval since study earlier in the same day with significantly decreased right pneumothorax.
CXR 09-03-2023: Small right apical pneumothorax, slightly increased in size compared to prior chest x-ray.
CT Chest w/o Contrast 09-07-2023:
1. Moderate RIGHT-sided pneumothorax despite adequate positioning of lateral right chest tube. Within the anterior medial segment of the right upper lobe, there is irregular appearance of the peripheral parenchyma which may be due to underlying
paraseptal emphysema with discontinuous appearance of the visceral pleura, suspicious for the source of patient's air leak.
2. Redemonstration of irregular airspace consolidation within the central right lung with associated air bronchograms, suspicious for recurrent tumor superimposed upon radiation fibrosis. Several small nodules within both lungs redemonstrated.
3. Small amount of subcutaneous emphysema within the lateral right chest wall.
CTA Chest 08-12-2023:
1. LARGE 14 cm RECURRENT LUNG CANCER in the PERIHILAR RIGHT LUNG involving the right upper, middle, and lower lobes with encasement of the proximal bronchi and pulmonary arteries. Progressive radiation pneumonitis or pneumonia are considered much
less likely etiologies for the extensive perihilar consolidation.
2. Small pulmonary metastases in the right lower lobe which have increased in size.
3. Mild scarring throughout the peripheral right lung.
4. Severe scarring in the upper pole of the left kidney.
Subjective Data
-
Date of Service:
Date of Service: September 08, 2023
Chief Complaint: Pulmonary Follow Up
Subjective:
Patient examined earlier this morning. Patient is without any complaints. Denies shortness of breath, chest pain except chest tube discomfort. Denies lightheadedness, dizziness, wheeze, palpitations. at bedside. Chest tube to waterseal
since yesterday p.m.
Objective Data
Data Reviewed
Vital Signs / I&O / Oxygen:
Vital Signs
Temp Pulse Resp BP Pulse Ox
98.4 F 109 19 104/68 99
09/08/23 11:27 09/08/23 11:27 09/08/23 11:27 09/08/23 11:27 09/08/23 11:27
Intake and Output
09/07/23 09/08/23 09/09/23
06:59 06:59 06:59
Intake Total 3840 / 3840 1440 / 1440
Output Total 2319 / 2319 1560 / 1560
Balance 1521 / 1521 -120 / -120
SaO2 99
Nasal Cannula flow liters per 6
minute
Physical Exam
General: Comfortable
HEENT: Normocephalic and Anicteric
Cardiovascular: S1-S2, Murmur (n), Peripheral Edema (Negative) and Calf Tenderness (n)
Respiratory: Wheeze (Negative), Crackles (Right posterior hemithorax in upper lobe), Rhonchi (Negative), Non-Labored Respirations, Stridor (n) and Chest Tube (No airleak noted on waterseal)
GI: Soft, Non Distended and Non Tender
Neurology: Awake, Alert and No Motor Deficits (Moves all extremities)
Skin: Cyanosis (Negative) and Rash
Labs/Micro/Reports
Lab Data
09/04/23 05:31
09/04/23 05:31
Microbiology
09/03/23 09:54 Bronchoalveolar Lavage Acid Fast Bacilli Smear - Preliminary
09/03/23 09:54 Bronchoalveolar Lavage Acid Fast Bacilli Culture - Preliminary
09/03/23 09:54 Bronchoalveolar Lavage Acid Fast Bacilli Smear - Preliminary
09/03/23 09:54 Bronchoalveolar Lavage Acid Fast Bacilli Culture - Preliminary
09/03/23 09:54 Bronch Right Middle Lobe Respiratory Culture - Final
NO GROWTH
09/03/23 09:54 Bronch Right Middle Lobe Gram Stain - Final
09/03/23 09:54 Bronch Right Upper Lobe Respiratory Culture - Final
NO GROWTH
09/03/23 09:54 Bronch Right Upper Lobe Gram Stain - Final
[2023-09-08 15:24] VITALS: BP 108/65
[2023-09-08] MEDS: LOVENOX 40 MG SC (17:40)
[2023-09-08 19:00] VITALS: BP 104/82
[2023-09-08 23:00] VITALS: BP 114/61
[2023-09-08] MEDS: BENADRYL 25 MG PO (23:30)
[2023-09-08] MEDS: ZANAFLEX 2 MG PO (23:30)
[2023-09-09] VITALS (7 sets, daily range): BP systolic 101–121; BP diastolic 60–85
[2023-09-09] MEDS: ROXICODONE 10 MG PO ×4 (05:51→21:53)
--- NOTE | 2023-09-09 08:19 | W.PN.HOSP.TC ---
Today's Communication/Plan
-
see bold
Assessment / Plan
Assessment / Plan
HPI: 52-year-old male with a past medical history of hypertension, hyperlipidemia, obstructive sleep apnea, former smoker, lung radiation fibrosis, and limited stage small cell lung cancer s/p XRT/chemotherapy was found to have a right-sided
iatrogenic pneumothorax status post robotic bronchoscopy with biopsy today for his new right perihilar lung mass. Patient denies chest pain, shortness of breath. He complains of being hungry. He will be seen in conjunction with pulmonology and
interventional radiology for chest tube management of his right-sided pneumothorax.
#Right-sided iatrogenic pneumothorax status post bronchoscopy
09/02 Right chest tube insertion by IR
09/[address] shows moderate right-sided pneumothorax
09/08 Right chest tube exchanged for 20Fr thal-quick chest tube
Appreciate pulmonology and IR input, continue chest tube management as per pulmonology and IR
Pain control, discharge when cleared by pulmonology
#Right-sided lung mass
Status post bronchoscopy with biopsy 09/02
Biopsy results negative for malignant cells
#History of lung cancer
Status post chemo and radiation 5-6 years ago
[facility]
#Iron deficiency anemia
Continue ferrous sulfate
#Benign essential hypertension
Continue hydrochlorothiazide, losartan
#Hyperlipidemia
Continue statin
DVT prophylaxis�SCDs
Full code
Updated at bedside 09/08
Total time spent to see the patient on the floor, examine the patient, review data and lab results, discuss treatment plan with patient, nursing staff around 37 minutes.
Physical Exam
General: No acute distress
HEENT: Normocephalic, Atraumatic, EOMI, MMM
Respiratory: Clear to Auscultation bilaterally
Cardiac: Normal S1/S2, Regular Rate and Rhythm
Chest wall: R chest tube in place
GI: Soft, Nontender, Nondistended, Normal Bowel Sounds
Extremities: No Clubbing, Cyanosis, or Edema
Neuro: Nonfocal/Grossly Intact
Psych: Calm, Cooperative
Derm: No Visible lesions
Anticipated Discharge: 24 - 48 hours
Subjective/Interval History
-
Date of Service: September 09, 2023
Denies shortness of breath, or coughing. Chest pain controlled with pain medications. No fever, no vomiting.
Objective Data
-
Vital Signs:
Vital Signs
Temp Pulse Resp BP Pulse Ox
98.6 F 89 17 101/60 99
09/09/23 07:25 09/09/23 07:25 09/09/23 07:25 09/09/23 07:25 09/09/23 07:25
I&O
09/08/23 09/09/23 09/10/23
06:59 06:59 06:59
Intake Total 1440 / 1440 2039
Output Total 1560 / 1560 655 / 655 5 / 5
Balance -120 / -120 1385 / 1385 -5 / -5
[2023-09-09] MEDS: DILAUDID 1 MG IV ×3 (09:00→19:43)
[2023-09-09] MEDS: LIPITOR 40 MG PO (09:09)
[2023-09-09] MEDS: COZAAR 50 MG PO (09:09)
[2023-09-09] MEDS: ORETIC 12.5 MG PO (09:09)
[2023-09-09] MEDS: FEOSOL 325 MG PO (09:09)
--- NOTE | 2023-09-09 10:25 | PTCARENOTE ---
Pt transferred to IR on stretcher via transport team
--- NOTE | 2023-09-09 11:34 | W.PN.IRAD.PR ---
Procedure Note
-
Right chest tube exchanged for 20Fr thal-quick chest tube, positioned with tip at apex. No immediate complications. No change chest tube orders, continue suction -20mmHg as ordered.
--- NOTE | 2023-09-09 15:59 | W.PN.PUL3 ---
Today's Communication / Plan
-
The maintain chest tube to -20 mm of water suction
Daily chest x-ray
Pain control, bowel regimen as needed
DVT prophylaxis
Assessment
-
Assessment: 52-year-old male with a past medical history of limited stage small cell lung cancer s/p XRT/chemotherapy, history of right lung radiation fibrosis, history of KENYATTA, former tobacco use disorder ([id number] history), and recent
hospitalization from 08/1108/15/2023 due to pneumonia treated with antibiotics as well as prednisone taper due to wheezing on exam during that time, who now presents for elective outpatient robotic bronchoscopy which was complicated by right-sided
pneumothorax. Patient had a 14. 2 x 7.2 x 7.2 cm right perihilar mass seen on CTA chest from 08/12/2023 and was seen in our office on 08/21/2023 Dr. Wallace. Patient continued with a subacute cough although his symptoms had markedly improved. PFTs at
that time showed mild as moderate restriction with TLC 67%, FVC: 79%. Patient presented today for robotic bronchoscopy where he underwent RML�medial segmental bronchus brushing, TBNA, TBBx with BAL, as well as brushing in the RUL�posterior
segmental bronchus + BAL. Cultures + cytology sent from BAL. There were no immediate complications and postoperatively while in PACU CXR showed a small right-sided pneumothorax that enlarged despite being on NRB at 15 L/min. Patient denies any
chest pain, shortness of breath, headache, abdominal pain, fevers or chills. , Radha, at bedside and I answered all of her and the patient's questions.
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
embolism, abnormal PFTs with mild restrictive lung disease (performed 08/21/2023)
Impression:
#Secondary pneumothorax due to robotic bronchoscopy with brushing, transbronchial needle aspiration + transbronchial biopsy on right perihilar mass seen on 08/12/2023
#Recently diagnosed pneumonia on 08/12/2023 s/p antibiotics + prednisone taper due to wheezing
#History of eosinophilia (seen on prior CBC from 10/2016) � suspect undiagnosed asthma
#History of right-sided perihilar small cell lung cancer s/p chemo/radiation (completed in 2018) with postradiation changes seen on CT chest from January 27, 2017; Hx of whole brain radiation
#Former tobacco use disorder
#Anemia
Plan/recommendations
Chest tube exchanged for a 20 Ukrainian per IR 09/08
Per IR, pneumothorax appears to be decreased
Chest tube without any airleak at this time, remains -20 suction
Patient is having more pain with chest tube
Otherwise denies any shortness of breath
Moving forward:
There is a concern regarding possible trapped lung physiology
Less likely BPF due to lack of significant leak
Continue with 20 Ukrainian chest tube -20 suction for now
Repeat x-ray in the morning
I am inclined to maintain to suction for greater than 24 hours, consider waterseal/clamping on 09/10
Daily chest x-ray
Continue with supplemental oxygen therapy
Avoid incentive spirometer, positive pressure
Continue DVT prophylaxis: Both mechanical and pharmacological.
Discussion per Dr. Juárez:
- Follow-up pathology and microbiology from robotic bronchoscopy procedure --> pathology from brushing, TBNA, TBBx and BAL all negative for malignancy --> pt made aware of these results
- BAL cultures also show NGTD
- I messaged oncology (Dr. Morrow) to let him know that the patient is hospitalized and they will at least see him following discharge - he has not gotten back to me yet
- Of note, during the bronchoscopy on 09/02 there was an equipment malfunction with the radial/linear EBUS, hence this impacted my ability to get an accurate diagnosis on him, although fluoroscopy was used as
well as the boundaries were utilized using the [employer] software, hence the procedure was still done safely to minimize harm. MARJORIE via pathology saw atypical cells from the TBNA, otherwise it was non-diagnostic thus far
from brushing and TBBx
Pulmonary service will continue to follow along.
Reviewed above plan at length with patient and at bedside
Reviewed with interventional radiology
Data:
CXR 09-05-2023: Small right apical pneumothorax, slightly improved compared to prior chest x-ray; Scalloping of the pleural margin, suggestive of pleural effusions.
CXR 09-04-2023: Repositioning of right chest tube in the interval since study earlier in the same day with significantly decreased right pneumothorax.
CXR 09-03-2023: Small right apical pneumothorax, slightly increased in size compared to prior chest x-ray.
CT Chest w/o Contrast 09-07-2023:
1. Moderate RIGHT-sided pneumothorax despite adequate positioning of lateral right chest tube. Within the anterior medial segment of the right upper lobe, there is irregular appearance of the peripheral parenchyma which may be due to underlying
paraseptal emphysema with discontinuous appearance of the visceral pleura, suspicious for the source of patient's air leak.
2. Redemonstration of irregular airspace consolidation within the central right lung with associated air bronchograms, suspicious for recurrent tumor superimposed upon radiation fibrosis. Several small nodules within both lungs redemonstrated.
3. Small amount of subcutaneous emphysema within the lateral right chest wall.
CTA Chest 08-12-2023:
1. LARGE 14 cm RECURRENT LUNG CANCER in the PERIHILAR RIGHT LUNG involving the right upper, middle, and lower lobes with encasement of the proximal bronchi and pulmonary arteries. Progressive radiation pneumonitis or pneumonia are considered much
less likely etiologies for the extensive perihilar consolidation.
2. Small pulmonary metastases in the right lower lobe which have increased in size.
3. Mild scarring throughout the peripheral right lung.
4. Severe scarring in the upper pole of the left kidney.
Subjective Data
-
Date of Service:
Date of Service: September 09, 2023
Chief Complaint: Pulmonary Follow Up
Subjective:
Patient had exchange of chest tube to larger chest tube, [address] Denies any shortness of breath, wheeze. Chest discomfort from chest tube otherwise appears to be in good spirits. Moving bowels
Objective Data
Data Reviewed
Vital Signs / I&O / Oxygen:
Vital Signs
Temp Pulse Resp BP Pulse Ox
98.4 F 105 17 121/85 96
09/09/23 12:20 09/09/23 12:20 09/09/23 12:20 09/09/23 12:20 09/09/23 12:20
Intake and Output
09/08/23 09/09/23 09/10/23
06:59 06:59 06:59
Intake Total 1440 / 1440 2040 / 2040
Output Total 1560 / 1560 655 / 655 5 / 5
Balance -120 / -120 1385 / 1385 -5 / -5
SaO2 96
Nasal Cannula flow liters per 6
minute
Physical Exam
General: Comfortable
HEENT: Normocephalic and Anicteric
Cardiovascular: S1-S2, Murmur (n), Peripheral Edema (Negative) and Calf Tenderness (n)
Respiratory: Wheeze (Negative), Crackles (Right posterior hemithorax in upper lobe), Rhonchi (Negative), Non-Labored Respirations, Stridor (n), Chest Tube (No airleak noted on -20 suction) and Other (Better air movement right side)
GI: Soft, Non Distended and Non Tender
Neurology: Awake, Alert and No Motor Deficits (Moves all extremities)
Skin: Cyanosis (Negative) and Rash
Labs/Micro/Reports
Lab Data
09/04/23 05:31
09/04/23 05:31
[2023-09-09] MEDS: LOVENOX 40 MG SC (17:51)
[2023-09-09] MEDS: ZANAFLEX 2 MG PO (23:32)
[2023-09-09] MEDS: BENADRYL 25 MG PO (23:32)
[2023-09-10 03:00] VITALS: BP 128/74
[2023-09-10] MEDS: ROXICODONE 10 MG PO ×4 (04:34→22:12)
[2023-09-10 07:30] VITALS: BP 135/85
[2023-09-10] MEDS: DILAUDID 1 MG IV ×3 (07:48→19:52)
[2023-09-10] MEDS: LIPITOR 40 MG PO (07:52)
[2023-09-10] MEDS: COZAAR 50 MG PO (07:52)
[2023-09-10] MEDS: ORETIC 12.5 MG PO (07:52)
[2023-09-10] MEDS: FEOSOL 325 MG PO (07:52)
[2023-09-10 11:15] VITALS: BP 127/84
--- NOTE | 2023-09-10 11:51 | W.PN.PUL3 ---
Today's Communication / Plan
-
Maintain chest tube to -20 cmH2O suction
Daily chest x-ray
Pain control, bowel regimen as needed
DVT prophylaxis
Assessment
-
Assessment: 52-year-old male with a past medical history of limited stage small cell lung cancer s/p XRT/chemotherapy, history of right lung radiation fibrosis, history of KENYATTA, former tobacco use disorder (41-[id number]-hynt history), and recent
hospitalization from 08/1108/15/2023 due to pneumonia treated with antibiotics as well as prednisone taper due to wheezing on exam during that time, who now presents for elective outpatient robotic bronchoscopy which was complicated by right-sided
pneumothorax. Patient had a 14. 2 x 7.2 x 7.2 cm right perihilar mass seen on CTA chest from 08/12/2023 and was seen in our office on 08/21/2023 Dr. Wallace. Patient continued with a subacute cough although his symptoms had markedly improved. PFTs at
that time showed mild as moderate restriction with TLC 67%, FVC: 79%. Patient presented today for robotic bronchoscopy where he underwent RML�medial segmental bronchus brushing, TBNA, TBBx with BAL, as well as brushing in the RUL�posterior
segmental bronchus + BAL. Cultures + cytology sent from BAL. There were no immediate complications and postoperatively while in PACU CXR showed a small right-sided pneumothorax that enlarged despite being on NRB at 15 L/min. Patient denies any
chest pain, shortness of breath, headache, abdominal pain, fevers or chills. , Radha, at bedside and I answered all of her and the patient's questions.
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
embolism, abnormal PFTs with mild restrictive lung disease (performed 08/21/2023)
Impression:
#Secondary pneumothorax due to robotic bronchoscopy with brushing, transbronchial needle aspiration + transbronchial biopsy on right perihilar mass seen on 08/12/2023 in setting of radiation-induced lung injury
#Recently diagnosed pneumonia on 08/12/2023 s/p antibiotics + prednisone taper due to wheezing
#History of eosinophilia (seen on prior CBC from 10/2016) � suspect undiagnosed asthma
#History of right-sided perihilar small cell lung cancer s/p chemo/radiation (completed in 2018) with postradiation changes seen on CT chest from January 27, 2017; Hx of whole brain radiation
#Former tobacco use disorder
#Anemia
Plan/recommendations
Chest tube exchanged for a 20 Uzbek per IR 09/08
Per IR, pneumothorax appears to be decreased
Chest tube without any airleak at this time, remains -20 suction
Patient is having more pain with chest tube
Otherwise denies any shortness of breath
Moving forward:
There is a concern regarding possible trapped lung physiology
Less likely BPF due to lack of significant leak
Continue with 20 Uzbek chest tube -20 suction for now
Repeat x-ray in the morning
I am inclined to maintain to suction for greater than 24 hours, consider waterseal/clamping on 09/10 ideally once R-sided PTX has fully resolved
Daily chest x-ray
Continue with supplemental oxygen therapy
Avoid incentive spirometer, positive pressure
Continue DVT prophylaxis: Both mechanical and pharmacological.
Discussion per Dr. Juárez:
- Follow-up pathology and microbiology from robotic bronchoscopy procedure --> pathology from brushing, TBNA, TBBx and BAL all negative for malignancy --> pt made aware of these results
- BAL cultures also show NGTD
- I messaged oncology (Dr. Morrow) to let him know that the patient is hospitalized and they will at least see him following discharge - he has not gotten back to me yet
- Of note, during the bronchoscopy on 09/02 there was an equipment malfunction with the radial/linear EBUS, hence this impacted my ability to get an accurate diagnosis on him, although fluoroscopy was used as
well as the boundaries were utilized using the [employer] software, hence the procedure was still done safely to minimize harm. MARJORIE via pathology saw atypical cells from the TBNA, otherwise it was non-diagnostic thus far
from brushing and TBBx
Pulmonary service will continue to follow along.
Reviewed above plan at length with patient and at bedside
Reviewed with interventional radiology
Total time spent today was 35 minutes for this encounter. Time includes reviewing laboratory test/imaging results, reviewing pertinent medical records, obtaining and reviewing medical history, performing an appropriate exam, ordering medications,
tests and procedures. Time also includes documentation of this encounter, coordinating patient care and communicating with other healthcare professionals. Total time does not include separately billed tests performed on this date of service.
Data:
CXR 09-10-2023: Continued interval improvement of now residual tiny right apical pneumothorax; Right lung volume loss, progressed.
CXR 09-05-2023: Small right apical pneumothorax, slightly improved compared to prior chest x-ray; Scalloping of the pleural margin, suggestive of pleural effusions.
CXR 09-04-2023: Repositioning of right chest tube in the interval since study earlier in the same day with significantly decreased right pneumothorax.
CXR 09-03-2023: Small right apical pneumothorax, slightly increased in size compared to prior chest x-ray.
CT Chest w/o Contrast 09-07-2023:
1. Moderate RIGHT-sided pneumothorax despite adequate positioning of lateral right chest tube. Within the anterior medial segment of the right upper lobe, there is irregular appearance of the peripheral parenchyma which may be due to underlying
paraseptal emphysema with discontinuous appearance of the visceral pleura, suspicious for the source of patient's air leak.
2. Redemonstration of irregular airspace consolidation within the central right lung with associated air bronchograms, suspicious for recurrent tumor superimposed upon radiation fibrosis. Several small nodules within both lungs redemonstrated.
3. Small amount of subcutaneous emphysema within the lateral right chest wall.
CTA Chest 08-12-2023:
1. LARGE 14 cm RECURRENT LUNG CANCER in the PERIHILAR RIGHT LUNG involving the right upper, middle, and lower lobes with encasement of the proximal bronchi and pulmonary arteries. Progressive radiation pneumonitis or pneumonia are considered much
less likely etiologies for the extensive perihilar consolidation.
2. Small pulmonary metastases in the right lower lobe which have increased in size.
3. Mild scarring throughout the peripheral right lung.
4. Severe scarring in the upper pole of the left kidney.
Subjective Data
-
Date of Service:
Date of Service: September 10, 2023
Chief Complaint: Pulmonary Follow Up
Subjective:
Patient seen today at bedside. Chest tube at -20 cmH2O with no airleak seen either on suction or off suction. Chest tube was exchanged yesterday for a 20 Uzbek Thal-Quick. at bedside. No acute events reported overnight. He denies
headache, abdominal pain, fevers or chills, although he does have chest pain on the right side where the chest tube is located saying that it has worsened since the right-sided chest tube was exchanged yesterday.
Review of Systems
General: Other (Negative unless mentioned above)
Objective Data
Data Reviewed
Vital Signs / I&O / Oxygen:
Vital Signs
Temp Pulse Resp BP Pulse Ox
98.2 F 111 18 119/71 100
09/10/23 15:25 09/10/23 15:25 09/10/23 15:25 09/10/23 15:25 09/10/23 15:25
Intake and Output
09/09/23 09/10/23 09/11/23
06:59 06:59 06:59
Intake Total 2040 / 2040 1440 / 1440 840 / 840
Output Total 655 / 655 1278 / 1278 400 / 400
Balance 1385 / 1385 162 / 162 440 / 440
SaO2 100
Nasal Cannula flow liters per 6
minute
Physical Exam
General: Comfortable
HEENT: Normocephalic and Anicteric
Cardiovascular: S1-S2, Murmur (n), Peripheral Edema (Negative) and Calf Tenderness (n)
Respiratory: Wheeze (Negative), Crackles (Right posterior hemithorax in upper lobe), Rhonchi (Negative), Non-Labored Respirations, Stridor (n) and Chest Tube (No airleak noted on -20 suction)
GI: Soft, Non Distended and Non Tender
Neurology: AO x 3 and Tremors (Negative)
Skin: Warm, Dry and Cyanosis (Negative)
Labs/Micro/Reports
Lab Data
09/10/23 13:58
09/10/23 13:58
Microbiology
09/03/23 09:54 Bronchoalveolar Lavage Fungal Culture - Preliminary
Culture in progress.
Positive cultures are reported as soon as detected.
Final report to follow in four to five weeks.
09/03/23 09:54 Bronchoalveolar Lavage Fungal Culture - Preliminary
Culture in progress.
Positive cultures are reported as soon as detected.
Final report to follow in four to five weeks.
--- NOTE | 2023-09-10 13:27 | W.PN.HOSP.TC ---
Today's Communication/Plan
-
see bold
Assessment / Plan
Assessment / Plan
Gen: NAD, AAOx3.
Eyes: EOMI, PERRLA, no scleral icterus.
Neck: supple.
CV: tachy, irreg/irreg, +S1/S2, no m/r/g.
Resp: CTAB, no rales, wheezes, or rhonchi.
Abd: +BS, soft, NT, ND
Skin: No rashes.
Neuro: CN 2-12 intact, non-focal.
Psych: Normal mood and affect.
CT chest 09/07/23:
1. Moderate RIGHT-sided pneumothorax despite adequate positioning of lateral right chest tube. Within the anterior medial segment of the right upper lobe, there is irregular appearance of the peripheral parenchyma which may be due to underlying
paraseptal emphysema with discontinuous appearance of the visceral pleura, suspicious for the source of patient's air leak.
2. Redemonstration of irregular airspace consolidation within the central right lung with associated air bronchograms, suspicious for recurrent tumor superimposed upon radiation fibrosis. Several small nodules within both lungs redemonstrated.
3. Small amount of subcutaneous emphysema within the lateral right chest wall.
Right-sided iatrogenic pneumothorax s/p bronchoscopy:
-R-sided lung mass s/p bronch with Bx 09/03/23, NEG for malignant cells. h/o lung CA with XRT/chemo 5 years ago
-09/03/23 Right chest tube insertion by IR
-09/07/[address] showed moderate right-sided pneumothorax
-09/09/23 Right chest tube exchanged for 20Fr thal-quick chest tube
-pulm/IR following
Other problems:
Chronic Iron deficiency anemia: Continue ferrous sulfate
Essential hypertension: cont HCTZ/losartan
Hyperlipidemia: cont statin
FULL/Lovenox
Anticipated Discharge: 24 - 48 hours
Subjective/Interval History
-
Date of Service: September 10, 2023
No new/acute complaints.
Objective Data
-
Vital Signs:
Vital Signs
Temp Pulse Resp BP Pulse Ox
98.8 F 100 18 127/84 100
09/10/23 11:15 09/10/23 12:17 09/10/23 11:15 09/10/23 11:15 09/10/23 11:15
I&O
09/09/23 09/10/23 09/11/23
06:59 06:59 06:59
Intake Total 0 / 0 1440 / 1440
Output Total 655 / 655 1278 / 1278
Balance 1385 / 1385 162 / 162
[2023-09-10 14:12] LABS: Hematocrit 36.3 % (39.0-52.0); Hemoglobin 12.1 g/dL (13.0-18.0); Mean Corp Hgb Conc. 33.3 g/dL (33.0-37.0); Mean Corpuscular Hgb 31.2 pg (27.0-31.0); Mean Corpuscular Volume 93.6 fL (80.0-94.0); Mean Platelet Volume 8.7 fL (7.4-10.4); Platelet Count 322 10^3/uL (130-400); Red Blood Cell Count 3.88 10^6/uL (4.70-6.10); Red Cell Dist. Width 12.2 % (11.5-14.5)
[2023-09-10 14:22] LABS: Blood Urea Nitrogen 18 mg/dl (9-20); Calcium 10.1 mg/dl (8.4-10.2); Carbon Dioxide 31 mmol/L (22-30); Chloride 94 mmol/L (98-107); Estimated Creatinine Clearance 102 ml/min; Glucose 148 mg/dl (70-99); Potassium 4.1 mmol/L (3.5-5.1); Sodium 134 mmol/L (135-145); eGFR > 60.00
[2023-09-10 15:25] VITALS: BP 119/71
--- NOTE | 2023-09-10 16:24 | CM ---
CM reviewed chart- ADC 1-2 days
Pt remains with chest tube
Call with admissions to verify insurance
Pt's [employer] plan no longer active- admission called spouse last week to notify
[facility]
Discharge Disposition- home, no needs anticipated
[2023-09-10] MEDS: LOVENOX 40 MG SC (17:33)
[2023-09-10] MEDS: BENADRYL 25 MG PO (22:12)
[2023-09-10] MEDS: ZANAFLEX 2 MG PO (22:12)
[2023-09-10 23:10] VITALS: BP 133/79
[2023-09-11] MEDS: ROXICODONE 10 MG PO ×3 (04:27→19:43)
[2023-09-11] MEDS: DILAUDID 1 MG IV ×3 (07:46→21:47)
[2023-09-11] MEDS: FLUSH (NSS) 2 FLUSH IV (07:47)
[2023-09-11 07:48] VITALS: BP 121/85
[2023-09-11] MEDS: FEOSOL 325 MG PO (08:23)
[2023-09-11] MEDS: COZAAR 50 MG PO (08:23)
[2023-09-11] MEDS: ORETIC 12.5 MG PO (08:23)
[2023-09-11] MEDS: LIPITOR 40 MG PO (08:24)
--- NOTE | 2023-09-11 08:24 | W.PN.HOSP.TC ---
Today's Communication/Plan
-
serial CXRs
Assessment / Plan
Assessment / Plan
Gen: NAD, AAOx3.
Eyes: EOMI, PERRLA, no scleral icterus.
Neck: supple.
CV: RRR, +S1/S2, no m/r/g.
Resp: remains CTAB, no rales, wheezes, or rhonchi.
Abd: +BS, soft, NT, ND
Skin: No rashes.
Neuro: remains CN 2-12 intact, non-focal.
Psych: Normal mood and affect.
CT chest 09/07/23:
1. Moderate RIGHT-sided pneumothorax despite adequate positioning of lateral right chest tube. Within the anterior medial segment of the right upper lobe, there is irregular appearance of the peripheral parenchyma which may be due to underlying
paraseptal emphysema with discontinuous appearance of the visceral pleura, suspicious for the source of patient's air leak.
2. Redemonstration of irregular airspace consolidation within the central right lung with associated air bronchograms, suspicious for recurrent tumor superimposed upon radiation fibrosis. Several small nodules within both lungs redemonstrated.
3. Small amount of subcutaneous emphysema within the lateral right chest wall.
CXR 09/10/23: Continued interval improvement of now residual tiny right apical pneumothorax.
Right-sided iatrogenic pneumothorax s/p bronchoscopy:
-R-sided lung mass s/p bronch with Bx 09/03/23, NEG for malignant cells. h/o lung CA with XRT/chemo 5 years ago
-09/03/23 Right chest tube insertion by IR
-09/07/[address] showed moderate right-sided pneumothorax
-09/09/23 Right chest tube exchanged for 20Fr thal-quick chest tube
-pulm/IR following
Other problems:
Chronic Iron deficiency anemia: Continue ferrous sulfate
Essential hypertension: cont HCTZ/losartan
Hyperlipidemia: cont statin
FULL/Lovenox
Anticipated Discharge: Within 24 hours
Subjective/Interval History
-
Date of Service: September 11, 2023
No new complaints.
Objective Data
-
Vital Signs:
Vital Signs
Temp Pulse Resp BP Pulse Ox
98.2 F 94 17 121/85 100
09/11/23 07:48 09/11/23 07:48 09/11/23 07:48 09/11/23 07:48 09/11/23 07:48
I&O
09/10/23 09/11/23 09/12/23
06:59 06:59 06:59
Intake Total 1440 / 1440 1040 / 1040
Output Total 1278 / 1278 722 / 722
Balance 162 / 162 318 / 318
--- NOTE | 2023-09-11 13:27 | W.PN.PUL3 ---
Today's Communication / Plan
-
Remove chest tube from suction and place to continuous water seal
CXR later this afternoon - if no PTX recurrence, will clamp chest tube with plans to hopefully remove tomorrow AM
Pain control, bowel regimen as needed
DVT prophylaxis
Assessment
-
Assessment: 52-year-old male with a past medical history of limited stage small cell lung cancer s/p XRT/chemotherapy, history of right lung radiation fibrosis, history of KENYATTA, former tobacco use disorder ([id number] history), and recent
hospitalization from 08/1108/15/2023 due to pneumonia treated with antibiotics as well as prednisone taper due to wheezing on exam during that time, who now presents for elective outpatient robotic bronchoscopy which was complicated by right-sided
pneumothorax. Patient had a 14. 2 x 7.2 x 7.2 cm right perihilar mass seen on CTA chest from 08/12/2023 and was seen in our office on 08/21/2023 Dr. Wallace. Patient continued with a subacute cough although his symptoms had markedly improved. PFTs at
that time showed mild as moderate restriction with TLC 67%, FVC: 79%. Patient presented today for robotic bronchoscopy where he underwent RML�medial segmental bronchus brushing, TBNA, TBBx with BAL, as well as brushing in the RUL�posterior
segmental bronchus + BAL. Cultures + cytology sent from BAL. There were no immediate complications and postoperatively while in PACU CXR showed a small right-sided pneumothorax that enlarged despite being on NRB at 15 L/min. Patient denies any
chest pain, shortness of breath, headache, abdominal pain, fevers or chills. , Radha, at bedside and I answered all of her and the patient's questions.
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
embolism, abnormal PFTs with mild restrictive lung disease (performed 08/21/2023)
Impression:
#Secondary pneumothorax due to robotic bronchoscopy with brushing, transbronchial needle aspiration + transbronchial biopsy on right perihilar mass seen on 08/12/2023 in setting of radiation-induced lung injury
#Recently diagnosed pneumonia on 08/12/2023 s/p antibiotics + prednisone taper due to wheezing
#History of eosinophilia (seen on prior CBC from 10/2016) � suspect undiagnosed asthma
#History of right-sided perihilar small cell lung cancer s/p chemo/radiation (completed in 2017) with postradiation changes seen on CT chest from January 27, 2017; Hx of whole brain radiation
#Former tobacco use disorder
#Anemia
Plan/recommendations
Chest tube exchanged for a 20 Urdu per IR 09/08
Per IR, pneumothorax appeared to be decreased
Chest tube without any airleak at this time, remains -20 suction
Patient is having more pain with chest tube
Otherwise denies any shortness of breath
CXR this AM shows resolved PTX
Moving forward:
There was a concern regarding possible trapped lung physiology
Doubtful to be a BPF due to lack of significant leak
Remove chest tube from suction and place to continuous water seal (CWS)
Repeat x-ray later this afternoon --> if CXr shows continued resolved PTX, then I will clamp chest tube with repeat CXR tomorrow AM
If tomorrow AM's CXR still shows resolved PTX, then I will remove chest tube tomorrow
Ok to stop supplemental oxygen at this time
Avoid incentive spirometer, positive pressure
Continue DVT prophylaxis: Both mechanical and pharmacological.
Discussion per Dr. Juárez:
- Follow-up pathology and microbiology from robotic bronchoscopy procedure --> pathology from brushing, TBNA, TBBx and BAL all negative for malignancy --> pt made aware of these results
- BAL cultures also show NGTD
- I messaged oncology (Dr. Morrow) to let him know that the patient is hospitalized and they will at least see him following discharge - he has not gotten back to me yet
- Of note, during the bronchoscopy on 7/1 there was an equipment malfunction with the radial/linear EBUS, hence this impacted my ability to get an accurate diagnosis on him, although fluoroscopy was used as
well as the boundaries were utilized using the [employer] software, hence the procedure was still done safely to minimize harm. MARJORIE via pathology saw atypical cells from the TBNA, otherwise it was non-diagnostic thus far
from brushing and TBBx
Pulmonary service will continue to follow along.
Reviewed above plan at length with patient and at bedside
Reviewed with interventional radiology
Total time spent today was 35 minutes for this encounter. Time includes reviewing laboratory test/imaging results, reviewing pertinent medical records, obtaining and reviewing medical history, performing an appropriate exam, ordering medications,
tests and procedures. Time also includes documentation of this encounter, coordinating patient care and communicating with other healthcare professionals. Total time does not include separately billed tests performed on this date of service.
Data:
CXR 09-11-2023: Unchanged right chest tube. No pneumothorax identified radiographically; Unchanged volume loss right hemithorax with probable partial atelectasis right lower lobe.
CXR 09-10-2023: Continued interval improvement of now residual tiny right apical pneumothorax; Right lung volume loss, progressed.
CXR 09-05-2023: Small right apical pneumothorax, slightly improved compared to prior chest x-ray; Scalloping of the pleural margin, suggestive of pleural effusions.
CXR 09-04-2023: Repositioning of right chest tube in the interval since study earlier in the same day with significantly decreased right pneumothorax.
CXR 09-03-2023: Small right apical pneumothorax, slightly increased in size compared to prior chest x-ray.
CT Chest w/o Contrast 09-07-2023:
1. Moderate RIGHT-sided pneumothorax despite adequate positioning of lateral right chest tube. Within the anterior medial segment of the right upper lobe, there is irregular appearance of the peripheral parenchyma which may be due to underlying
paraseptal emphysema with discontinuous appearance of the visceral pleura, suspicious for the source of patient's air leak.
2. Redemonstration of irregular airspace consolidation within the central right lung with associated air bronchograms, suspicious for recurrent tumor superimposed upon radiation fibrosis. Several small nodules within both lungs redemonstrated.
3. Small amount of subcutaneous emphysema within the lateral right chest wall.
CTA Chest 08-12-2023:
1. LARGE 14 cm RECURRENT LUNG CANCER in the PERIHILAR RIGHT LUNG involving the right upper, middle, and lower lobes with encasement of the proximal bronchi and pulmonary arteries. Progressive radiation pneumonitis or pneumonia are considered much
less likely etiologies for the extensive perihilar consolidation.
2. Small pulmonary metastases in the right lower lobe which have increased in size.
3. Mild scarring throughout the peripheral right lung.
4. Severe scarring in the upper pole of the left kidney.
Subjective Data
-
Date of Service:
Date of Service: September 11, 2023
Chief Complaint: Pulmonary Follow Up
Subjective:
Pt seen today. He is doing well. Chest tube on -[id number] with no air leak, and CXR this AM shows resolved PTX. He has R-sided chest pain but it is stable, unchanged c/t yesterday. he denies SOB, abd pain, N/V/f/c.
Review of Systems
General: Other (Neg unless mentioned above)
Objective Data
Data Reviewed
Vital Signs / I&O / Oxygen:
Vital Signs
Temp Pulse Resp BP Pulse Ox
98.2 F 94 17 121/85 100
09/11/23 07:48 09/11/23 07:48 09/11/23 07:48 09/11/23 07:48 09/11/23 07:48
Intake and Output
09/10/23 09/11/23 09/12/23
06:59 06:59 06:59
Intake Total 1440 / 1440 1040 / 1040
Output Total 1278 / 1278 722 / 722
Balance 162 / 162 318 / 318
SaO2 100
Nasal Cannula flow liters per 6
minute
Physical Exam
General: Comfortable
HEENT: Normocephalic and Anicteric
Cardiovascular: S1-S2, Murmur (n), Peripheral Edema (Negative) and Calf Tenderness (n)
Respiratory: Wheeze (Negative), Crackles (Right posterior hemithorax in upper lobe), Rhonchi (Negative), Non-Labored Respirations, Stridor (n) and Chest Tube (No airleak noted on -20 suction)
GI: Soft, Non Distended and Non Tender
Neurology: AO x 3 and Tremors (Negative)
Skin: Warm, Dry and Cyanosis (Negative)
Labs/Micro/Reports
Lab Data
09/10/23 13:58
09/10/23 13:58
Microbiology
09/03/23 09:54 Bronchoalveolar Lavage Fungal Culture - Preliminary
Culture in progress.
Positive cultures are reported as soon as detected.
Final report to follow in four to five weeks.
09/03/23 09:54 Bronchoalveolar Lavage Fungal Culture - Preliminary
Culture in progress.
Positive cultures are reported as soon as detected.
Final report to follow in four to five weeks.
[2023-09-11 15:29] VITALS: BP 102/72
--- NOTE | 2023-09-11 15:48 | CM ---
Reviewed the chart notes. Patient continues with chest tube. CM continues to be available to patient/family and is monitoring medical plan for needs at discharge.
Plan: Discharge to home when medically stable.
[2023-09-11] MEDS: LOVENOX 40 MG SC (17:08)
[2023-09-11 23:25] VITALS: BP 121/81
[2023-09-11] MEDS: BENADRYL 25 MG PO (23:31)
[2023-09-11] MEDS: ZANAFLEX 2 MG PO (23:31)
[2023-09-12] MEDS: ROXICODONE 10 MG PO ×2 (03:12→07:54)
[2023-09-12 07:35] VITALS: BP 129/76
[2023-09-12] MEDS: ORETIC 12.5 MG PO (07:52)
[2023-09-12] MEDS: LIPITOR 40 MG PO (07:52)
[2023-09-12] MEDS: FEOSOL 325 MG PO (07:52)
[2023-09-12] MEDS: COZAAR 50 MG PO (07:52)
--- NOTE | 2023-09-12 08:16 | W.PN.HOSP.TC ---
Addendum entered and electronically signed by Marin Humphrey MD 09/12/23 12:06:
Case discussed with Dr. Juárez. Chest tube has been removed and the patient is medically cleared for discharge. Pulmonary will arrange for repeat chest x-ray in 5 days. Pulmonary is cleared the patient for discharge.
Total time spent on d/c = 35 min. This included today's physical exam, progress note, review of laboratory and diagnostic data, preparation of discharge documents and prescriptions, and discussions about the pt's hospital course and discharge plan
with the patient and other biomedical equipment specialist involved in the patient's care.
Original Note:
Today's Communication/Plan
-
Likely will move chest tube today. Hopefully discharge later today.
Assessment / Plan
Assessment / Plan
Gen: remains NAD, AAOx3.
Eyes: EOMI, PERRLA, no scleral icterus.
Neck: supple.
CV: RRR, +S1/S2, no m/r/g.
Resp: continues to remain CTAB, no rales, wheezes, or rhonchi.
Abd: +BS, soft, NT, ND
Skin: No rashes.
Neuro: continues to remain CN 2-12 intact, non-focal.
Psych: Normal mood and affect.
CT chest 09/07/23:
1. Moderate RIGHT-sided pneumothorax despite adequate positioning of lateral right chest tube. Within the anterior medial segment of the right upper lobe, there is irregular appearance of the peripheral parenchyma which may be due to underlying
paraseptal emphysema with discontinuous appearance of the visceral pleura, suspicious for the source of patient's air leak.
2. Redemonstration of irregular airspace consolidation within the central right lung with associated air bronchograms, suspicious for recurrent tumor superimposed upon radiation fibrosis. Several small nodules within both lungs redemonstrated.
3. Small amount of subcutaneous emphysema within the lateral right chest wall.
CXR 09/10/23: Continued interval improvement of now residual tiny right apical pneumothorax.
CXR 09/12/23: Right chest tube stable in position. Right chest volume loss with some linear opacity again seen limiting evaluation, no definitive pneumothorax.
Right-sided iatrogenic pneumothorax s/p bronchoscopy:
-R-sided lung mass s/p bronch with Bx 09/03/23, NEG for malignant cells. h/o lung CA with XRT/chemo 5 years ago
-09/03/23 Right chest tube insertion by IR
-09/07/[address] showed moderate right-sided pneumothorax
-09/09/23 Right chest tube exchanged for 20Fr thal-quick chest tube
-09/11/23 chest tube placed to waterseal
-pulm/IR following
Other problems:
Chronic Iron deficiency anemia: Continue ferrous sulfate
Essential hypertension: cont HCTZ/losartan
Hyperlipidemia: cont statin
FULL/Lovenox
Anticipated Discharge: Within 24 hours
Subjective/Interval History
-
Date of Service: September 12, 2023
Denies SOB.
Objective Data
-
Vital Signs:
Vital Signs
Temp Pulse Resp BP Pulse Ox
98.7 F 98 17 129/76 97
09/12/23 07:35 09/12/23 07:52 09/12/23 07:35 09/12/23 07:52 09/12/23 07:35
I&O
09/11/23 09/12/23 09/13/23
06:59 06:59 06:59
Intake Total 1040 / 1040 2400 / 2400
Output Total 722 / 722
Balance 318 / 318 2388 / 2388
--- NOTE | 2023-09-12 10:07 | W.PN.PUL3 ---
Today's Communication / Plan
-
Removed chest tube this AM --> there were no immediate complications s/p removal
Repeat CXR this upcoming Sunday to reassess right-sided pleural space and follow-up with me in the office
Patient stable for discharge home. Pulmonary service will now sign off. I will arrange for outpatient follow-up with me in the office with repeat CXR this upcoming Sunday. Please reconsult if there are any additional questions/concerns, or if
patient's respiratory status deteriorates.
Assessment
-
Assessment: 52-year-old male with a past medical history of limited stage small cell lung cancer s/p XRT/chemotherapy, history of right lung radiation fibrosis, history of KENYATTA, former tobacco use disorder ([id number] history), and recent
hospitalization from 08/1108/15/2023 due to pneumonia treated with antibiotics as well as prednisone taper due to wheezing on exam during that time, who now presents for elective outpatient robotic bronchoscopy which was complicated by right-sided
pneumothorax. Patient had a 14. 2 x 7.2 x 7.2 cm right perihilar mass seen on CTA chest from 08/12/2023 and was seen in our office on 08/21/2023 Dr. Wallace. Patient continued with a subacute cough although his symptoms had markedly improved. PFTs at
that time showed mild as moderate restriction with TLC 67%, FVC: 79%. Patient presented today for robotic bronchoscopy where he underwent RML�medial segmental bronchus brushing, TBNA, TBBx with BAL, as well as brushing in the RUL�posterior
segmental bronchus + BAL. Cultures + cytology sent from BAL. There were no immediate complications and postoperatively while in PACU CXR showed a small right-sided pneumothorax that enlarged despite being on NRB at 15 L/min. Patient denies any
chest pain, shortness of breath, headache, abdominal pain, fevers or chills. , Radha, at bedside and I answered all of her and the patient's questions.
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
embolism, abnormal PFTs with mild restrictive lung disease (performed 08/21/2023)
Impression:
#Secondary pneumothorax due to robotic bronchoscopy with brushing, transbronchial needle aspiration + transbronchial biopsy on right perihilar mass seen on 08/12/2023 in setting of radiation-induced lung injury - PTX now resolved as of 09/11/2023
#Recently diagnosed pneumonia on 08/12/2023 s/p antibiotics + prednisone taper due to wheezing
#History of eosinophilia (seen on prior CBC from 10/2016) � suspect undiagnosed asthma
#History of right-sided perihilar small cell lung cancer s/p chemo/radiation (completed in 2017) with postradiation changes seen on CT chest from January 27, 2017; Hx of whole brain radiation
#Former tobacco use disorder
#Anemia
Plan/recommendations
Chest tube exchanged for a 20 [place] per IR 09/08
Per IR, pneumothorax appeared to be decreased
Chest tube had no airleak as of 09/11/2023 and was clamped yesterday evening after being on continuous waterseal all day with no recurrent PTX in the evening
This morning CXR still showed no evidence of recurrent pneumothorax
He denies any shortness of breath
Moving forward:
There was a concern regarding possible trapped lung physiology
Doubtful to be a BPF as there was a lack of significant leak
CXR shows continued absence of pneumothorax after being clamped for >12-14 hours
Remove chest tube today --> there were no immediate complications s/p removal
Repeat CXR this upcoming Sunday to reassess right-sided pleural space and follow-up with me in the office
Avoid incentive spirometer, positive pressure can exacerbate or cause a pneumothorax especially this soon after initial event.
Continue DVT prophylaxis: Both mechanical and pharmacological.
Discussion per Dr. Juárez:
- Follow-up pathology and microbiology from robotic bronchoscopy procedure --> pathology from brushing, TBNA, TBBx and BAL all negative for malignancy --> pt made aware of these results
- BAL cultures also show NGTD
- I messaged oncology (Dr. Morrow) to let him know that the patient is hospitalized and they will at least see him following discharge - he has not gotten back to me yet
- Of note, during the bronchoscopy on 09/02 there was an equipment malfunction with the radial/linear EBUS, hence this impacted my ability to get an accurate diagnosis on him, although fluoroscopy was used as
well as the boundaries were utilized using the [employer] software, hence the procedure was still done safely to minimize harm. MARJORIE via pathology saw atypical cells from the TBNA, otherwise it was non-diagnostic thus far
from brushing and TBBx
Patient stable for discharge home. Pulmonary service will now sign off. I will arrange for outpatient follow-up with me in the office with repeat CXR this upcoming Sunday. Thank you for allowing us to be involved in the care of this patient.
Please reconsult if there are any additional questions/concerns, or if patient's respiratory status deteriorates.
Reviewed above plan at length with patient at bedside, and I answered all of his questions.
Total time spent today was 35 minutes for this encounter. Time includes reviewing laboratory test/imaging results, reviewing pertinent medical records, obtaining and reviewing medical history, performing an appropriate exam, ordering medications,
tests and procedures. Time also includes documentation of this encounter, coordinating patient care and communicating with other healthcare professionals. Total time does not include separately billed tests performed on this date of service.
Data:
CXR 09-12-2023: Right chest tube stable in position; Right chest volume loss with some linear opacity again seen limiting evaluation, no definitive pneumothorax.
CXR 09-11-2023: Unchanged right chest tube. No pneumothorax identified radiographically; Unchanged volume loss right hemithorax with probable partial atelectasis right lower lobe.
CXR 09-10-2023: Continued interval improvement of now residual tiny right apical pneumothorax; Right lung volume loss, progressed.
CXR 09-05-2023: Small right apical pneumothorax, slightly improved compared to prior chest x-ray; Scalloping of the pleural margin, suggestive of pleural effusions.
CXR 09-04-2023: Repositioning of right chest tube in the interval since study earlier in the same day with significantly decreased right pneumothorax.
CXR 09-03-2023: Small right apical pneumothorax, slightly increased in size compared to prior chest x-ray.
CT Chest w/o Contrast 09-07-2023:
1. Moderate RIGHT-sided pneumothorax despite adequate positioning of lateral right chest tube. Within the anterior medial segment of the right upper lobe, there is irregular appearance of the peripheral parenchyma which may be due to underlying
paraseptal emphysema with discontinuous appearance of the visceral pleura, suspicious for the source of patient's air leak.
2. Redemonstration of irregular airspace consolidation within the central right lung with associated air bronchograms, suspicious for recurrent tumor superimposed upon radiation fibrosis. Several small nodules within both lungs redemonstrated.
3. Small amount of subcutaneous emphysema within the lateral right chest wall.
CTA Chest 08-12-2023:
1. LARGE 14 cm RECURRENT LUNG CANCER in the PERIHILAR RIGHT LUNG involving the right upper, middle, and lower lobes with encasement of the proximal bronchi and pulmonary arteries. Progressive radiation pneumonitis or pneumonia are considered much
less likely etiologies for the extensive perihilar consolidation.
2. Small pulmonary metastases in the right lower lobe which have increased in size.
3. Mild scarring throughout the peripheral right lung.
4. Severe scarring in the upper pole of the left kidney.
Subjective Data
-
Date of Service:
Date of Service: September 12, 2023
Chief Complaint: Pulmonary Follow Up
Subjective:
Patient seen this morning. He is in no acute distress. CXR this morning shows resolved pneumothorax. Chest tube has been clamped since yesterday. He denies SOB, has mild right-sided chest pain, denies abdominal pain, nausea, vomiting, fevers or
chills. He is very eager to go home.
Review of Systems
General: Other (Negative unless mentioned above)
Objective Data
Data Reviewed
Vital Signs / I&O / Oxygen:
Vital Signs
Temp Pulse Resp BP Pulse Ox
98.7 F 98 17 129/76 97
09/12/23 07:35 09/12/23 07:52 09/12/23 07:35 09/12/23 07:52 09/12/23 07:35
Intake and Output
09/11/23 09/12/23 09/13/23
06:59 06:59 06:59
Intake Total 1040 / 1040 2400 / 2400
Output Total 722 / 722 700 / 700
Balance 318 / 318 2388 / 2388 -700 / -700
SaO2 97
Nasal Cannula flow liters per 6
minute
Physical Exam
General: Comfortable
HEENT: Normocephalic and Anicteric
Cardiovascular: S1-S2, Murmur (n), Peripheral Edema (Negative) and Calf Tenderness (n)
Respiratory: Wheeze (Negative), Crackles (Right hemithorax in upper lobe), Rhonchi (Negative), Non-Labored Respirations, Stridor (n) and Chest Tube (Clamped)
GI: Soft, Non Distended and Non Tender
Neurology: AO x 3 and Tremors (Negative)
Skin: Warm, Dry and Cyanosis (Negative)
Labs/Micro/Reports
Lab Data
09/10/23 13:58
09/10/23 13:58
Microbiology
09/03/23 09:54 Bronchoalveolar Lavage Fungal Culture - Preliminary
Culture in progress.
Positive cultures are reported as soon as detected.
Final report to follow in four to five weeks.
09/03/23 09:54 Bronchoalveolar Lavage Fungal Culture - Preliminary
Culture in progress.
Positive cultures are reported as soon as detected.
Final report to follow in four to five weeks.
[2023-09-12] MEDS: FLUSH (NSS) 2 FLUSH IV (10:37)
[2023-09-12] MEDS: DILAUDID 1 MG IV (10:37)
[2023-09-12 12:14] VITALS: BP 119/84
--- NOTE | 2023-09-12 12:38 | CM ---
Reviewed the chart notes and spoke with the patient at the bedside. Patient is being discharged to home today with no additional needs being identified at this time.
CM continues to be available to patient/family and is monitoring medical plan for needs at discharge.
Plan: Discharge to home today. Patient spouse will provide transportation home.
--- NOTE | 2023-09-12 14:53 | W.DCSUMMARY ---
Discharge Summary
Discharge Data
Date of Admission: 09/03/23
Date of Discharge: 09/12/23
-
Pending Results: No
Hospital Course
Primary diagnoses:
Right-sided iatrogenic pneumothorax s/p bronchoscopy
Secondary diagnoses:
Former tobacco abuse disorder
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
Chronic Iron deficiency anemia
Essential hypertension
Hyperlipidemia
Obesity due to excess calories
Consultants:
Pulmonary
Interventional radiology
Imaging:
CXR 09/03/23:
1. Small right apical pneumothorax, pleural line at approximately the level of the third posterior rib.
2. Scalloping of the margin of the pleural line, suggestive of pleural adhesions.
CT chest 09/07/23:
1. Moderate RIGHT-sided pneumothorax despite adequate positioning of lateral right chest tube. Within the anterior medial segment of the right upper lobe, there is irregular appearance of the peripheral parenchyma which may be due to underlying
paraseptal emphysema with discontinuous appearance of the visceral pleura, suspicious for the source of patient's air leak.
2. Redemonstration of irregular airspace consolidation within the central right lung with associated air bronchograms, suspicious for recurrent tumor superimposed upon radiation fibrosis. Several small nodules within both lungs redemonstrated.
3. Small amount of subcutaneous emphysema within the lateral right chest wall.
CXR 09/12/23: Right chest tube stable in position. Right chest volume loss with some linear opacity again seen limiting evaluation, no definitive pneumothorax.
Hospital course: 52-year-old male who initially presented with a right-sided iatrogenic pneumothorax status post bronchoscopy. Bronchoscopy was done for right-sided lung mass. On September 03, 2023 right-sided chest tube was inserted by interventional
radiology. Pertinent imaging above. On September 09, 2023 the chest tube was exchanged for 20Fr thal-quick chest tube. Patient's chest tubes were initially to suction. The chest tube was then placed to waterseal. Follow-up chest x-ray was obtained on
September 12, 2023 as above. Patient's chest tube was removed and he was cleared for discharge by pulmonary.
Discharge Plan
-
Patient Disposition: Home (Routine Discharge)
Discharge Diagnosis/Procedures: Right-sided iatrogenic pneumothorax s/p bronchoscopy
Condition: Good
Diet: Other diet
Additional Diets: Heart healthy
Activity: As tolerated
Driving Restrictions: As prior to admission
Bathing Restrictions: None
Others Tests: Chest x-ray in 5 days, pulmonary will arrange
Referrals:
Tru Ngo DO [Family Provider] - in less than 1 week
Juan Juárez MD [Active] - in one to two weeks
Prescriptions:
Continued
losartan 50 mg Tablet
50 mg PO DAILY
atorvastatin [Lipitor] 40 mg Tablet
40 mg PO DAILY
tizanidine 2 mg Tablet
2 mg PO HSPRN PRN (Reason: spasms)
oxycodone-acetaminophen 10-325 mg Tablet
1 tab PO Q4HPRN PRN (Reason: severe pain)
ferrous sulfate 325 mg (65 mg iron) Tablet
325 mg PO DAILY
diphenhydramine-acetaminophen [Tylenol PM Extra Strength] 25-500 mg Tablet
1 tab PO HSPRN PRN (Reason: sleep)
hydrochlorothiazide 12.5 mg Tablet
12.5 mg PO DAILY
Medical Cannibus
1 dose PO PRN PRN (Reason: sleep, anxiety, pain)
Discharge Orders:
Discharge Patient (As Directed); Ordered 09/12/23
Ordered By: Marin Humphrey
Discharge Date and Time
Discharge Date/Time: 09/12/23 13:03
Print Language: [place]
== END 2023-09-12 13:03 | disposition home or self-care (01) | DRG 167 ==
LOC: 2 SOUTH 17:00
PROVIDERS: Radiology Diagnostic Radiology; Radiology Vascular & Interventional Radiology; Registered Nurse; ADMITTING PHYSICIAN Family Medicine; ATTENDING PHYSICIAN Internal Medicine; FAMILY PHYSICIAN Family Medicine; OTHER PHYSICIAN Internal Medicine Critical Care Medicine; REFERRING PHYSICIAN Internal Medicine Hematology & Oncology
PROC: 5A19054 Respiratory Ventilation, Single, Nonmechanical (ICD-10-PCS; 2023-09-03)
PROC: 0BDD8ZX Extraction of Right Middle Lung Lobe, Via Natural or Artificial Opening Endoscopic, Diagnostic (ICD-10-PCS; 2023-09-03)
PROC: 0BBD8ZX Excision of Right Middle Lung Lobe, Via Natural or Artificial Opening Endoscopic, Diagnostic (ICD-10-PCS; 2023-09-03)
PROC: 0B9C8ZX Drainage of Right Upper Lung Lobe, Via Natural or Artificial Opening Endoscopic, Diagnostic (ICD-10-PCS; 2023-09-03)
PROC: 0B9D8ZX Drainage of Right Middle Lung Lobe, Via Natural or Artificial Opening Endoscopic, Diagnostic (ICD-10-PCS; 2023-09-03)
PROC: 5A0935A Assistance with Respiratory Ventilation, Less than 24 Consecutive Hours, High Flow/Velocity Cannula (ICD-10-PCS; 2023-09-04)
PROC: 0W9930Z Drainage of Right Pleural Cavity with Drainage Device, Percutaneous Approach (ICD-10-PCS; 2023-09-04)
PROC: 0W29X0Z Change Drainage Device in Right Pleural Cavity, External Approach (ICD-10-PCS; 2023-09-09)
DX: J95.811 Postprocedural pneumothorax (principal); J70.1 Chronic and other pulmonary manifestations due to radiation; D50.9 Iron deficiency anemia, unspecified; I10 Essential (primary) hypertension; E66.09 Other obesity due to excess calories; Z68.30 Body mass index [BMI] 30.0-30.9, adult; J98.4 Other disorders of lung; G47.33 Obstructive sleep apnea (adult) (pediatric); E78.5 Hyperlipidemia, unspecified; R91.8 Other nonspecific abnormal finding of lung field; Z79.899 Other long term (current) drug therapy; Z87.891 Personal history of nicotine dependence; Z85.118 Personal history of other malignant neoplasm of bronchus and lung; Z92.3 Personal history of irradiation; Z92.21 Personal history of antineoplastic chemotherapy; Z87.01 Personal history of pneumonia (recurrent); Z86.711 Personal history of pulmonary embolism
CPT/HCPCS: 88172; 88173; 88305; 32557; 36415; 71045; 71250; 76000; 80048; 83036; 85027; 85610; 85730; 87015; 87070; 87102; 87116; 87205; 88112; 88333; 88334; 93005; 94640; 99152; 99153; C1729; C1769

== ENCOUNTER → 2023-09-17 11:28 | Outpatient (REF) | payer MEDICAID, SELFPAY | LOC: RAD 11:28 | PROVIDERS: ATTENDING PHYSICIAN Internal Medicine Critical Care Medicine; FAMILY PHYSICIAN Family Medicine | DX: J94.2 Hemothorax (principal) | CPT/HCPCS: 71046 ==

== ENCOUNTER → 2023-10-03 13:39 | Outpatient (REF) | payer MEDICAID, SELFPAY | LOC: HWRAD 13:39 | PROVIDERS: ATTENDING PHYSICIAN Internal Medicine; FAMILY PHYSICIAN Family Medicine | DX: J95.811 Postprocedural pneumothorax (principal) | CPT/HCPCS: 71250 ==

== ENCOUNTER → 2023-11-02 09:45 | Outpatient (REF) | payer MEDICAID, OTHER, SELFPAY | LOC: DHSLP 09:45 | PROVIDERS: ATTENDING PHYSICIAN Internal Medicine; FAMILY PHYSICIAN Family Medicine | DX: G47.33 Obstructive sleep apnea (adult) (pediatric) (principal) | CPT/HCPCS: 95810 ==

== ENCOUNTER 2024-04-30 10:14 | Day surgery (SDC) | payer OTHER, SELFPAY ==
[2024-04-30] VITALS (12 sets, daily range): BP systolic 122–150; BP diastolic 69–98; BMI 30.7
[2024-04-30 10:58] LABS: Hematocrit 36.5 % (39.0-52.0); Hemoglobin 12.3 g/dL (13.0-18.0); Mean Corp Hgb Conc. 33.7 g/dL (33.0-37.0); Mean Corpuscular Hgb 31.6 pg (27.0-31.0); Mean Corpuscular Volume 93.8 fL (80.0-94.0); Mean Platelet Volume 8.9 fL (7.4-10.4); Platelet Count 323 10^3/uL (130-400); Red Blood Cell Count 3.89 10^6/uL (4.70-6.10)
[2024-04-30] MEDS: NSS 308 ML IV (10:58)
[2024-04-30] MEDS: LOW STRENGTH ASPIRIN 324 MG PO (11:01)
[2024-04-30 11:16] LABS: ALT (SGPT) 25 U/L (0-50); AST (SGOT) 22 U/L (17-59); Albumin 4.6 g/dl (3.5-5.0); Alkaline Phosphatase 83 U/L (38-126); Blood Urea Nitrogen 17 mg/dl (9-20); Calcium 10.1 mg/dl (8.4-10.2); Carbon Dioxide 26 mmol/L (22-30); Chloride 105 mmol/L (98-107); Estimated Creatinine Clearance 119 ml/min; Glucose 153 mg/dl (70-99); Potassium 4.7 mmol/L (3.5-5.1); Sodium 138 mmol/L (135-145); Total Bilirubin 0.8 mg/dl (0.2-1.3); Total Protein 7.5 g/dl (6.3-8.2); eGFR > 60.00
[2024-04-30 11:52] LABS: ACT-LR - POC 318 Seconds (116-155)
[2024-04-30 12:05] LABS: ACT-LR - POC 292 Seconds (116-155)
--- NOTE | 2024-04-30 12:10 | ITS.CL.ANGIO ---
[facility] - Angioplasty
Angioplasty
Procedure Report:
CARDIAC CATHETERIZATION REPORT
Date of Procedure: 04/30/2024
Referring: Roberto Alfaro D.O.
INDICATION: New onset, accelerating angina at rest, abnormal stress test.
PROCEDURE:
1. Left heart catheterization
2. Coronary angiography
3. Successful PCI of the first diagonal.
A total of 52 minutes of procedural/moderate sedation was utilized. An independent neuropsychology medical consultant was present to assist with and help manage the patient's level of consciousness and physiologic status.
ACCESS:
1. 6 Iraqi right radial artery using a modified Seldinger technique.
CATHETERS:
1. 5 Iraqi JR4.
2. 5 Iraqi JL 3.5.
3. 6 Iraqi EBU 3.5 guiding catheter.
HEMODYNAMIC DATA
Weight (kg): 102.5
AO (s/d/x, mmHg): 118/81/98
LV (s/x mmHg): 119/15
LEFT VENTRICULOGRAPHY: Not performed.
CORONARY ANGIOGRAPHY
Dominance: Left.
Left Main: Cloacal, bifurcating vessel.
LAD: Large size vessel giving rise to 1 large diagonal. There is an 80% lesion in the mid third of the large diagonal. There is no other coronary artery disease.
Ramus: Congenitally absent.
Circumflex: Enormous, dominant vessel giving rise to 2 obtuse marginals before terminating as a left posterior descending artery. There is at least mild to moderate tortuosity. There is no coronary artery disease.
RCA: Small, nondominant vessel that is chronically totally occluded at its origin.
INTERVENTION(S)
1. Successful PCI of the 80% D1 lesion ([employer] [place] 2.5 x 12 LISA, postdilated with a 2.5 NC balloon) with reduction in stenosis to 0%, maintaining AGUILA-3 flow.
Narrative:
The decision was made to proceed with percutaneous coronary intervention. The diagnostic catheter was removed over a wire and a 6Fr EBU 3.5 guiding catheter was advanced to the aortic root and seated in the left coronary cusp. Unfortunately, the
guiding catheter did not have enough reach to cannulate the cloacal left main. Additional heparin was given and a Power Turn Flex wire was advanced into the mid LAD, then into the large first diagonal. With wire position established, a 6 Iraqi
guide liner was advanced over the angioplasty balloon through the guiding catheter and into the LAD to allow for adequate visualization. The 80% mid diagonal lesion was predilated with a 2.0 x 12 semi-compliant balloon to 12 timothy. The semi-compliant
balloon was removed and a [employer]onic [place] 2.5 x 12 drug-eluting stent was advanced. The stent was deployed at 12 atmospheres. The stent balloon was removed. A 2.5 x 12 noncompliant balloon was advanced into the stent and the stent was
postdilated to 14 atmospheres. Angiography was performed in orthogonal views, confirming good stent expansion and an excellent angiographic result. The coronary wire was withdrawn and the guide was disengaged from the artery. The catheter was
removed over a standard J-wire.
Closure Device: Vascular band.
Radiation (mGy): 1132.42
DAP (cm2.Gy): 69.6655
Fluoroscopy time (minutes): 11.6
CONCLUSIONS
1. Left dominant circulation with an 80% lesion in the mid third of the large first diagonal, status post successful PCI ([employer] [place] 2.5 x 12 LISA, postdilated with a 2.5 NC balloon) with reduction in stenosis to 0%, maintaining AGUILA-3
flow. Consistent angina on 2 antianginal medications.
2. Normal filling pressures (LVEDP = 15 mmHg at 102.5 kg).
3. 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
RECOMMENDATIONS:
1. Expectant management after cardiac catheterization via right radial approach.
2. Limited weight bearing on the right for one week.
3. Dual antiplatelet therapy with aspirin and clopidogrel for at least 12 months, followed by aspirin indefinitely.
4. Aggressive secondary prevention with high-dose, high potency statin. Goal LDL <55.
5. OMT/GDMT as hemodynamics will tolerate.
6. Referral to cardiac rehab.
7. Due to significant right subclavian artery tortuosity and aberrant origin, any further cardiac catheterization should be performed via left radial or femoral approach.
Copy to: Roberto Alfaro D.O., Alexys Philippe M.D.
Jesus Cha DO, FACC, FACP
--- NOTE | 2024-04-30 14:11 | PTCARENOTE ---
notified RN that patient had some chest pain. When asking patient to describe his pain he said it was 2/10 and there is nothing now. He seemed unhappy that mentioned the pain to RN. No changes noted on EKG. VSS. TIMBER INSPECTOR aware. Will
continue to monitor.
--- NOTE | 2024-04-30 16:29 | W.PN.UPDATE ---
Update Note
Progress Note Update
53 yo BM s/p PCI Diag (same day). He denies cp, sob, vinay diet, voiding, R rad site c/d/i no HT, EKG SR no ST changes. He will be on DAPT ASA/Plavix. He will continue atorvastatin 40mg. Cardiac rehab c/s. Activity restrictions reviewed. He will f/u
Dr. Alfaro in 2-4 weeks. He is for d/c home after 5pm.
CONCLUSIONS
1. Left dominant circulation with an 80% lesion in the mid third of the large first diagonal, status post successful PCI ([employer] [place] 2.5 x 12 LISA, postdilated with a 2.5 NC balloon) with reduction in stenosis to 0%, maintaining AGUILA-3
flow. Consistent angina on 2 antianginal medications.
2. Normal filling pressures (LVEDP = 15 mmHg at 102.5 kg).
3. 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
== END 2024-04-30 16:50 | disposition home or self-care (01) ==
LOC: CATH 10:14
PROVIDERS: ATTENDING PHYSICIAN Internal Medicine Cardiovascular Disease; OTHER PHYSICIAN Internal Medicine Cardiovascular Disease
DX: I25.119 Atherosclerotic heart disease of native coronary artery with unspecified angina pectoris (principal); R94.39 Abnormal result of other cardiovascular function study; Z79.02 Long term (current) use of antithrombotics/antiplatelets; Z79.82 Long term (current) use of aspirin; Q27.8 Other specified congenital malformations of peripheral vascular system
CPT/HCPCS: 99152; 99153; 80053; 85027; 85347; 93005; 93458; C1725; C1874; C1894; C9600; Q9967